=== PATIENT | male | born 1930 | race Caucasian/White ===

== ENCOUNTER 2016-06-04 16:49 | Inpatient (IN) | payer MEDICARE, OTHER ==
[2016-06-04] MEDS ORDERED: ACETAMINOPHEN IV (For NPO) 1,000 MG in EMPTY BAG 1 BAG IVPB STA (17:15)
[2016-06-04] MEDS: SODIUM CHLORIDE 0.9% 500 ML IV SCH ×2 (17:20→18:15)
[2016-06-04 17:28] LABS: Basophils % (A) 0 %; CH 32.2; CHCM 34.3; Eosinophils % (A) 0 %; HCT 39.7 % (39.0-53.0); HDW 2.53; HGB 13.5 gm/dL (13.0-17.5); Luc # (Auto) 0.11; Luc % (Auto) 1; Lymphocytes # (A) 0.5 k/uL (1.0-4.8); Lymphocytes % (A) 3 %; MCV 94.3 fL (80.0-100.0); Mean Platelet Volume 8.2; Monocytes # (A) 0.9 k/uL (0-1.0); Monocytes % (A) 6 %; Neutrophils # (A) 12.9 k/uL (1.3-7.7); Neutrophils % (A) 89 %; RBC 4.21 m/uL (4.30-5.90); RDW 13.3 % (11.5-15.5); WBC 14.5 k/uL (3.8-10.6); WBC (Perox) 14.65
--- NOTE | 2016-06-04 17:31 | ED ---
General Adult HPI - General Chief complaint: Altered Mental Status Stated complaint: Altered Mental Time Seen by Provider: 06/04/16 16:57 Source: patient, EMS, RN notes reviewed Mode of arrival: EMS Limitations: no limitations, altered mental status - History of Present Illness Initial comments: Patient is a pleasant 85-year-old male presenting to the emergency department complaining of reported change in mental status. Patient states he feels fine and has no real complaints. Patient does admit to occasional cough. Patient reportedly has chronic mental status problems however worse today. Patient denies chest pain. No abdominal pain. No dysuria. Patient states he does not normally know what the year is. Patient denies fever. - Related Data Home Medications Medication Instructions Recorded Confirmed Aspirin EC [Ecotrin Low Dose] 81 mg PO DAILY 05/02/15 06/04/16 Donepezil [Aricept] 20 mg PO DAILY 05/02/15 06/04/16 Gabapentin [Neurontin] 600 mg PO BID 05/02/15 06/04/16 Oxybutynin Chloride [Ditropan] 5 mg PO DAILY 05/02/15 06/04/16 Terazosin [Hytrin] 5 mg PO HS 05/02/15 06/04/16 Ferrous Sulfate [Feosol] 325 mg PO BID 06/04/16 06/04/16 Gabapentin [Neurontin] 300 mg PO HS 06/04/16 06/04/16 Glucosamine HCl/Chondr Downing A Na 1 tab PO DAILY 06/04/16 06/04/16 [Osteo Bi-Flex Caplet] HYDROcodone/APAP 10-325MG [[place] 1 tab PO QID PRN 06/04/16 06/04/16 10-325] Metoprolol Tartrate [Lopressor] 12.5 mg PO BID 06/04/16 06/04/16 Omeprazole 20 mg PO DAILY 06/04/16 06/04/16 Simvastatin [Zocor] 20 mg PO HS 06/04/16 06/04/16 Allergies Allergy/AdvReac Type Severity Reaction Status Date / Time No Known Allergies Allergy Verified 06/04/16 17:28 Review of Systems ROS Statement: Those systems with pertinent positive or pertinent negative responses have been documented in the HPI. ROS Other: All systems not noted in ROS Statement are negative. Constitutional: Denies: fever Eyes: Denies: eye pain ENT: Denies: ear pain Respiratory: Reports: cough Cardiovascular: Denies: chest pain Endocrine: Denies: fatigue Gastrointestinal: Denies: abdominal pain Genitourinary: Denies: dysuria Musculoskeletal: Denies: back pain Skin: Denies: rash Neurological: Reports: confusion. Denies: headache Past Medical History Past Medical History: Hyperlipidemia, Hypertension Additional Past Medical History / Comment(s): neuropathy History of Any Multi-Drug Resistant Organisms: None Reported Past Surgical History: Back Surgery Past Psychological History: Depression Smoking Status: Former smoker Past Alcohol Use History: None Reported Past Drug Use History: None Reported General Exam Limitations: no limitations, altered mental status General appearance: alert, in no apparent distress Head exam: Present: atraumatic Eye exam: Present: normal appearance, PERRL ENT exam: Present: normal oropharynx Neck exam: Present: normal inspection. Absent: meningismus Respiratory exam: Present: normal lung sounds bilaterally Cardiovascular Exam: Present: normal rhythm, tachycardia GI/Abdominal exam: Present: soft. Absent: tenderness Extremities exam: Present: normal inspection. Absent: pedal edema, calf tenderness Neurological exam: Present: alert Psychiatric exam: Present: normal affect, normal mood Skin exam: Absent: rash Course Vital Signs 06/04/16 06/04/16 16:51 17:26 Temperature 101.8 F H Pulse Rate 106 H 96 Respiratory 18 18 Rate Blood Pressure 123/82 110/61 O2 Sat by Pulse 95 100 Oximetry - Reevaluation(s) Reevaluation #1: 06/04/16 17:59 Patient found to have urinary tract infection. Patient does meet sepsis criteria, diagnosed at 17:59. IV antibiotics have been ordered. EKG Findings - EKG Comments: EKG Findings:: Sinus tachycardia 105 PVC. MD 200. QRS 88. QT 338. QTC 446. Normal axis. Normal QRS. Normal ST-T. Medical Decision Making - Medical Decision Making Dr. rosales has been paged for admission. Patient reevaluated. Patient and family updated on results and plan. Admission orders written. - Lab Data Result diagrams: 06/04/16 17:00 06/04/16 17:00 Lab Results 06/04/16 06/04/16 06/04/16 Range/Units 17:00 17:00 17:00 WBC 14.5 H (3.8-10.6) k/uL RBC 4.21 L (4.30-5.90) m/uL Hgb 13.5 (13.0-17.5) gm/dL Hct 39.7 (39.0-53.0) % MCV 94.3 (80.0-100.0) fL MCH 32.0 (25.0-35.0) pg MCHC 34.0 (31.0-37.0) g/dL RDW 13.3 (11.5-15.5) % Plt Count 108 L (150-450) k/uL Neutrophils % 89 % Lymphocytes % 3 % Monocytes % 6 % Eosinophils % 0 % Basophils % 0 % Neutrophils # 12.9 H (1.3-7.7) k/uL Lymphocytes # 0.5 L (1.0-4.8) k/uL Monocytes # 0.9 (0-1.0) k/uL Eosinophils # 0.0 (0-0.7) k/uL Basophils # 0.0 (0-0.2) k/uL PT (9.0-12.0) sec INR (<1.1) APTT (22.0-30.0) sec Sodium 135 L (137-145) mmol/L Potassium 4.0 (3.5-5.1) mmol/L Chloride 100 (98-107) mmol/L Carbon Dioxide 26 (22-30) mmol/L Anion Gap 9 mmol/L BUN 17 (9-20) mg/dL Creatinine 1.25 (0.66-1.25) mg/dL Est GFR (MDRD) Af Amer >60 (>60 ml/min/1.73 sqM) Est GFR (MDRD) Non-Af 55 (>60 ml/min/1.73 sqM) Glucose 114 H (74-99) mg/dL Plasma Lactic Acid Guillermo (0.7-2.0) mmol/L Calcium 9.1 (8.4-10.2) mg/dL Total Bilirubin 2.0 H (0.2-1.3) mg/dL AST 23 (17-59) U/L ALT 26 (21-72) U/L Alkaline Phosphatase 86 (38-126) U/L Total Creatine Kinase 85 (55-170) U/L CK-MB (CK-2) 0.9 (0.0-2.4) ng/mL CK-MB (CK-2) Rel Index 1.1 Troponin I 0.029 (0.000-0.034) ng/mL Total Protein 6.4 (6.3-8.2) g/dL Albumin 3.7 (3.5-5.0) g/dL Urine Color Urine Appearance (Clear) Urine pH (5.0-8.0) Ur Specific [place] (1.001-1.035) Urine Protein (Negative) Urine Glucose (UA) (Negative) Urine Ketones (Negative) Urine Blood (Negative) Urine Nitrate (Negative) Urine Bilirubin (Negative) Urine Urobilinogen (<2.0) mg/dL Ur Leukocyte Esterase (Negative) Urine RBC (0-5) /hpf Urine WBC (0-5) /hpf Urine WBC Clumps (None) /hpf Urine Bacteria (None) /hpf Urine Mucus (None) /hpf Influenza Type A RNA (Not Detectd) Influenza Type B (PCR) (Not Detectd) 06/04/16 06/04/16 06/04/16 Range/Units 17:00 17:00 17:00 WBC (3.8-10.6) k/uL RBC (4.30-5.90) m/uL Hgb (13.0-17.5) gm/dL Hct (39.0-53.0) % MCV (80.0-100.0) fL MCH (25.0-35.0) pg MCHC (31.0-37.0) g/dL RDW (11.5-15.5) % Plt Count (150-450) k/uL Neutrophils % % Lymphocytes % % Monocytes % % Eosinophils % % Basophils % % Neutrophils # (1.3-7.7) k/uL Lymphocytes # (1.0-4.8) k/uL Monocytes # (0-1.0) k/uL Eosinophils # (0-0.7) k/uL Basophils # (0-0.2) k/uL PT 11.7 (9.0-12.0) sec INR 1.2 (<1.1) APTT 25.5 (22.0-30.0) sec Sodium (137-145) mmol/L Potassium (3.5-5.1) mmol/L Chloride (98-107) mmol/L Carbon Dioxide (22-30) mmol/L Anion Gap mmol/L BUN (9-20) mg/dL Creatinine (0.66-1.25) mg/dL Est GFR (MDRD) Af Amer (>60 ml/min/1.73 sqM) Est GFR (MDRD) Non-Af (>60 ml/min/1.73 sqM) Glucose (74-99) mg/dL Plasma Lactic Acid Guillermo 1.2 (0.7-2.0) mmol/L Calcium (8.4-10.2) mg/dL Total Bilirubin (0.2-1.3) mg/dL AST (17-59) U/L ALT (21-72) U/L Alkaline Phosphatase (38-126) U/L Total Creatine Kinase (55-170) U/L CK-MB (CK-2) (0.0-2.4) ng/mL CK-MB (CK-2) Rel Index Troponin I (0.000-0.034) ng/mL Total Protein (6.3-8.2) g/dL Albumin (3.5-5.0) g/dL Urine Color Urine Appearance (Clear) Urine pH (5.0-8.0) Ur Specific [place] (1.001-1.035) Urine Protein (Negative) Urine Glucose (UA) (Negative) Urine Ketones (Negative) Urine Blood (Negative) Urine Nitrate (Negative) Urine Bilirubin (Negative) Urine Urobilinogen (<2.0) mg/dL Ur Leukocyte Esterase (Negative) Urine RBC (0-5) /hpf Urine WBC (0-5) /hpf Urine WBC Clumps (None) /hpf Urine Bacteria (None) /hpf Urine Mucus (None) /hpf Influenza Type A RNA Not Detected (Not Detectd) Influenza Type B (PCR) Not Detected (Not Detectd) 06/04/16 Range/Units 17:00 WBC (3.8-10.6) k/uL RBC (4.30-5.90) m/uL Hgb (13.0-17.5) gm/dL Hct (39.0-53.0) % MCV (80.0-100.0) fL MCH (25.0-35.0) pg MCHC (31.0-37.0) g/dL RDW (11.5-15.5) % Plt Count (150-450) k/uL Neutrophils % % Lymphocytes % % Monocytes % % Eosinophils % % Basophils % % Neutrophils # (1.3-7.7) k/uL Lymphocytes # (1.0-4.8) k/uL Monocytes # (0-1.0) k/uL Eosinophils # (0-0.7) k/uL Basophils # (0-0.2) k/uL PT (9.0-12.0) sec INR (<1.1) APTT (22.0-30.0) sec Sodium (137-145) mmol/L Potassium (3.5-5.1) mmol/L Chloride (98-107) mmol/L Carbon Dioxide (22-30) mmol/L Anion Gap mmol/L BUN (9-20) mg/dL Creatinine (0.66-1.25) mg/dL Est GFR (MDRD) Af Amer (>60 ml/min/1.73 sqM) Est GFR (MDRD) Non-Af (>60 ml/min/1.73 sqM) Glucose (74-99) mg/dL Plasma Lactic Acid Guillermo (0.7-2.0) mmol/L Calcium (8.4-10.2) mg/dL Total Bilirubin (0.2-1.3) mg/dL AST (17-59) U/L ALT (21-72) U/L Alkaline Phosphatase (38-126) U/L Total Creatine Kinase (55-170) U/L CK-MB (CK-2) (0.0-2.4) ng/mL CK-MB (CK-2) Rel Index Troponin I (0.000-0.034) ng/mL Total Protein (6.3-8.2) g/dL Albumin (3.5-5.0) g/dL Urine Color Yellow Urine Appearance Turbid (Clear) Urine pH 5.5 (5.0-8.0) Ur Specific [place] 1.013 (1.001-1.035) Urine Protein 2+ H (Negative) Urine Glucose (UA) Negative (Negative) Urine Ketones Negative (Negative) Urine Blood Moderate H (Negative) Urine Nitrate Positive (Negative) Urine Bilirubin Negative (Negative) Urine Urobilinogen 2.0 (<2.0) mg/dL Ur Leukocyte Esterase Large H (Negative) Urine RBC 50 H (0-5) /hpf Urine WBC >182 H (0-5) /hpf Urine WBC Clumps Many H (None) /hpf Urine Bacteria Occasional H (None) /hpf Urine Mucus Rare H (None) /hpf Influenza Type A RNA (Not Detectd) Influenza Type B (PCR) (Not Detectd) - Radiology Data Radiology results: report reviewed (Computed tomography scan of the brain shows atrophy, no acute process.), image reviewed (Chest x-ray shows no acute process) Critical Care Time Critical Care Time: Yes Total Critical Care Time: 32 Disposition Clinical Impression: Sepsis, Altered mental status, Urinary tract infection Disposition: ADMITTED IP TO THIS HOSP
[2016-06-04 17:35] LABS: Appearance,Urine Turbid (Clear); Bacteria,Urine Occasional /hpf; Bilirubin,Urine Negative (Negative); Glucose,Urine (UA) Negative (Negative); Ketones,Urine Negative (Negative); Leukocyte Esterase,Urine Large (Negative); Mucus,Urine Rare /hpf; Nitrite,Urine Positive (Negative); PH, Urine 5.5 (5.0-8.0); Particle Count 18441; Protein,Urine 2+ (Negative); RBC,Urine 50 /hpf (0-5); Specific Gravity,Urine 1.013 (1.001-1.035); UA Billing (MACRO vs. MICRO) MICRO; WBC,Urine >182 /hpf (0-5)
[2016-06-04 17:37] LABS: INR 1.2 (<1.1); Partial Thromboplastin Time 25.5 sec (22.0-30.0); Prothrombin Time 11.7 sec (9.0-12.0)
[2016-06-04 17:44] LABS: ALT 26 U/L (21-72); AST 23 U/L (17-59); Alkaline Phosphatase 86 U/L (38-126); Anion Gap 9 mmol/L; Blood Urea Nitrogen 17 mg/dL (9-20); Calcium 9.1 mg/dL (8.4-10.2); Carbon Dioxide 26 mmol/L (22-30); Chloride 100 mmol/L (98-107); Glucose 114 mg/dL (74-99); Non-African American GFR(MDRD) 55 (>60 ml/min/1.73 sqM); Sodium 135 mmol/L (137-145); Total Protein 6.4 g/dL (6.3-8.2)
--- NOTE | 2016-06-04 17:57 | XR ---
EXAMINATION TYPE: XR chest 2V DATE OF EXAM: 06/04/2016 5:53 PM COMPARISON: 05/02/2015 HISTORY: Fever and altered mental status TECHNIQUE: Frontal and lateral views of the chest are obtained. FINDINGS: Heart and mediastinum are normal. Lungs are clear of consolidation. There are no hilar mas ses. Thoracic aorta is atheromatous. There is no pleural effusion. There is spurring in the thoracic spine. There are chest leads. IMPRESSION: No active cardiopulmonary disease. No change.
--- NOTE | 2016-06-04 17:58 | CT ---
EXAMINATION TYPE: CT brain wo con DATE OF EXAM: 06/04/2016 5:53 PM COMPARISON: NONE HISTORY: Confusion. CT DLP: 1082.00 mGycm Automated exposure control for dose reduction was used. FINDINGS: There is cerebral cortical atrophy. There is no mass effect nor midline shift. There is no sign of in tracranial hemorrhage. Calvarium is intact. IMPRESSION: Cerebral atrophy. No acute intracranial abnormality.
[2016-06-04 17:59] LABS: Creatine Kinase MB 0.9 ng/mL (0.0-2.4); Troponin I 0.029 ng/mL (0.000-0.034)
[2016-06-04] MEDS ORDERED: LEVOFLOXACIN 750MG-D5W PMX 750 MG in DEXTROSE/WATER 1 150ML.BAG IVPB STA (17:59)
[2016-06-04] MEDS ORDERED: NALOXONE 0.4 MG/ML 1 ML VIAL IV PRN (18:08)
[2016-06-04] MEDS: SODIUM CHLORIDE 0.9% 1,000 ML IV SCH (18:15)
[2016-06-04] MEDS ORDERED: GABAPENTIN 300 MG CAP PO STA (21:07)
[2016-06-04] MEDS: HYDROcodone/APAP 10-325MG 1 EACH TAB PO PRN (21:30)
[2016-06-04] MEDS ORDERED: SODIUM CHLORIDE 0.9% 2,500 ML IV ONE (21:54)
[2016-06-04 22:16] LABS: Glucose,Whole Blood 88 mg/dL (75-99)
[2016-06-05] LABS: Creatine Kinase MB 1.9 ng/mL (0.0-2.4)
[2016-06-05 00:01] LABS: Troponin I 0.179 ng/mL (0.000-0.034)
[2016-06-05] MEDS: HEPARIN SODIUM,PORCINE 5,000 UNIT/ML 1 ML VIAL SQ SCH ×4 (00:32→23:42)
[2016-06-05] MEDS: HYDROcodone/APAP 10-325MG 1 EACH TAB PO PRN (03:24)
[2016-06-05 05:11] LABS: Anion Gap 8 mmol/L; Blood Urea Nitrogen 16 mg/dL (9-20); Calcium 8.3 mg/dL (8.4-10.2); Carbon Dioxide 24 mmol/L (22-30); Chloride 107 mmol/L (98-107); Glucose 104 mg/dL (74-99); Magnesium 1.5 mg/dL (1.6-2.3); Non-African American GFR(MDRD) 58 (>60 ml/min/1.73 sqM); Phosphorous 3.6 mg/dL (2.5-4.5); Potassium 4.3 mmol/L (3.5-5.1); Sodium 139 mmol/L (137-145)
[2016-06-05 05:18] LABS: Basophils % (A) 0 %; CH 31.4; CHCM 32.8; Eosinophils % (A) 0 %; HCT 36.6 % (39.0-53.0); HDW 2.56; HGB 12.1 gm/dL (13.0-17.5); Luc # (Auto) 0.16; Luc % (Auto) 1; Lymphocytes # (A) 0.8 k/uL (1.0-4.8); Lymphocytes % (A) 6 %; MCH 31.7 pg (25.0-35.0); MCV 96.1 fL (80.0-100.0); Mean Platelet Volume 7.3; Monocytes # (A) 0.8 k/uL (0-1.0); Monocytes % (A) 6 %; Neutrophils # (A) 12.1 k/uL (1.3-7.7); Neutrophils % (A) 88 %; RDW 13.5 % (11.5-15.5); WBC 13.8 k/uL (3.8-10.6); WBC (Perox) 14.36
[2016-06-05] MEDS ORDERED: Magnesium Replacement Protocol 1 EACH MISC MISCELLANE PRN (05:20)
[2016-06-05 05:33] LABS: Creatine Kinase MB 5.3 ng/mL (0.0-2.4); Troponin I 1.19 ng/mL (0.000-0.034)
[2016-06-05 05:59] LABS: Manual Review Performed
[2016-06-05] MEDS: MAGNESIUM SULFATE-D5W PMX 1 GM in DEXTROSE/WATER 1 100ML.BAG IVPB SCH ×3 (05:59→07:07)
--- NOTE | 2016-06-05 08:30 | XR ---
"EXAMINATION TYPE: XR chest 1V DATE OF EXAM: 06/05/2016 6:35 AM CLINICAL HISTORY: Difficulty breathing and fever progress study. TECHNIQUE: Single AP portable upright view of the chest is obtained. COMPARISON: Chest x-ray from one day earlier and older study May 02, 2015. FINDINGS: Cardiac silhouette size is stable and upper limits of normal atherosclerotic thoracic aort a. There is chronic parenchymal change bilaterally without suspicious focal airspace opacity, pleural effusion, or pneumothorax seen. Osseous structures are demineralized. Suspect nodule left upper lobe IMPRESSION: Overall stable findings, chronic parenchymal change without acute pulmonary process. Po ssible left upper lobe pulmonary nodule, advised CT correlation. A Yellow message has been communicated to Clarice Granda MD via the [employer] | Critical Result sy stem on 06/05/2016 8:27 AM, Message ID [id number]."
[2016-06-05] MEDS ORDERED: OXYBUTYNIN CHLORIDE 5 MG TAB PO SCH (09:00)
[2016-06-05] MEDS: SODIUM CHLORIDE 0.9% 1,000 ML IV SCH ×2 (09:04→22:00)
[2016-06-05] MEDS: ASPIRIN 81 MG CHEW PO SCH (09:04)
[2016-06-05] MEDS: DONEPEZIL 10 MG TAB PO SCH (09:05)
[2016-06-05] MEDS: GABAPENTIN 300 MG CAP PO SCH ×2 (09:05→22:24)
[2016-06-05] MEDS: FERROUS SULFATE 325 MG TAB PO SCH ×2 (09:05→22:24)
[2016-06-05] MEDS: PANTOPRAZOLE 40 MG TABLET PO SCH (09:05)
[2016-06-05] MEDS: METOPROLOL TARTRATE 12.5 MG TAB PO SCH ×2 (09:06→22:24)
--- NOTE | 2016-06-05 10:31 | P.CNPUL ---
History of Present Illness Consult date: 06/05/16 Reason for consult: other Chief complaint: Mental status changes and urosepsis History of present illness: 85-year-old gentleman who was admitted to the emergency department. Seen by one of the ER doctors for mental status changes. The patient Don really apparently had no additional complaints in the emergency department. Very hard of hearing. Apparently had a bit of a cough as well. The patient was apparently discovered to have a bladder infection. The patient was initially admitted from the ER to the [facility] surgical floor and then went to the ICU. The patient had an elevated lactate of 4.6. It dropped down to 1.1. Based on the ER documentation, and his quick sofa score, he only had 1 out of 3 that were positive. That was the mental status. Currently the patient's on no pressors. He is getting 0.9 IV at 75 mL an hour. No supplemental oxygen. He was admitted on June 04. Doing very well. Can be transferred out of the ICU. Review of Systems The patient is very hard of hearing. This hard to get it review of systems on this patient. He apparently is not having any difficulty now. Apparently came into the emergency room with mental status changes. Hard to evaluate at this point. Past Medical History Past Medical History: Hyperlipidemia, Hypertension Additional Past Medical History / Comment(s): neuropathy History of Any Multi-Drug Resistant Organisms: None Reported Past Surgical History: Back Surgery Additional Past Surgical History / Comment(s): 2 knee repoacements, bilateral cataracts, hernia surgery Past Anesthesia/Blood Transfusion Reactions: No Reported Reaction Past Psychological History: Depression Smoking Status: Former smoker Past Alcohol Use History: None Reported Past Drug Use History: None Reported Medications and Allergies Home Medications Medication Instructions Recorded Confirmed Type Aspirin EC [Ecotrin Low Dose] 81 mg PO DAILY 05/02/15 06/04/16 History Donepezil [Aricept] 20 mg PO DAILY 05/02/15 06/04/16 History Gabapentin [Neurontin] 600 mg PO BID 05/02/15 06/04/16 History Oxybutynin Chloride [Ditropan] 5 mg PO DAILY 05/02/15 06/04/16 History Terazosin [Hytrin] 5 mg PO HS 05/02/15 06/04/16 History Ferrous Sulfate [Feosol] 325 mg PO BID 06/04/16 06/04/16 History Gabapentin [Neurontin] 300 mg PO HS 06/04/16 06/04/16 History Glucosamine HCl/Chondr [place] A Na 1 tab PO DAILY 06/04/16 06/04/16 History [Osteo Bi-Flex Caplet] HYDROcodone/APAP 10-325MG [[place] 1 tab PO QID PRN 06/04/16 06/04/16 History 10-325] Metoprolol Tartrate [Lopressor] 12.5 mg PO BID 06/04/16 06/04/16 History Omeprazole 20 mg PO DAILY 06/04/16 06/04/16 History Simvastatin [Zocor] 20 mg PO HS 06/04/16 06/04/16 History Allergies Allergy/AdvReac Type Severity Reaction Status Date / Time No Known Allergies Allergy Verified 06/04/16 17:28 Physical Exam Osteopathic Statement: *. No significant issues noted on an osteopathic structural exam other than those noted in the History and Physical/Consult. Vitals: Vital Signs Temp Pulse Pulse Resp BP BP Pulse Ox 06/05/16 09:00 97.9 F 64 22 113/59 96 06/05/16 08:30 70 26 H 115/65 94 L 06/05/16 08:00 64 19 115/65 95 06/05/16 07:30 64 16 108/55 87 L 06/05/16 07:00 57 L 15 113/59 98 06/05/16 06:30 65 22 115/64 95 06/05/16 06:00 61 16 108/57 95 06/05/16 05:00 70 15 110/60 93 L 06/05/16 04:00 66 22 118/65 97 06/05/16 03:00 82 15 102/61 94 L 06/05/16 02:00 85 18 109/60 97 06/05/16 01:00 89 19 111/63 98 06/05/16 00:00 99.1 F 96 24 116/62 96 06/04/16 23:00 106 H 52 H 129/56 90 L 06/04/16 22:30 124 H 34 H 127/65 94 L 06/04/16 21:50 101.6 F H 146 H 127/69 94 L 06/04/16 19:03 99.5 F 86 18 116/61 96 Intake and Output 06/04/16 06/05/16 06/05/16 22:59 06:59 14:59 Intake Total 1999 2024 320 Output Total 50 815 260 Balance 1950 1210 60 Intake: IV 1999 2024 150 Sodium Chloride 0.9% 1, 450 150 000 ml @ 75 mls/hr IV . [id number] [facility] Rx#:[id number] Sodium Chloride 0.9% 1999 1575 500 ml @ 999 mls/hr IV . Q2H31M [facility] Rx#:[id number] Intake, IV Titration 50 Amount cefTRIAXone 1,000 mg In 50 Sodium Chloride 0.9% 50 ml @ 100 mls/hr IVPB Q24HR [facility] Rx#:[id number] Tube Feeding 120 Output: Urine 50 815 260 Other: Voiding Method Bedside Commode Indwelling Catheter # Voids 7 # Bowel Movements 1 Weight 82.6 kg No acute distress, hard of hearing. Seems oriented. HEENT examination is grossly unremarkable. Mucous membranes are moist. He is wearing hearing aids. Neck supple. Full range of motion. No adenopathy. Cardiovascular examination reveals regular rhythm rate. S1-S2 normal. Heart rate 80. Lungs are clear breath sounds are equal. No wheezes rhonchi or crackles. Abdomen soft bowel sounds are heard. Extremities are intact. Results - Laboratory Findings CBC and BMP: 06/05/16 04:44 06/05/16 04:44 PT/INR, D-dimer PT 11.7 sec (9.0-12.0) 06/04/16 17:00 INR 1.2 (<1.1) 06/04/16 17:00 Abnormal lab findings: Abnormal Labs 06/04/16 06/04/16 06/05/16 21:18 23:11 04:44 WBC RBC Hgb Hct Plt Count Neutrophils # Lymphocytes # Glucose Plasma Lactic Acid Guillermo 4.6 H* Calcium Magnesium Total Creatine Kinase 217 H 273 H CK-MB (CK-2) 5.3 H* Troponin I 0.179 H* 1.190 H* 06/05/16 06/05/16 04:44 04:44 WBC 13.8 H RBC 3.80 L Hgb 12.1 L Hct 36.6 L Plt Count 91 L Neutrophils # 12.1 H Lymphocytes # 0.8 L Glucose 104 H Plasma Lactic Acid Guillermo Calcium 8.3 L Magnesium 1.5 L Total Creatine Kinase CK-MB (CK-2) Troponin I - Diagnostic Findings Chest x-ray: image reviewed (X-rays labs and medications are all reviewed.) Assessment and Plan (1) Altered mental status Status: Acute (2) Sepsis Status: Acute (3) Urinary tract infection Status: Acute Plan: The patient's doing well. Lactate is back down to normal range. Never required any pressors. Hemodynamically stable. Stable from the respiratory standpoint. The patient can be transferred out to the general medical floor. Medication labs and x-rays are reviewed. Time with Patient: Greater than 30
--- NOTE | 2016-06-05 14:42 | HP ---
DATE OF ADMISSION: An 85-year-old, came in with altered mental status and patient has leukocytosis. Patient's urine is significantly abnormal, patient is on oxybutynin. No other source of infection was appreciated. Patient denied any suprapubic pain, patient denied any dysuria. Patient confusion improved at this point of time. Patient has moderate to advanced dementia. Patient's lactic acid was elevated because of which patient was admitted to ICU, now is going out of ICU. Patient is on Rocephin at this point of time. Patient's urine is significantly abnormal including large leukocyte esterase, WBC 182, occasional bacteria and patient also has elevated troponins, because of which Cardiology was consulted. EKG showed sinus tachycardia. Patient denied any chest pain, I did not see any significant ST-T waves on the EKG and patient's tachycardia resolved at this point of time. That is probably because of sepsis and of for elevated troponins, Cardiology was consulted. REVIEW OF SYSTEMS: Except for those mentioned above, the rest of the review of systems are negative. Patient denied any cough with sputum production and much of the review of systems we are unable to obtain because of his clinical condition. PAST MEDICAL HISTORY: Hyperlipidemia, hypertension, overactive bladder apparently and dementia, unknown what kind of dementia patient has. Appears to have moderate to severe dementia, patient is alert and oriented times around 2, which is his baseline. Patient is back to his baseline, former smoker. FAMILY HISTORY: Not available and patient cannot give me any family history and irrelevant at this point of time. Home medications include aspirin, Donepezil, gabapentin, oxybutynin, terazosin, ferrous sulfate, glucosamine, hydrocodone, acetaminophen, metoprolol, omeprazole, simvastatin. ALLERGIES: No known drug allergies. PHYSICAL EXAMINATION: VITAL SIGNS: Temperature 98.0, pulse of 58, respiratory rate of 16, blood pressure is 132/73. Saturating at 93% on room air. GENERAL: Alert and oriented x2, which is his baseline. Patient did have fever high-grade fever of 101.8 on admission. HEENT: Pupils are round and equally reacting to light. EOMI. No scleral icterus. No conjunctival pallor. Normocephalic, atraumatic. No pharyngeal erythema. No thyromegaly. CARDIOVASCULAR: S1 and S2 present. No murmurs, rubs, or gallops. PULMONARY: Chest is clear to auscultation, no wheezing or crackles. ABDOMEN: Soft, nontender, nondistended, normoactive bowel sounds. No palpable organomegaly. MUSCULOSKELETAL: No joint swelling or deformity. EXTREMITIES: No cyanosis, clubbing, or pedal edema. NEUROLOGICAL: Gross neurological examination did not reveal any focal deficits. SKIN: No rashes. LABORATORY DATA: Significant ones, patient WBC count has come down from 14,500 to 13,800. Urine cultures are pending. UA as mentioned above. Patient has a Quiroz catheter which we will try and get rid of Quiroz catheter and see if he can urinate by himself and patient was started on Flomax with the covering physician. Patient's sodium was 135, now 139 and patient had elevated lactic acid of around 4.5, now 1.1 with IV fluid resuscitation. Patient is getting 75 mL of normal saline. Initial troponin was 0.029, followed by 0.179, now 1.19. ASSESSMENT AND PLAN: 1. Severe sepsis secondary to urinary tract infection leading to toxic encephalopathy and patient is on IV antibiotics and IV fluids. 2. Elevated troponin, probably due to severe sepsis. 3. Supraventricular tachycardia secondary to sepsis again. 4. Moderate to severe dementia, unknown what type of dementia patient has, either senile dementia, or dementia of Alzheimer's type. Can be vascular dementia, too. Patient's mental status is at his baseline now. 5. Hypertension. 6. Hyperlipidemia for which will continue his home medications. Patient may have overactive bladder. Quiroz catheter will be removed and will see if he can urinate. 7. Peripheral neuropathy. I will avoid [place]. Patient will be transferred out of ICU.
--- NOTE | 2016-06-05 17:04 | CONS ---
DATE OF CONSULTATION: Mr. Ambrosio is an 85-year-old gentleman who is seen for cardiac evaluation. This patient's medical records are reviewed. Patient was admitted through the emergency room with change in mental status. Patient has been treated for urosepsis. We are requested to see this patient in consultation because of the abnormal troponin. Patient has a history of hypertension and hyperlipidemia. Patient did not complain of any chest pain. Patient denies any prior history of myocardial infarction. Patient is physically independent. He does have a problem with memory and has been on medications, but there is no history of congestive cardiac failure. Patient is not having any anginal pain with routine activities. Past medical history includes: 1. History of hyperlipidemia. 2. Hypertension. 3. Total knee replacement. 4. Bilateral cataract surgery. 5. Hernia surgery. Patient's home medications included: 1. Aspirin. 2. Neurontin. 3. Ditropan. 4. Lopressor 12.5 mg b.i.d. 5. Zocor 20 mg daily. Physical examination at present reveals an 85-year-old gentleman who is afebrile now. Blood pressure is 132/73 mmHg. Oxygen saturation is 93%. Head/ENT examination is negative. Neck is supple. There is no increase in jugular venous pressure. Both the carotid pulses are felt. There is no bruit. Chest is symmetrical. HEART: The PMI is not felt. First and second heart sounds are normal. There is no evidence of any murmur. Lungs are clinically clear to auscultation and percussion. Abdomen is soft. Liver and spleen are not enlarged. Bowel sounds are heard. EXTREMITIES: Peripheral pulsations are 1+. EKG shows normal sinus rhythm without any acute ischemic changes. Patient's initial troponin was 0.029. Subsequently maximum troponin of 1.1 is noted. Patient's urine shows many WBCs in clumps and positive leukocyte esterase. FINAL IMPRESSION: This patient is primarily admitted with urosepsis and he seems to be improving. Patient has a borderline elevation in the troponin without any ischemic changes on the EKG or clinical symptoms suggestive of angina. This is most likely related to sepsis or [id number] mismatch. We will do an echocardiogram to rule out any wall motion abnormality. I will continue the patient on baby aspirin and beta nona.
[2016-06-05] MEDS ORDERED: LEVOFLOXACIN 750MG-D5W PMX 750 MG in DEXTROSE/WATER 1 150ML.BAG IVPB SCH (18:00)
[2016-06-05] MEDS: ATORVASTATIN 10 MG TAB PO SCH (22:01)
[2016-06-05] MEDS: TERAZOSIN 5 MG CAP PO SCH (22:24)
[2016-06-06 07:26] LABS: CH 31.7; CHCM 33.8; HCT 35.6 % (39.0-53.0); HDW 2.66; HGB 12.1 gm/dL (13.0-17.5); MCH 32.1 pg (25.0-35.0); MCHC 34.1 g/dL (31.0-37.0); MCV 94.3 fL (80.0-100.0); Mean Platelet Volume 9.6; RBC 3.77 m/uL (4.30-5.90); RDW 13.7 % (11.5-15.5)
[2016-06-06 07:58] LABS: Anion Gap 9 mmol/L; Blood Urea Nitrogen 24 mg/dL (9-20); Calcium 8.8 mg/dL (8.4-10.2); Carbon Dioxide 23 mmol/L (22-30); Chloride 110 mmol/L (98-107); Glucose 86 mg/dL (74-99); Non-African American GFR(MDRD) 56 (>60 ml/min/1.73 sqM); Phosphorous 2.7 mg/dL (2.5-4.5); Potassium 4.2 mmol/L (3.5-5.1); Sodium 142 mmol/L (137-145)
[2016-06-06] MEDS: METOPROLOL TARTRATE 12.5 MG TAB PO SCH ×2 (08:59→21:13)
[2016-06-06] MEDS: GABAPENTIN 300 MG CAP PO SCH ×2 (08:59→21:12)
[2016-06-06] MEDS: ASPIRIN 81 MG CHEW PO SCH (09:00)
[2016-06-06] MEDS: DONEPEZIL 10 MG TAB PO SCH (09:00)
[2016-06-06] MEDS: SODIUM CHLORIDE 0.9% 1,000 ML IV SCH (09:05)
[2016-06-06] MEDS: HEPARIN SODIUM,PORCINE 5,000 UNIT/ML 1 ML VIAL SQ SCH ×2 (09:14→16:00)
[2016-06-06] MEDS: PANTOPRAZOLE 40 MG TABLET PO SCH (09:14)
--- NOTE | 2016-06-06 09:52 | ECHOF ---
Referral Reason:abnormal troponin MEASUREMENTS -------- HEIGHT: 177.8 cm WEIGHT: 82.5 kg BP: 90/41 RVIDd: 2.7 cm (< 3.3) IVSd: 1.1 cm (0.6 - 1.1) LVIDd: 4.9 cm (3.9 - 5.3) LVPWd: 1.2 cm (0.6 - 1.1) IVSs: 1.6 cm LVIDs: 3.9 cm LVPWs: 1.4 cm LA Diam: 4.3 cm (2.7 - 3.8) LAESV Index (A-L): 25.63 ml/m Ao Diam: 3.3 cm (2.0 - 3.7) AV Cusp: 1.7 cm (1.5 - 2.6) MV EXCURSION: 13.275 mm (> 18.000) MV EF SLOPE: 54 mm/s (70 - 150) MV E Omari: 1.28 m/s MV DecT: 321 ms MV A Omari: 1.13 m/s MV E/A Ratio: 1.13 AV maxP.02 mmHg AV meanP.40 mmHg RAP: 5.00 mmHg RVSP: 27.81 mmHg FINDINGS -------- Sinus rhythm with extra systolic beats. This was a technically adequate study. The left ventricular size is normal. There is borderline concentric left ventricular hypertrophy. Overall left ventricular systolic function is low-normal with, an EF between 50 - 55 %. The right ventricle is normal in size. Normal LA size by volume 22+/-6 ml/m2. The right atrium is normal in size. Interatrial septal aneurysm. Aortic valve is trileaflet and is moderately thickened. Trace amount of aortic regurgitation. There is moderate aortic stenosis present. Peak/mean gradient across the Aortic Valve is 36.02mmHg / 20.40mmHg. The mitral valve leaflets are mildly thickened. Mild mitral annular calcification present. There is trace mitral regurgitation. Mild tricuspid regurgitation present. Right ventricular systolic pressure is normal at < 35 mmHg. The pulmonic valve was not well visualized. The aortic root size is normal. There is no pericardial effusion. CONCLUSIONS -------- 1. Sinus rhythm with extra systolic beats. 2. Aortic valve is trileaflet and is moderately thickened. 3. Trace amount of aortic regurgitation. 4. There is moderate aortic stenosis present. 5. Peak/mean gradient across the Aortic Valve is 36.02mmHg / 20.40mmHg. 6. The mitral valve leaflets are mildly thickened. 7. Mild mitral annular calcification present. 8. There is trace mitral regurgitation. 9. Mild tricuspid regurgitation present. 10. Right ventricular systolic pressure is normal at < 35 mmHg. 11. The pulmonic valve was not well visualized. 12. This was a technically adequate study. 13. The aortic root size is normal. 14. There is no pericardial effusion. 15. The left ventricular size is normal. 16. There is borderline concentric left ventricular hypertrophy. 17. Overall left ventricular systolic function is low-normal with, an EF between 50 - 55 %. 18. The right ventricle is normal in size. 19. Normal LA size by volume 22+/-6 ml/m2. 20. The right atrium is normal in size. 21. Interatrial septal aneurysm. BUSINESS TRANSFORMATION MANAGER: Alea Wolfe RDCS
[2016-06-06] MEDS: FERROUS SULFATE 325 MG TAB PO SCH ×2 (10:21→21:13)
--- NOTE | 2016-06-06 11:37 | P.PN ---
Subjective Cardiology is consulted because of elevated troponin. Patient is free of chest pain. An echocardiogram showed normal LV function and wall motion. The exact etiology for elevated troponin is unclear. Objective - Vital Signs Vital signs: Vital Signs Temp 98.2 F 06/06/16 07:00 Pulse 66 06/06/16 07:00 Resp 16 06/06/16 07:00 BP 165/111 06/06/16 07:00 Pulse Ox 95 06/06/16 07:00 Intake & Output 06/05/16 06/06/16 06/06/16 18:59 06:59 18:59 Intake Total 545 840 Output Total 807 Balance -262 840 Weight 82.6 kg Intake: IV 375 600 Sodium Chloride 0.9% 1, 375 600 000 ml @ 75 mls/hr IV . [id number] [facility] Rx#:[id number] Intake, IV Titration 50 Amount cefTRIAXone 1,000 mg In 50 Sodium Chloride 0.9% 50 ml @ 100 mls/hr IVPB Q24HR [facility] Rx#:[id number] Oral 240 Tube Feeding 120 Output: Urine 770 Post Void Residual 37 Other: Voiding Method Indwelling Catheter Indwelling Catheter Urinal # Voids 7 6 1 # Bowel Movements 1 - Exam Comfortable at rest blood pressure is elevated there is a jugular venous distention carotid upstroke is diminished chest exam reveals occasional rhonchi bilaterally heart exam reveals first and second heart sounds no gallop abdomen is soft exam extremities did not reveal any edema per for pulses are felt - Labs CBC & Chem 7: 06/06/16 06:52 06/06/16 06:52 Labs: Abnormal Lab Results - Last 24 Hours (Table) 06/06/16 06/06/16 Range/Units 06:52 06:52 WBC 11.0 H (3.8-10.6) k/uL RBC 3.77 L (4.30-5.90) m/uL Hgb 12.1 L (13.0-17.5) gm/dL Hct 35.6 L (39.0-53.0) % Plt Count 90 L (150-450) k/uL Chloride 110 H (98-107) mmol/L BUN 24 H (9-20) mg/dL Assessment and Plan Plan: Elevated troponin Uncontrolled hypertension I will add Norvasc 5 mg daily for optimal blood pressure control if necessary increase the dose to 10 mg. Reviewed echo results with the patient.
[2016-06-06] MEDS: ACETAMINOPHEN TAB 325 MG TAB PO PRN ×2 (12:14→23:28)
[2016-06-06] MEDS: amLODIPine 5 MG TAB PO SCH (17:17)
[2016-06-06] MEDS: LACTATED RINGERS 1,000 ML IV SCH (17:17)
--- NOTE | 2016-06-06 18:41 | PN ---
Patient is an 85-year-old admitted for urinary tract infection. Patient is undergoing bladder scans at this point of time. Patient is on oxybutynin, because of which patient probably has urination problems, because of which patient had sepsis secondary to UTI. Patient is clinically doing much better and patient is getting IV fluids at 75 mL/hour which we will switch to lactated Ringers. REVIEW OF SYSTEMS: CARDIOVASCULAR: No chest pain, no orthopnea, no PND, no palpitations. PULMONARY: Denied any shortness of breath. No cough or hemoptysis. GASTROINTESTINAL: No diarrhea, nausea or vomiting. No abdominal pain. Normoactive bowel sounds. NEUROLOGIC: No headaches, no weakness, no numbness. Medications were reviewed. Medication changes as mentioned in the interval history. Microbiology cultures are still pending. Patient's leukocytosis improved. Patient has hyperchloremia, because of which I am changing his fluids to lactated Ringers. PHYSICAL EXAMINATION: VITAL SIGNS: Temperature 98.2, pulse of 66, respiratory rate of 16. Blood pressure is 160/111. Saturating at 94% on room air. GENERAL: Alert and oriented x2, which is baseline. Patient looks much better compared to yesterday. HEENT: Pupils are round and equally reacting to light. EOMI. No scleral icterus. No conjunctival pallor. Normocephalic, atraumatic. No pharyngeal erythema. No thyromegaly. CARDIOVASCULAR: S1 and S2 present. No murmurs, rubs, or gallops. PULMONARY: Chest is clear to auscultation, no wheezing or crackles. ABDOMEN: Soft, nontender, nondistended, normoactive bowel sounds. No palpable organomegaly. MUSCULOSKELETAL: No joint swelling or deformity. EXTREMITIES: No cyanosis, clubbing, or pedal edema. NEUROLOGICAL: Gross neurological examination did not reveal any focal deficits. SKIN: No rashes. LABORATORY DATA: As mentioned above. ASSESSMENT AND PLAN: 1. Severe sepsis secondary to urinary tract infection leading to toxic encephalopathy. Patient will continue with IV antibiotics. 2. Supraventricular tachycardia secondary to sepsis. 3. Elevated troponin secondary to severe sepsis. 4. Type II [id number] myocardial infarction. Cardiology evaluated the patient. 5. 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 6. Hypertension. 7. Hyperlipidemia. 8. Peripheral neuropathy.
[2016-06-06] MEDS: TERAZOSIN 5 MG CAP PO SCH (21:12)
[2016-06-06] MEDS: ATORVASTATIN 10 MG TAB PO SCH (21:13)
[2016-06-06] MEDS ORDERED: IPRATROPIUM-ALBUTEROL 3 ML NEB INHALATION PRN (23:15)
[2016-06-07] MEDS: HEPARIN SODIUM,PORCINE 5,000 UNIT/ML 1 ML VIAL SQ SCH ×2 (01:09→07:38)
[2016-06-07] MEDS: LACTATED RINGERS 1,000 ML IV SCH (05:55)
[2016-06-07] MEDS: IPRATROPIUM-ALBUTEROL 3 ML NEB INHALATION SCH ×2 (07:22→13:59)
[2016-06-07] MEDS: amLODIPine 5 MG TAB PO SCH (07:38)
[2016-06-07] MEDS: PANTOPRAZOLE 40 MG TABLET PO SCH (07:38)
[2016-06-07] MEDS: ACETAMINOPHEN TAB 325 MG TAB PO PRN (07:38)
[2016-06-07] MEDS: GABAPENTIN 300 MG CAP PO SCH (07:39)
[2016-06-07] MEDS: FERROUS SULFATE 325 MG TAB PO SCH (07:39)
[2016-06-07] MEDS: METOPROLOL TARTRATE 12.5 MG TAB PO SCH (07:39)
[2016-06-07] MEDS: DONEPEZIL 10 MG TAB PO SCH (07:39)
[2016-06-07] MEDS: ASPIRIN 81 MG CHEW PO SCH (07:39)
[2016-06-07 07:46] VITALS: BP 181/78; PULSE 72; RESP 16; TEMP 97.9
[2016-06-07 08:18] LABS: Magnesium 1.7 mg/dL (1.6-2.3); Phosphorous 3.1 mg/dL (2.5-4.5)
--- NOTE | 2016-06-07 11:17 | P.PN ---
Subjective Patient is feeling better ambulating without any problems denies chest pain or difficulty in breathing. Blood pressure is elevated today on amlodipine 5 mg daily. I advised the patient to increase amlodipine to 10 mg daily. Primary care physician and discharge will give him a prescription for the same. Objective - Vital Signs Vital signs: Vital Signs Temp 97.9 F 06/07/16 07:00 Pulse 60 06/07/16 07:41 Resp 16 06/07/16 07:00 BP 181/78 06/07/16 07:00 Pulse Ox 94 L 06/07/16 07:00 Intake & Output 06/06/16 06/07/16 06/07/16 18:59 06:59 18:59 Intake Total 675 Output Total 189 113 Balance -189 562 Intake: IV 675 Sodium Chloride 0.9% 1, 675 000 ml @ 75 mls/hr IV . [id number] [facility] Rx#:[id number] Output: Post Void Residual 189 113 Other: Voiding Method Urinal Urinal Urinal # Voids 1 2 # Bowel Movements 1 - Exam Comfortable at rest blood pressure is elevated at 180/70 there is a jugular venous distention chest exam reveals occasional rhonchi bilaterally heart exam reveals first and second heart sounds no gallop abdomen is soft exam extremities did not will any edema per for pulses are felt - Labs CBC & Chem 7: 06/06/16 06:52 06/06/16 06:52 Assessment and Plan Plan: Uncontrolled hypertension Elevated troponin Increase the dose of amlodipine to 10 mg daily
--- NOTE | 2016-06-07 18:28 | P.DS ---
Providers Date of admission: 06/04/16 18:08 Attending physician: Maxwell Rachel Consults: 06/04/16 22:29 Consult Physician Routine Consulting Provider: Clarice Granda Consult Reason/Comments: icu managment Do you want consulting provider notified?: Yes 06/05/16 00:25 Consult Physician Routine Consulting Provider: Ifeanyi Shea Consult Reason/Comments: elevated trop Do you want consulting provider notified?: Yes, Notify in am Primary care physician: Silver Robert Hospital Course: Final Diagnoses: 1. Severe sepsis secondary to acute UTI with E. coli being to toxic encephalopathy 2. SVT secondary to sepsis 3. Elevated troponin secondary to severe sepsis 4. Type II non-STEMI, evaluated by cardiology 5. 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 Hypertension 7. Hyperlipidemia 8. Peripheral neuropathy 9. Moderate aortic stenosis, EF 50-55% with interatrial septal aneurysm per echo Hospital course: This is an 85-year-old gentleman admitted with severe sepsis secondary to acute UTI with toxic encephalopathy. Elevated troponins ,SVT, evaluated by cardiology. Echo reported moderate aortic stenosis , LV function, EF 50-55%, interatrial septal aneurysm. Received IV fluid hydration, antibiotics with significant clinical improvement. Initially patient was having difficulty voiding, now voiding independently. Patient is being cleared for discharge by cardiology. Patient is being discharged home with in a stable condition with guarded prognosis. Patient Condition at Discharge: Stable Plan - Discharge Summary New Discharge Prescriptions: Ciprofloxacin HCl [Cipro] 500 mg PO Q12HR #14 tablet amLODIPine [Norvasc] 10 mg PO DAILY #30 tablet Discharge Medication List Aspirin EC [Ecotrin Low Dose] 81 mg PO DAILY 05/02/15 [History] Donepezil [Aricept] 20 mg PO DAILY 05/02/15 [History] Gabapentin [Neurontin] 600 mg PO BID 05/02/15 [History] Terazosin [Hytrin] 5 mg PO HS 05/02/15 [History] Ferrous Sulfate [Iron (65 MG Elemental)] 325 mg PO BID 06/04/16 [History] Gabapentin [Neurontin] 300 mg PO HS 06/04/16 [History] Glucosamine HCl/Chondr Downing A Na [Osteo Bi-Flex Caplet] 1 tab PO DAILY 06/04/16 [ History] HYDROcodone/APAP 10-325MG [[place] 10-325] 1 tab PO QID PRN 06/04/16 [History] Metoprolol Tartrate [Lopressor] 12.5 mg PO BID 06/04/16 [History] Omeprazole 20 mg PO DAILY 06/04/16 [History] Simvastatin [Zocor] 20 mg PO HS 06/04/16 [History] Ciprofloxacin HCl [Cipro] 500 mg PO Q12HR #14 tablet 06/07/16 [Rx] amLODIPine [Norvasc] 10 mg PO DAILY #30 tablet 06/07/16 [Rx] Follow up Appointment(s)/Referral(s): Ray Gonzalez MD [STAFF PHYSICIAN] - 1 Week Silver Robert MD [Primary Care Provider] - 06/15/16 2:45 pm Ifeanyi Shea MD [STAFF PHYSICIAN] - 2 Weeks Ambulatory/Diagnostic Orders: Complete Blood Count w/diff [LAB.AMB] Time Frame: 3 Days, Location: Determined By Patient Patient Instructions/Handouts: Ciprofloxacin (By mouth), Amlodipine (By mouth) , Urinary Tract Infection in Men (DC), Sepsis (GEN) Activity/Diet/Wound Care/Special Instructions: Diet: Cardiac (low fat, low salt) Activity: Limited until follow up -see prescription to have blood work (CBC and BMP) in 3 days Discharge Disposition: HOME WITH HOME HEALTH SERVICES
== END 2016-06-07 14:42 | disposition home or self-care (01) | DRG 871 ==
LOC: EC 16:49 → 4MS4W 18:08 → 6ICU 22:28 → 5MS5E 06-05 15:48
PROVIDERS: ADMIT Hospitalist; ATTEND Hospitalist
DX: A41.9 Sepsis, unspecified organism (principal); G92 Toxic encephalopathy; I21.4 Non-ST elevation (NSTEMI) myocardial infarction; I25.3 Aneurysm of heart; I47.1 Supraventricular tachycardia; N39.0 Urinary tract infection, site not specified; F03.90 Unspecified dementia, unspecified severity, without behavioral disturbance, psychotic disturbance, mood disturbance, and anxiety; G62.9 Polyneuropathy, unspecified; R74.8 Abnormal levels of other serum enzymes; B96.20 Unspecified Escherichia coli [E. coli] as the cause of diseases classified elsewhere; E78.5 Hyperlipidemia, unspecified; H91.90 Unspecified hearing loss, unspecified ear; I10 Essential (primary) hypertension; I35.0 Nonrheumatic aortic (valve) stenosis; N32.81 Overactive bladder; R65.20 Severe sepsis without septic shock; F32.9 Major depressive disorder, single episode, unspecified; R05 Cough; Z87.891 Personal history of nicotine dependence; Z96.653 Presence of artificial knee joint, bilateral; Z79.82 Long term (current) use of aspirin; Z79.899 Other long term (current) drug therapy
CPT/HCPCS: 36415; 70450; 71010; 71020; 80048; 80053; 81001; 82533; 82550; 82553; 83605; 83735; 84100; 84484; 85025; 85027; 85610; 85730; 87040; 87077; 87086; 87186; 87502; 93005; 93306; 94640; 96365; 96367; 99291

== ENCOUNTER 2018-07-11 16:44 | Inpatient (IN) | payer MEDICARE, OTHER ==
[2018-07-11] MEDS ORDERED: HYDROcodone/APAP 7.5-325MG 1 EACH TAB PO ONE (17:53)
--- NOTE | 2018-07-11 18:49 | CT ---
EXAMINATION TYPE: CT brain keven soto DATE OF EXAM: 07/11/2018 COMPARISON: CT brain 06/04/2016 HISTORY: Fall today. Patient denies head injuryHead injury. Fall. . Neck pain CT DLP: 1290.8 mGycm Automated exposure control for dose reduction was used. TECHNIQUE: CT scan of the head and cervical spine are performed without contrast. FINDINGS: There is diffuse cerebral cortical atrophy. There is no mass effect nor midline shift. Th ere is no sign of intracranial hemorrhage. Calvarium is intact. There is multilevel spondylotic changes in the mid and lower cervical spine with hypertrophic anterio r spurring. There is anterior subluxation of C5 in relation to C6 of 5 mm. There is no compression f racture. There is severe narrowing of the C3-4 disc space. There is hypertrophic facet arthropathy. IMPRESSION: Spondylotic changes in the cervical spine. No fracture. Cerebral atrophy. No acute intracranial abnormality. Brain unchanged compared to old exam.
--- NOTE | 2018-07-11 18:58 | XR ---
EXAMINATION TYPE: XR forearm LT DATE OF EXAM: 07/11/2018 COMPARISON: NONE HISTORY: Left wrist pain TECHNIQUE: 2 views FINDINGS: There is impacted transverse fracture of the distal radial metaphysis. 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 The elbow joint appears intact. There is probably an old ulnar styloid process tip fracture. IMPRESSION: Acute impacted distal radius fracture.
--- NOTE | 2018-07-11 18:59 | XR ---
EXAMINATION TYPE: XR humerus LT DATE OF EXAM: 07/11/2018 COMPARISON: NONE HISTORY: Fall. Pain. TECHNIQUE: 2 views FINDINGS: Shoulder joint and elbow joint appear intact. I see no fracture. There is evidence of small metallic foreign body in the proximal forearm. There is spurring at the AC joint. IMPRESSION: No acute abnormality of the left humerus.
--- NOTE | 2018-07-11 19:01 | XR ---
EXAMINATION TYPE: XR Hip Bilateral and AP pelvis DATE OF EXAM: 07/11/2018 COMPARISON: NONE HISTORY: Fall TECHNIQUE: 5 views FINDINGS: AP and oblique views of both hips were obtained. There is a single view of the pelvis. The pelvic ring is intact. The proximal femurs are intact. Hip joint spaces are fairly normal. There is no sign of hip dysplasia. There is multilevel lower lumbar spine fusion surgery. There is no evide nce of hip fracture. There is vascular calcification. IMPRESSION: No acute abnormality of the pelvis.
--- NOTE | 2018-07-11 19:02 | XR ---
EXAMINATION TYPE: XR wrist complete LT DATE OF EXAM: 07/11/2018 COMPARISON: NONE HISTORY: Wrist pain TECHNIQUE: 3 views FINDINGS: There is impacted transverse fracture of the distal radial metaphysis. There is almost 1 cm posterior displacement of the distal fragment. There is no dislocation. IMPRESSION: Impacted distal radius fracture. Old ulnar styloid process tip fracture.
--- NOTE | 2018-07-11 19:03 | XR ---
EXAMINATION TYPE: XR hand complete LT DATE OF EXAM: 07/11/2018 COMPARISON: NONE HISTORY: Fall. Pain. TECHNIQUE: 3 views FINDINGS: Metacarpals are intact. Carpal bones are intact. There is impacted distal radius fracture. There is no dislocation. There are no erosions. IMPRESSION: Distal radius impacted fracture. No fracture of the hand.
--- NOTE | 2018-07-11 19:06 | XR ---
EXAMINATION TYPE: XR chest 2V DATE OF EXAM: 07/11/2018 COMPARISON: 06/05/2016 HISTORY: Fall. Pain. TECHNIQUE: Frontal and lateral views of the chest are obtained. FINDINGS: There is no heart failure. There is a 2.5 cm masslike density in the left upper lobe. Ther e is no pleural effusion. There is no heart failure. IMPRESSION: Left upper lobe mass is quite dense and could be calcifying granuloma and appears more d ense than old exams. Mass is slightly larger. Follow-up recommended. No heart failure.
[2018-07-11] MEDS ORDERED: LIDOCAINE 1% INJ 10MG/ML (20 ML MDV) SQ STA (19:31)
[2018-07-11] MEDS ORDERED: MORPHINE SULFATE 4 MG/ML SYRINGE IM STA (19:31)
[2018-07-11] MEDS ORDERED: KETAMINE 10 MG/ML 20 ML VIAL IV STA (20:38)
[2018-07-11] MEDS ORDERED: LORazepam 2 MG/ML INJ IV STA (20:57)
--- NOTE | 2018-07-11 21:01 | ED ---
General Adult HPI - General Chief complaint: Fall Stated complaint: Fall, arm fracture Time Seen by Provider: 07/11/18 17:28 Source: patient, family Mode of arrival: ambulatory Limitations: physical limitation - Related Data Home Medications Medication Instructions Recorded Confirmed Aspirin EC [Ecotrin Low Dose] 81 mg PO DAILY 05/02/15 06/04/16 Donepezil [Aricept] 20 mg PO DAILY 05/02/15 06/04/16 Gabapentin [Neurontin] 600 mg PO BID 05/02/15 06/04/16 Terazosin [Hytrin] 5 mg PO HS 05/02/15 06/04/16 Ferrous Sulfate [Iron (65 MG 325 mg PO BID 06/04/16 06/04/16 Elemental)] Gabapentin [Neurontin] 300 mg PO HS 06/04/16 06/04/16 Glucosamine/Chondr Downing A Sod [Osteo 1 tab PO DAILY 06/04/16 06/04/16 Bi-Flex Caplet] HYDROcodone/APAP 10-325MG [[place] 1 tab PO QID PRN 06/04/16 06/04/16 10-325] Metoprolol Tartrate [Lopressor] 12.5 mg PO BID 06/04/16 06/04/16 Omeprazole 20 mg PO DAILY 06/04/16 06/04/16 Simvastatin [Zocor] 20 mg PO HS 06/04/16 06/04/16 Previous Rx's Medication Instructions Recorded Ciprofloxacin HCl [Cipro] 500 mg PO Q12HR #14 tablet 06/07/16 amLODIPine [Norvasc] 10 mg PO DAILY #30 tablet 06/07/16 Allergies Allergy/AdvReac Type Severity Reaction Status Date / Time No Known Allergies Allergy Verified 07/11/18 17:08 Review of Systems ROS Statement: Those systems with pertinent positive or pertinent negative responses have been documented in the HPI. ROS Other: All systems not noted in ROS Statement are negative. Past Medical History Past Medical History: Hyperlipidemia, Hypertension Additional Past Medical History / Comment(s): neuropathy History of Any Multi-Drug Resistant Organisms: None Reported Past Surgical History: Back Surgery Additional Past Surgical History / Comment(s): 2 knee repoacements, bilateral cataracts, hernia surgery Past Anesthesia/Blood Transfusion Reactions: No Reported Reaction Past Psychological History: Depression Smoking Status: Former smoker Past Alcohol Use History: None Reported Past Drug Use History: None Reported General Exam Limitations: physical limitation Course Vital Signs 07/11/18 07/11/18 17:05 20:43 Temperature 98.2 F Pulse Rate 57 L 51 L Respiratory 20 16 Rate Blood Pressure 106/70 116/56 O2 Sat by Pulse 98 100 Oximetry Procedures - [place] Protocol (Time Out) Patient Identification (2 identifiers required): Chart, Verbal, Arm Band, Name, Birthdate, Medical Record Number 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
--- NOTE | 2018-07-11 21:01 | ED ---
General Adult HPI <Jackson Valdez - Last Filed: 07/11/18 21:04> - General Source: patient, family, RN notes reviewed, old records reviewed Mode of arrival: ambulatory Limitations: physical limitation <Kong Jaimes - Last Filed: 07/11/18 23:07> - General Chief complaint: Fall Stated complaint: Fall, arm fracture Time Seen by Provider: 07/11/18 17:28 - History of Present Illness Initial comments: 87-year-old male patient passed medical history of hypertension, hearing deficit presents to ED after sustaining a fall. Patient reports that while getting out of the car he stumbled, fell on his left side. Patient reports that he caught himself with his left outstretched arm causing injury. Patient denies any trauma to head or neck, denies any other injury. Patient has not been ambulatory, however denies any pain in his lower extremities. Patient primary complaint is left wrist pain. Patient denies any chest pain, abdominal pain, shortness of breath, nausea vomiting diarrhea. Systemic: Pt denies fatigue, myalgia, fever/chills, rash. Pt denies weakness, night sweats, weight loss. Neuro: Pt denies headache, visual disturbances, syncope or pre-syncope. HEENT: Pt denies ocular discharge or irritation, otalgia, rhinorrhea, pharyngitis or notable lymphadenopathy. Cardiopulmonary: Pt denies chest pain, SOB, heart palpitations, dyspnea on exertion. Abdominal/GI: Pt denies abdominal pain, n/v/d. : Pt denies dysuria, burning w/ urination, frequency/urgency. Denies new onset urinary or bowel incontinence. MSK: Pt denies myalgia, loss of strength or function in extremities. Neuro: Pt denies new onset weakness, paresthesias. (Kong Jaimes) - Related Data Home Medications Medication Instructions Recorded Confirmed Aspirin EC [Ecotrin Low Dose] 81 mg PO DAILY 05/02/15 06/04/16 Donepezil [Aricept] 20 mg PO DAILY 05/02/15 06/04/16 Gabapentin [Neurontin] 600 mg PO BID 05/02/15 06/04/16 Terazosin [Hytrin] 5 mg PO HS 05/02/15 06/04/16 Ferrous Sulfate [Iron (65 MG 325 mg PO BID 06/04/16 06/04/16 Elemental)] Gabapentin [Neurontin] 300 mg PO HS 06/04/16 06/04/16 Glucosamine/Chondr Downing A Sod [Osteo 1 tab PO DAILY 06/04/16 06/04/16 Bi-Flex Caplet] HYDROcodone/APAP 10-325MG [Dodge 1 tab PO QID PRN 06/04/16 06/04/16 10-325] Metoprolol Tartrate [Lopressor] 12.5 mg PO BID 06/04/16 06/04/16 Omeprazole 20 mg PO DAILY 06/04/16 06/04/16 Simvastatin [Zocor] 20 mg PO HS 06/04/16 06/04/16 Previous Rx's Medication Instructions Recorded Ciprofloxacin HCl [Cipro] 500 mg PO Q12HR #14 tablet 06/07/16 amLODIPine [Norvasc] 10 mg PO DAILY #30 tablet 06/07/16 Allergies Allergy/AdvReac Type Severity Reaction Status Date / Time No Known Allergies Allergy Verified 07/11/18 17:08 Review of Systems ROS Other: All systems not noted in ROS Statement are negative. <Jackson Valdez - Last Filed: 07/11/18 21:04> ROS Other: All systems not noted in ROS Statement are negative. <Kong Jaimes - Last Filed: 07/11/18 23:07> ROS Statement: Those systems with pertinent positive or pertinent negative responses have been documented in the HPI. Past Medical History Past Medical History: Hyperlipidemia, Hypertension Additional Past Medical History / Comment(s): neuropathy History of Any Multi-Drug Resistant Organisms: None Reported Past Surgical History: Back Surgery Additional Past Surgical History / Comment(s): 2 knee repoacements, bilateral cataracts, hernia surgery Past Anesthesia/Blood Transfusion Reactions: No Reported Reaction Past Psychological History: Depression Smoking Status: Former smoker Past Alcohol Use History: None Reported Past Drug Use History: None Reported <Kong Jaimes - Last Filed: 07/11/18 23:07> General Exam Limitations: physical limitation <Kong Jaimes - Last Filed: 07/11/18 23:07> - General Exam Comments Initial Comments: Constitutional: NAD, AOX3, Pt has pleasant affect. HEENT: NC/AT, trachea midline, neck supple, no lymphadenopathy. Posterior pharynx non erythematous, without exudates. External ears appear normal, without discharge. Mucous membranes moist. Eyes PERRLA, EOM intact. There is no scleral icterus. No pallor noted. Cardiopulmonary: RRR, no murmurs, rubs or gallops, no JVD noted. Lungs CTAB in anterior and posterior chopra. No peripheral edema. Abdominal exam: Abdomen soft and non-distended. Abdomen non-tender to palpation in all 4 quadrants. Bowel sounds active in LLQ. No hepatosplenomegaly. No ecchymosis Neuro: CN II-XII intact. No nuchal rigidity. No cervical spinal tenderness. MSK: Mild deformity noted in left distal radius. Tender to palpation. Radial pulse +2. Full active ROM of hand. No posterior calf tenderness bilaterally, homans sign negative bilaterally. Posterior tibialis and radial pulse +2 bilaterally. Sensation intact in upper and lower extremities. Full active ROM in upper and lower extremities, 5/5 stregnth. (Kong Jaimes) Course Vital Signs 07/11/18 07/11/18 07/11/18 17:05 20:43 20:47 Temperature 98.2 F Pulse Rate 57 L 51 L 64 Respiratory 20 16 10 L Rate Blood Pressure 106/70 116/56 123/59 O2 Sat by Pulse 98 100 99 Oximetry 07/11/18 07/11/18 07/11/18 20:52 20:57 21:02 Temperature Pulse Rate 55 L 55 L 55 L Respiratory 10 L 14 14 Rate Blood Pressure 111/54 133/63 123/55 O2 Sat by Pulse 97 96 96 Oximetry 07/11/18 22:00 Temperature Pulse Rate 54 L Respiratory 16 Rate Blood Pressure 100/57 O2 Sat by Pulse 95 Oximetry Procedures - Procedural Sedation Procedural Sedation Start Time: 20:47 Procedural Sedation Stop Time: 21:15 Indications: fracture/dislocation reduction ASA Class: II Mallampati Airway Score: 2 Preparation: director of cardiac cath lab applied, pulse oximeter, capnometry used, supplemental O2 applied, suction/airway equipment at bedside Ketamine: IV Ketamine Dose: 80 Complications: none Patient Tolerated Procedure: well <Jackson Valdez - Last Filed: 07/11/18 21:04> - Reeder Protocol (Time Out) Patient Identification (2 identifiers required): Chart, Verbal, Arm Band, Name, Birthdate, Medical Record Number Patient/Legal Director Of Communications has Confirmed: Identity Site: left wrist Site Marked: No Site Verified With Patient/Guardian: Yes Final Confirmation: Procedure <Kong Jaimes - Last Filed: 07/11/18 23:07> Medical Decision Making <Jackson Valdez - Last Filed: 07/11/18 21:04> - Lab Data Result diagrams: 07/11/18 21:42 07/11/18 21:42 <Kong Jaimes - Last Filed: 07/11/18 23:07> - Medical Decision Making 87-year-old male presents status post fall with primary injury left distal radius fracture. This is impacted and angulated. Patient did receive conscious sedation for fracture reduction. Patient is evaluated by myself, resting comfortably, stable vital signs, no other injuries on CT or x-ray. Patient will follow-up with orthopedic surgery. (CourtneyJackson Reyes) 87-year-old male patient passed medical history of hypertension, hearing deficit presents to ED after sustaining a fall. Patient reports that while getting out of the car he stumbled, fell on his left side. Patient reports that he caught himself with his left outstretched arm causing injury. Patient denies any traum a to head or neck, denies any other injury. Patient has not been ambulatory, however denies any pain in his lower extremities. Patient primary complaint is left wrist pain. Patient denies any chest pain, abdominal pain, shortness of breath, nausea vomiting diarrhea. Pt VSS, afebrile. Physical exam displayed: Mild deformity noted in left distal radius. Tender to palpation. Radial pulse +2. Full active ROM of hand. Plain films displayed a left impacted distal radius fracture. Chest x-ray displayed a left upper lobe mass slightly larger than on previous exam. CT brain and cervical spine did not display acute pathology. Patient is fracture was reduced under conscious sedation with attending physician Dr. Bradshaw. Neurovascularly intact after splint placement. Per family request patient to be admitted into observation for pain control and orthopedic consult. Case discussed and patient seen by Dr. Bradshaw. (Kong Jaimes) - Lab Data Lab Results 07/11/18 07/11/18 Range/Units 21:42 21:42 WBC 9.7 (3.8-10.6) k/uL RBC 4.20 L (4.30-5.90) m/uL Hgb 13.1 (13.0-17.5) gm/dL Hct 40.3 (39.0-53.0) % MCV 96.0 (80.0-100.0) fL MCH 31.2 (25.0-35.0) pg MCHC 32.5 (31.0-37.0) g/dL RDW 13.2 (11.5-15.5) % Plt Count 120 L (150-450) k/uL Neutrophils % 78 % Lymphocytes % 15 % Monocytes % 5 % Eosinophils % 1 % Basophils % 0 % Neutrophils # 7.6 (1.3-7.7) k/uL Lymphocytes # 1.4 (1.0-4.8) k/uL Monocytes # 0.5 (0-1.0) k/uL Eosinophils # 0.1 (0-0.7) k/uL Basophils # 0.0 (0-0.2) k/uL Sodium 138 (137-145) mmol/L Potassium 4.8 (3.5-5.1) mmol/L Chloride 106 (98-107) mmol/L Carbon Dioxide 28 (22-30) mmol/L Anion Gap 4 mmol/L BUN 12 (9-20) mg/dL Creatinine 1.05 (0.66-1.25) mg/dL Est GFR (CKD-EPI)AfAm 74 (>60 ml/min/1.73 sqM) Est GFR (CKD-EPI)NonAf 64 (>60 ml/min/1.73 sqM) Glucose 98 (74-99) mg/dL Calcium 8.9 (8.4-10.2) mg/dL Total Bilirubin 0.8 (0.2-1.3) mg/dL AST 41 (17-59) U/L ALT 33 (21-72) U/L Alkaline Phosphatase 58 (38-126) U/L Total Protein 6.1 L (6.3-8.2) g/dL Albumin 3.6 (3.5-5.0) g/dL Disposition <Jackson Valdez - Last Filed: 07/11/18 21:04> Is patient prescribed a controlled substance at d/c from ED?: No <Kong Jaimes - Last Filed: 07/11/18 23:07> Clinical Impression: Fall, Distal radius fracture Disposition: ADMITTED IP TO THIS [facility] Instructions (If sedation given, give patient instructions): Fall Prevention for Older Adults (ED), Moderate Sedation (ED) Referrals: Silver Robert MD [Primary Care Provider] - 1-2 days
--- NOTE | 2018-07-11 21:42 | XR ---
EXAMINATION TYPE: XR wrist limited LT DATE OF EXAM: 07/11/2018 COMPARISON: Today HISTORY: Post reduction TECHNIQUE: 2 views FINDINGS: There is diffuse obtained through the cast. There is impacted transverse fracture distal ra dial metaphysis. There is slight improvement of fragment position compared to initial exam. IMPRESSION: There is improved fragment position compared to initial exam with less displacement.
[2018-07-11] MEDS ORDERED: NALOXONE 0.4 MG/ML 1 ML VIAL IV PRN (21:43)
[2018-07-11 22:09] LABS: Basophils % (A) 0 %; Eosinophils # (A) 0.1 k/uL (0-0.7); Eosinophils % (A) 1 %; HCT 40.3 % (39.0-53.0); HGB 13.1 gm/dL (13.0-17.5); Lymphocytes # (A) 1.4 k/uL (1.0-4.8); Lymphocytes % (A) 15 %; MCH 31.2 pg (25.0-35.0); MCHC 32.5 g/dL (31.0-37.0); Mean Platelet Volume 7.4; Monocytes # (A) 0.5 k/uL (0-1.0); Monocytes % (A) 5 %; Neutrophils # (A) 7.6 k/uL (1.3-7.7); Neutrophils % (A) 78 %; Platelet Count 120 k/uL (150-450); RDW 13.2 % (11.5-15.5); WBC 9.7 k/uL (3.8-10.6)
[2018-07-11 22:17] LABS: Albumin 3.6 g/dL (3.5-5.0); Calcium 8.9 mg/dL (8.4-10.2); Potassium 4.8 mmol/L (3.5-5.1); Total Bilirubin 0.8 mg/dL (0.2-1.3); Total Protein 6.1 g/dL (6.3-8.2)
[2018-07-12 01:42] LABS: Appearance,Urine Clear (Clear); Bilirubin,Urine Negative (Negative); Blood,Urine Negative (Negative); Color,Urine Yellow; Glucose,Urine (UA) Negative (Negative); Hyaline Casts,Urine 1 /lpf (0-2); Ketones,Urine Negative (Negative); Leukocyte Esterase,Urine Moderate (Negative); Mucus,Urine Occasional /hpf; Nitrite,Urine Negative (Negative); PH, Urine 5.5 (5.0-8.0); Protein,Urine 1+ (Negative); RBC,Urine 2 /hpf (0-5); Specific Gravity,Urine 1.029 (1.001-1.035)
[2018-07-12] MEDS: HYDROcodone/APAP 5-325MG 1 EACH TAB PO PRN ×2 (01:48→06:58)
[2018-07-12] MEDS: SODIUM CHLORIDE 0.9% 1,000 ML IV SCH ×2 (01:49→23:15)
--- NOTE | 2018-07-12 08:35 | P.CNOR ---
<Alisa Amaya - Last Filed: 07/12/18 09:17> History of Present Illness - [facility] Consult date: 07/12/18 Consult reason: fracture (Left displaced distal radius fracture) History of present illness: The patient is an 87-year-old male who presented to the emergency department last evening for left wrist pain. According to the ER note, he sustained a fall getting out of a car and fell onto his left side. The patient does have a history of hypertension and hyperlipidemia as well as dementia. The patient is currently confused and unable to tell me how this injury happened. The patient's is currently home and no other family members are at the bedside. The wrist was reduced in the emergency department and placed in a sugar tong splint. Orthopedics was consulted for further evaluation. The patient is currently in the ER holding and waiting for a bed an inpatient unit. Head and neck CT reveals no intracranial bleed or fractures. No other injuries are noted. He is a former smoker. Review of Systems ROS unobtainable: due to mental status Past Medical History Past Medical History: Hyperlipidemia, Hypertension Additional Past Medical History / Comment(s): neuropathy History of Any Multi-Drug Resistant Organisms: None Reported Past Surgical History: Back Surgery Additional Past Surgical History / Comment(s): 2 knee repoacements, bilateral ca taracts, hernia surgery Past Anesthesia/Blood Transfusion Reactions: No Reported Reaction Past Psychological History: Depression Smoking Status: Former smoker Past Alcohol Use History: None Reported Past Drug Use History: None Reported Medications and Allergies Home Medications Medication Instructions Recorded Confirmed Type Donepezil [Aricept] 20 mg PO DAILY 05/02/15 07/12/18 History Gabapentin [Neurontin] 600 mg PO BID 05/02/15 07/12/18 History Terazosin [Hytrin] 5 mg PO HS 05/02/15 07/12/18 History Ferrous Sulfate [Iron (65 MG 325 mg PO BID 06/04/16 07/12/18 History Elemental)] Gabapentin [Neurontin] 300 mg PO HS 06/04/16 07/12/18 History amLODIPine [Norvasc] 10 mg PO DAILY #30 tablet 06/07/16 07/12/18 Rx Cholecalciferol [Vitamin D3] 1,000 unit PO DAILY 07/12/18 07/12/18 History Metoprolol Tartrate [Lopressor] 25 mg PO DAILY 07/12/18 07/12/18 History Simvastatin [Zocor] 20 mg PO HS 07/12/18 07/12/18 History Allergies Allergy/AdvReac Type Severity Reaction Status Date / Time No Known Allergies Allergy Verified 07/12/18 08:29 Physical Examination The patient is an 87-year-old male who is in no acute distress. He is alert and oriented 1. Head is normocephalic atraumatic. No pain upon palpation of the cervical spine and no step-offs noted. Exam of the right upper extremity reveals no obvious deformity or pain upon range of motion. Exam of the left upper extremity reveals a sugar tong splint which is clean, dry, and intact. He is able to wiggle his fingers freely. Neurological and circulatory status is intact. Results - Labs Labs: Abnormal Lab Results - Last 24 Hours (Table) 07/11/18 07/11/18 07/12/18 Range/Units 21:42 21:42 01:30 RBC 4.20 L (4.30-5.90) m/uL Plt Count 120 L (150-450) k/uL Total Protein 6.1 L (6.3-8.2) g/dL Urine Protein 1+ H (Negative) Ur Leukocyte Esterase Moderate H (Negative) Urine Mucus Occasional H (None) /hpf H & H 07/11/18 Range/Units 21:42 Hgb 13.1 (13.0-17.5) gm/dL Hct 40.3 (39.0-53.0) % Result Diagrams: 07/11/18 21:42 07/11/18 21:42 - Diagnostic results Wrist/Hand x-ray: image reviewed (Pre-and postreduction x-rays were reviewed. There is a slight improvement of dorsal tilt with significant shortening of the distal radius on the postreduction x-ray. 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 No other fracture seen.) Assessment and Plan (1) Distal radius fracture Current Visit: Yes Status: Acute Code(s): S52.509A - UNSP FRACTURE OF THE LOWER END OF UNSP RADIUS, INIT SNOMED Code(s): 039339059 (2) Fall Current Visit: Yes Status: Acute Code(s): W19.XXXA - UNSPECIFIED FALL, INITIAL ENCOUNTER SNOMED Code(s): 5420142 Plan: The clinical and x-ray findings were discussed with the patient and the patient's over the telephone by Dr. Quesada. We are recommending a closed reduction with percutaneous pinning vs. open reduction internal fixation of the left wrist this afternoon. The patient will remain nothing by mouth. Continue pain control. Continue sugar tong splint. Ice and elevate left upper extremity. We will continue to follow patient closely and make further recommendations as needed. <Keyshawn Quesada - Last Filed: 07/12/18 17:27> Results - Labs Labs: Abnormal Lab Results - Last 24 Hours (Table) 07/11/18 07/11/18 07/12/18 Range/Units 21:42 21:42 01:30 RBC 4.20 L (4.30-5.90) m/uL Plt Count 120 L (150-450) k/uL Total Protein 6.1 L (6.3-8.2) g/dL Urine Protein 1+ H (Negative) Ur Leukocyte Esterase Moderate H (Negative) Urine Mucus Occasional H (None) /hpf H & H 07/11/18 Range/Units 21:42 Hgb 13.1 (13.0-17.5) gm/dL Hct 40.3 (39.0-53.0) % Result Diagrams: 07/11/18 21:42 07/11/18 21:42 Assessment and Plan Plan: Discussed with MENDOZA Amaya and agree with above. Patient was initially seen and examined by myself as well. He was very confused and unable to provide additional history. O: Splint in place on the left wrist. This was loosened to evaluate the skin. There is only mild edema without blisters or skin disruptions. Appropriate tenderness to palpation. Patient is able to actively move his fingers and thumb without difficulty. The hand is warm, dry and well perfused A: 1. Displaced left distal radius fracture P: I spoke with the patient's and discussed the injury and fracture in detail. With the fracture pattern and amount of displacement, I recommended surgical stabilization. We discussed the relative risks and benefits of closed reduction and percutaneous pinning versus open reduction and internal fixation. She expressed understanding and was in agreement to proceed with surgery. We will keep the patient NPO and plan for surgical stabilization pending surgical clearance. Keyshawn Quesada D.O. [facility]
[2018-07-12 10:39] VITALS: BMI 27.2
[2018-07-12] MEDS ORDERED: HYDROmorphone 0.5 MG/0.5 ML SYRINGE IVP STA (13:55)
[2018-07-12] MEDS ORDERED: IV FLUID CONTINUATION 500 ML IV ONE (17:15)
[2018-07-12] MEDS ORDERED: MIDAZOLAM 2 MG/2 ML VIAL IVP ONE (18:30)
--- NOTE | 2018-07-12 19:28 | P.ONQ ---
Anesthesiology Proc Note - PNB - Peripheral Nerve Block Performed Left Infraclavicular Single Time Out Performed: Yes (1829) Procedure Start Time: 18:30 Procedure Stop Time: 18:35 Indication: Acute Post-Operative Pain, Dx/Pain Location (Left wrist pain), Requested by physician Sedation Type: Sedate with meaningful contact maintained Preparation: Sterile Prep Position: Supine Catheter: None Needle Types: On-Q Needle Size: 50mm (2") Needle Gauge: 21 Technique: Ultrasound Injectate: 0.5% Ropivacaine (see comment for volume) Blood Aspirated: No Pain Paresthesia on Injection Noted: No Resistance on Injection: Normal Events: Uneventful and Well Tolerated
[2018-07-12] MEDS ORDERED: ePHEDrine SULFATE/0.9% NACL/PF 50 MG/5 ML SYRINGE IV ONE (19:40)
[2018-07-12] MEDS ORDERED: ROPIVACAINE 5 MG/ML 30 ML VIAL ONE (19:40)
[2018-07-12] MEDS ORDERED: ceFAZolin 1,000 MG/50 ML BAG (PMX) IVPB ONE (19:40)
[2018-07-12] MEDS ORDERED: MIDAZOLAM 2 MG/2 ML VIAL ONE (19:40)
[2018-07-12] MEDS ORDERED: PROPOFOL 10 MG/ML 20 ML VIAL IV ONE (19:40)
[2018-07-12] MEDS ORDERED: LIDOCAINE 1% INJ 10MG/ML (20 ML MDV) ONE (19:40)
[2018-07-12] MEDS ORDERED: SUCCINYLCHOLINE CHLORIDE 100 MG/5 ML SYR IV ONE (19:40)
[2018-07-12] MEDS ORDERED: LACTATED RINGERS 1,000 ML IV ONE (21:11)
[2018-07-12] MEDS ORDERED: BUPIVACAIN-EPI 0.5%-1:200,000 30 ML VIAL SQ ONE (21:41)
[2018-07-12] MEDS ORDERED: ENOXAPARIN 40 MG/0.4 ML SYRINGE SQ SCH (22:15)
[2018-07-12] MEDS ORDERED: PROMETHAZINE INJ 25 MG/ML 1 ML VIAL IVPB ONE (22:20)
--- NOTE | 2018-07-12 23:17 | HP ---
HISTORY AND PHYSICAL DATE OF ADMISSION: 07/11/2018 DATE OF SERVICE: 07/12/2018. PRESENTING COMPLAINT: Fall. HISTORY OF PRESENTING COMPLAINT: This is a pleasant 87-year-old patient of Dr. Cristian Robert. The patient lives with his . Chronic stable medical conditions include COPD, dementia, GERD, hypertension, hyperlipidemia, peripheral neuropathy, moderate aortic stenosis. The patient apparently was trying to push her as per the nephew at the bedside telling the story and the patient caught his foot and fell down on his outstretched arm resulting in a fracture of the right wrist. I saw the patient this afternoon. The patient is able answer simple questions. Denies any shortness of breath. Otherwise, is able normally to get about. I okayed the patient to proceed for surgery. No known coronary artery disease. The patient had pain in the left foot and a splint was put in the ER. Range of motion is limited. Patient having significant pain at the site when I saw this patient earlier today. REVIEW OF SYSTEMS: CONSTITUTIONAL: None. HEENT: Decreased hearing. RESPIRATORY: None. CARDIOVASCULAR: None. GENITOURINARY none. GENITOURINARY: None. MUSCULOSKELETAL: Pain as above. DERMATOLOGICAL, HEMATOLOGIC, LYMPHATIC: None. PSYCHIATRY: Forgetful. NEUROLOGICAL: Does use a cane. PAST MEDICAL HISTORY: COPD, stroke, dementia, GERD, hard of hearing, hyperlipidemia, hypertension, peripheral neuropathy, moderate aortic stenosis, stroke many years ago with no residue, past skull fracture of the forehead. PAST SURGICAL HISTORY: Appendectomy, back surgery, hernia repair, joint replacement, bilateral knee arthroplasty, back surgery with pins and rods, bilateral cataract, bilateral inguinal hernia repair. PSYCH HISTORY: Depression. SOCIAL HISTORY: . Uses a cane sometimes. The patient has smoked for 50 years, stopped in 2000. FAMILY HISTORY: Neurological disorders. HOME MEDICATIONS: 1. Norvasc 10 mg p.o. daily. 2. Hytrin 5 mg q.h.s. 3. Zocor 20 mg q.h.s. 4. Lopressor 25 mg p.o. daily. 5. Neurontin 300 mg q.h.s. 600 mg p.o. b.i.d. 6. Iron 325 p.o. b.i.d. 7. Aricept 20 mg p.o. daily. 8. Vitamin D3 1000 units p.o. daily. ALLERGIES: None. PHYSICAL EXAMINATION: VITAL SIGNS: Temperature 98, pulse 94, respiratory rate 14, blood pressure 130/56, pulse ox 98%. GENERAL APPEARANCE: Average build, lying in bed, somewhat uncomfortable. EYES: Pupils equal. Conjunctivae normal. HEENT: External appearance of nose and ears normal. Oral cavity a bit dry. NECK: JVD not raised. Mass not palpable. RESPIRATORY: Effort normal. LUNGS: Diminished breath sounds. CARDIOVASCULAR: 1st and 2nd heart sounds normal. No edema. ABDOMEN: Soft, nontender. Liver and spleen not palpable. LYMPHATICS: No lymph nodes palpable in the neck and axilla. PSYCHIATRY: Patient is able answer simple questions. Does not know the year or the month or exactly where he is. MUSCULOSKELETAL: Holding his left wrist which has got a splint, this was prior to surgery. INVESTIGATIONS: White count 9.7, hemoglobin 13.1 potassium 4.8. Wrist x-ray impacted distal radius fracture. Chest x-ray, left upper lobe mass, quite dense, could be calcifying granuloma. ASSESSMENT: 1. Mechanical fall due to patient tripping resulting in a left radius distal fracture. The patient is medically stable to proceed for surgery. 2. Upper lung mass need to keep malignancy in the differential. 3. Chronic obstructive pulmonary disease in an ex-smoker. 4. Alzheimer's dementia with major cognitive impairment. 5. Gastroesophageal reflux disease. 6. Hard of hearing. 7. Essential hypertension. 8. Hyperlipidemia. 9. Peripheral neuropathy idiopathic. 10.Moderate aortic stenosis. PLAN: Home medications will be resumed. We will give Lovenox for DVT prophylaxis. The patient is going for surgery this afternoon. Orthopedics is ordering pain medications. Care was discussed with the family at the bedside. Copy to Dr. Robert. MMODL / IJN: [id number] /
[2018-07-12] MEDS: METOPROLOL TARTRATE 25 MG TAB PO SCH (23:50)
[2018-07-12] MEDS: GABAPENTIN 300 MG CAP PO SCH (23:51)
[2018-07-12] MEDS: ceFAZolin IN SWFI 2 GM/20 ML SYRINGE IVP SCH (23:51)
[2018-07-12] MEDS: DOXAZOSIN 4 MG TAB PO SCH (23:51)
[2018-07-13] MEDS: HYDROcodone/APAP 5-325MG 1 EACH TAB PO PRN ×2 (02:21→07:19)
[2018-07-13] MEDS: HYDROmorphone 0.5 MG/0.5 ML SYRINGE IVP PRN (04:35)
[2018-07-13] MEDS: ceFAZolin IN SWFI 2 GM/20 ML SYRINGE IVP SCH (10:02)
[2018-07-13] MEDS: METOPROLOL TARTRATE 25 MG TAB PO SCH ×2 (10:05→21:36)
[2018-07-13] MEDS: amLODIPine 10 MG TAB PO SCH (10:05)
[2018-07-13] MEDS: DONEPEZIL 10 MG TAB PO SCH (10:06)
[2018-07-13] MEDS: GABAPENTIN 300 MG CAP PO SCH ×4 (10:06→21:43)
--- NOTE | 2018-07-13 10:44 | P.PN ---
Subjective Progress Note Date: 07/13/18 Principal diagnosis: Left distal radius fracture Patient is seen at bedside this morning. He is postop day #1 from ORIF left distal radius fracture. He has pain at the surgical site as expected. He does not communicate verbally otherwise and ROS is unobtainable Objective - Vital Signs Vital signs: Vital Signs Temp 97.8 F 07/13/18 07:30 Pulse 111 H 07/13/18 07:30 Resp 18 07/13/18 07:32 BP 137/84 07/13/18 07:30 Pulse Ox 98 07/13/18 07:30 Intake & Output 07/12/18 07/13/18 07/13/18 18:59 06:59 18:59 Intake Total 550 Output Total 150 50 150 Balance -150 500 -150 Intake: IV 550 Output: Urine 150 150 Estimated Blood Loss 50 Other: Voiding Method Diaper Diaper Incontinent Incontinent # Voids 1 1 - Exam Inspection reveals a benign surgical wound. There is no active bleeding or drainage. Neurovascular status is intact throughout the upper extremity with motor and sensation grossly intact. Calves are soft and nontender. 2+ radial pulse and less than 2 second cap refill is present. - Constitutional General appearance: Present: no acute distress - Labs CBC & Chem 7: 07/11/18 21:42 07/11/18 21:42 Assessment and Plan (1) Distal radius fracture Narrative/Plan: He will continue with routine postop orthopedic protocol including pain management, wound care, PT, DVT prophylaxis and medical management. Expect that he will D/C in next 1-2 days Current Visit: Yes Status: Acute Priority: Medium Code(s): S52.509A - UNSP FRACTURE OF THE LOWER END OF UNSP RADIUS, INIT SNOMED Code(s): 425916849 Time with Patient: Less than 30
[2018-07-13] MEDS: oxyCODONE-APAP 5-325MG 1 EACH TAB PO PRN (14:09)
--- NOTE | 2018-07-13 14:47 | P.PN ---
Subjective Progress Note Date: 07/13/18 The patient was seen and examined. Still confused with minimal verbal actions. Patient does not appear anxious or agitated. Discussed with RN - patient has been excitable, noncompliant and, at times, aggressive with the staff. He's been attempting to pull off the splint and refuses to accept help with transfers. He has received both [place] and Dilaudid but still shows signs of pain. Objective - Vital Signs Vital signs: Vital Signs Temp 97.8 F 07/13/18 07:30 Pulse 111 H 07/13/18 07:30 Resp 18 07/13/18 07:32 BP 137/84 07/13/18 07:30 Pulse Ox 98 07/13/18 07:30 Intake & Output 07/12/18 07/13/18 07/13/18 18:59 06:59 18:59 Intake Total 550 Output Total 150 50 150 Balance -150 500 -150 Intake: IV 550 Output: Urine 150 150 Estimated Blood Loss 50 Other: Voiding Method Diaper Diaper Incontinent Incontinent # Voids 1 1 - Exam Patient is lying supine in bed. Appears comfortable and not agitated when undisturbed but easily excitable. He tolerates the exam shows pain and apprehension when approaching the left hand. Splint in place Omar wrap is unraveled at the edges from patient trying to remove it. Mild digital edema without erythema or ecchymosis. Appropriate pain with passive digital extension. - Labs CBC & Chem 7: 07/11/18 21:42 07/11/18 21:42 Assessment and Plan Assessment: 1. POD #1 status post open reduction and internal fixation of comminuted left distal radius fracture 2. Dementia +/- postop delirium Plan: Continue pain management on a PRN basis only. May use acetaminophen, alternat ing with ibuprofen or naproxen every 4 hours. If this does not provide adequate pain control, recommend using one opioid agent. Recommended a trial of Percocet see if this causes less confusion. Keep the splint in place. Apply ice if the patient will permitted. It is not necessary to try to restrict his use of the hand. If his baseline is anywere close to his present cognitive status, he will likely require interim rehab placement. We will continue to follow him while inpatient. Keyshawn Quesada D.O. [facility]
--- NOTE | 2018-07-13 16:02 | P.OP ---
Date of Procedure: 07/12/18 Preoperative Diagnosis: Displaced, left distal radius fracture Postoperative Diagnosis: Displaced, left distal radius fracture Procedure(s) Performed: Open reduction and internal fixation of comminuted, intra-articular left distal radius fracture Implants: Acumed Acu-Loc 2 locking volar distal radius plate, standard left Anesthesia: [facility] Surgeon: Keyshawn Quesada Estimated Blood Loss (ml): 20 Pathology: none sent Condition: stable Disposition: PACU Indications for Procedure: The patient is an 87 year-old male who fell and sustained an injury to left wrist, resulting in a displaced distal radius fracture. Based on the fracture pattern and amount of displacement, surgical treatment was recommended. Risks and benefits were discussed with the patient's (due to advanced dementia) and reviewed in preop. Questions were invited and answered. She expressed understanding and wished to proceed with surgery. Consents forms were signed. The operative site was confirmed and marked. Description of Procedure: The patient was administered a regional nerve block by the anesthesia team then brought to the operating suite. The patient was positioned supine with the operative limb on an arm board. All bony prominences were well padded. Anesthesia was administered uneventfully. Prophylactic IV antibiotics were administered. A tourniquet was placed on the operative arm which was then prepped and draped in standard, sterile fashion. A timeout was performed which confirmed the patient, the operative side, the site and the procedure to be performed. All team members expressed agreement. The limb was exsanguinated with an Esmarch and the tourniquet was inflated. A standard volar FCR approach was utilized. The skin was incised sharply and the subcutaneous tissue were spread, coagulating superficial vessels as needed. The FCR sheath was incised and the tendon was mobilized. Blunt dissection proceeded down to the pronator quadratus. A small rent was noted in the muscle belly. The pronator was sharply released along its radial border and & elevated ulnarly. The fracture site was identified, running transversely with some comminution of the proximal volar metaphysis. The fracture line extended intra-articularly into the sigmoid notch. There was marked dorsal angulation and significant loss of radial height. A [place] elevator was used to gently open and disimpact the fracture. A manual reduction was performed using axial traction, palmar translation and ulnar deviation. A 0.062 K wire was inserted percutaneously into the radial styloid and advanced across the metaphysis for provisional reduction. This did not afford adequate control of the fracture due to the metaphyseal comminution and the patient's poor bone quality. A second K wire was inserted in similar fashion. Imaging showed improved but not optimal reduction. The plate was selected, based on the patients anatomy and fracture pattern, and was positioned on the volar radius. It was provisionally pinned in place with K- wires and its position was confirmed on imaging. A cortical screw was drilled, measured and inserted into the oblong hole of the shaft. Using the plate as a reduction tool, improved volar tilt was achieved but residual shortening remained. The shaft screw was removed. The plate was secured to the distal articular fragment and pinned in place. Its position was confirmed on imaging. Two locking screws were drilled measured and inserted. The percutaneous K wires were backed out. Again using the plate as a reduction tool, the fracture was re-reduced and improved radial height and inclination was achieved. The plate was pinned to the metaphysis in this position. Three cortical screws were drilled and inserted into the shaft. The remaining distal locking screws were drilled, measured and inserted, checking length and alignment with intraoperative imaging. The provisional K-wires were removed. Final x-rays were obtained which revealed satisfactory reduction of the fracture. A 20-degree inclined lateral view was obtained to confirm extra-articular screw placement. The wrist was then ranged under live fluoroscopy - no motion of the fracture fragments or fixation construct was appreciated. The tourniquet was released and hemostasis was obtained with pressure and electrocautery. There was no active arterial bleeding but persistent oozing was seen at the fracture site due to the metaphyseal comminution. The wound was thoroughly irrigated with normal saline. The pronator was of poor quality and consistency and was not repaired. The subcutaneous tissues were reapproximated w ith interrupted 3-0 Vicryl suture. The incision was closed with interrupted 4-0 nylon suture. Marcaine with epinephrine was injected into the perioperative subcutaneous tissues for adjunctive postoperative pain control and hemostasis. A sterile dressing was applied followed by a resting volar splint. All sponge, needle and instrument counts were correct at the end of the case. The patient tolerated the procedure well and was taken to the recovery room in stable condition.
--- NOTE | 2018-07-13 16:11 | P.CNPUL ---
History of Present Illness Consult date: 07/13/18 Requesting physician: Maxwell Rachel Reason for consult: abnormal CXR/CT (Left upper lobe mass) Chief complaint: Status post fall with a primary injury left distal radius fracture History of present illness: This is an 87-year-old gentleman who follows with Dr. Robert as his primary care physician. He has a history of Alzheimer's dementia with major cognitive impairment, GERD, hearing disorder, hypertension, hyperlipidemia, peripheral neuropathy idiopathic, moderate aortic stenosis, chronic obstructive pulmonary disease with previous smoking history. He presented here to the emergency room yesterday after a mechanical fall due to tripping and was found to have a left radius distal fracture. He did undergo an ORIF of the left distal radius fracture. Postoperative day #1. During his initial evaluation a chest x-ray revealed a left upper lobe mass and we are consulted for the same. He is seen today on the regular medical floor. He is quite altered. He is moving all fours was attempting to get out of bed. A site safety manager is at the bedside. He is maintaining O2 saturations in the upper 90s on room air. He's been afebrile. Hemodynamically stable. White count 9.7. Hemoglobin 13.1. Creatinine 1.05. No information is able to be obtained from the patient. He is refusing all oral intake. He is receiving IV Dilaudid for pain control. Review of Systems ROS unobtainable: due to mental status Past Medical History Past Medical History: COPD, CVA/TIA, Dementia, GERD/Reflux, Hearing Disorder / Deafness, Hyperlipidemia, Hypertension Additional Past Medical History / Comment(s): Peripheral neuropathy in bilateral legs, past severe sepsis d/t UTI/encephalopathy/SVT d/t sepsis, moderate aortic stenosis, CVA years ago without residual, sinus problems, [place] bilaterally, falls, past skull fracture-forehead. History of Any Multi-Drug Resistant Organisms: None Reported Past Surgical History: Appendectomy, Back Surgery, Hernia Repair, Joint Replacement Additional Past Surgical History / Comment(s): L/R total knee arthroplasties, back surgery with pins/rods, bilateral cataract removals/lens implants, bilateral inguinal hernia repairs, colonoscopy Past Anesthesia/Blood Transfusion Reactions: No Reported Reaction Smoking Status: Former smoker - Past Family History Father Additional Family Medical History / Comment(s): Father had hardening of the arteries. He at the age of 90.5 in a MVA. Mother Family Medical History: Neurologic Disorder Additional Family Medical History / Comment(s): Parkinsons Medications and Allergies Home Medications Medication Instructions Recorded Confirmed Type Donepezil [Aricept] 20 mg PO DAILY 05/02/15 07/12/18 History Gabapentin [Neurontin] 600 mg PO BID 05/02/15 07/12/18 History Terazosin [Hytrin] 5 mg PO HS 05/02/15 07/12/18 History Ferrous Sulfate [Iron (65 MG 325 mg PO BID 06/04/16 07/12/18 History Elemental)] Gabapentin [Neurontin] 300 mg PO HS 06/04/16 07/12/18 History amLODIPine [Norvasc] 10 mg PO DAILY #30 tablet 06/07/16 07/12/18 Rx Cholecalciferol [Vitamin D3] 1,000 unit PO DAILY 07/12/18 07/12/18 History Metoprolol Tartrate [Lopressor] 25 mg PO DAILY 07/12/18 07/12/18 History Simvastatin [Zocor] 20 mg PO HS 07/12/18 07/12/18 History Allergies Allergy/AdvReac Type Severity Reaction Status Date / Time No Known Allergies Allergy Verified 07/12/18 17:25 Physical Exam Vitals: Vital Signs Temp Pulse Resp BP Pulse Ox 07/13/18 07:32 18 07/13/18 07:30 97.8 F 111 H 18 137/84 98 07/13/18 00:24 90 139/64 100 07/13/18 00:08 91 142/84 97 07/12/18 23:53 82 136/81 95 07/12/18 23:38 77 147/82 98 07/12/18 23:23 77 149/83 98 07/12/18 23:08 80 156/94 97 07/12/18 22:52 97.0 F L 91 18 138/47 97 07/12/18 22:40 76 16 94 L 07/12/18 22:30 81 16 158/76 94 L 07/12/18 22:14 98.0 F 76 16 167/75 100 07/12/18 17:31 99.4 F 87 16 143/81 93 L 07/12/18 16:04 98.5 F 77 18 122/66 90 L Intake and Output 04/13/19 04/13/19 04/13/19 06:59 14:59 22:59 Output Total 150 Balance -150 Output: Urine 150 Other: Voiding Method Diaper Diaper Diaper Incontinent Incontinent Incontinent # Voids 1 3 3 GENERAL EXAM: Disoriented, uncooperative 87-year-old gentleman. On room air. HEAD: Normocephalic. EYES: Normal reaction of pupils, equal size. NOSE: Clear with pink turbinates. THROAT: No erythema or exudates. NECK: No masses, no JVD. CHEST: No chest wall deformity. LUNGS: Equal air entry with no crackles, wheeze, rhonchi or dullness. CVS: S1 and S2 normal with no audible murmur, regular rhythm. ABDOMEN: No hepatosplenomegaly, normal bowel sounds, no guarding or rigidity. SPINE: No scoliosis or deformity SKIN: No rashes CENTRAL NERVOUS SYSTEM: Altered mental status secondary to Alzheimer's dementia tone is normal in all 4 extremities. EXTREMITIES: Cast to the left upper extremity. There is no peripheral edema. No clubbing, no cyanosis. Peripheral pulses are intact. Results - Laboratory Findings CBC and BMP: 07/11/18 21:42 07/11/18 21:42 Abnormal lab findings: Abnormal Labs 07/11/18 07/11/18 07/12/18 21:42 21:42 01:30 RBC 4.20 L Plt Count 120 L Total Protein 6.1 L Urine Protein 1+ H Ur Leukocyte Esterase Moderate H Urine Mucus Occasional H - Diagnostic Findings Chest x-ray: image reviewed (Left upper lobe mass) Assessment and Plan Assessment: Impression: #1 Status post fall with fracture to the left distal radius fracture, status post ORIF postoperative day #1. #2 Left upper lobe mass noted on x-ray could be calcifying granuloma slightly larger compared to previous. #3 Alzheimer's dementia. #4 Hypertension. #5 Hyperlipidemia. #6 Peripheral neuropathy. #7 History of CVA. #8 Moderate aortic stenosis. #9 Gastroesophageal reflux disease. #10 Chronic obstructive pulmonary disease with previous smoking history, currently inactive and stable. #11 Poor overall functional performance based on the above-mentioned multiple comorbidities. Plan: The patient was seen and evaluated by Dr. James. Chest x-ray was reviewed. There is a left upper lobe mass palpable possible granuloma. However the patient's altered mental status and uncooperativeness would not allow for a CAT scan or any further intervention. We'll see the patient on as-needed basis. I, the cosigning physician, performed a history & physical examination of the patient. Lungs sounds are clear. Maintaining good O2 saturations in the 90s on room air. I discussed the assessment and plan of care with my nurse practi fredrick, Laurita Fernández. I attest to the above note as dictated by her. Time with Patient: Greater than 30
[2018-07-13] MEDS: LORazepam 2 MG/ML INJ IV PRN ×2 (17:04→23:00)
[2018-07-13] MEDS: ATORVASTATIN 10 MG TAB PO SCH (21:36)
[2018-07-13] MEDS: DOXAZOSIN 4 MG TAB PO SCH (21:36)
[2018-07-13] MEDS: SODIUM CHLORIDE 0.9% 1,000 ML IV SCH (22:00)
[2018-07-14] MEDS: HYDROmorphone 0.5 MG/0.5 ML SYRINGE IVP PRN ×2 (00:21→04:47)
[2018-07-14] MEDS: LORazepam 2 MG/ML INJ IV PRN (07:36)
[2018-07-14 07:57] LABS: Basophils % (A) 0 %; Eosinophils # (A) 0.1 k/uL (0-0.7); Eosinophils % (A) 1 %; HCT 36.6 % (39.0-53.0); HGB 11.9 gm/dL (13.0-17.5); Lymphocytes # (A) 1.8 k/uL (1.0-4.8); Lymphocytes % (A) 19 %; MCH 30.9 pg (25.0-35.0); MCHC 32.6 g/dL (31.0-37.0); MCV 94.7 fL (80.0-100.0); Mean Platelet Volume 7.6; Monocytes # (A) 0.8 k/uL (0-1.0); Monocytes % (A) 8 %; Neutrophils # (A) 6.6 k/uL (1.3-7.7); Neutrophils % (A) 70 %; Platelet Count 106 k/uL (150-450); RBC 3.87 m/uL (4.30-5.90); RDW 13.2 % (11.5-15.5); WBC 9.4 k/uL (3.8-10.6)
[2018-07-14 08:09] LABS: Calcium 8.9 mg/dL (8.4-10.2); Potassium 3.8 mmol/L (3.5-5.1)
[2018-07-14] MEDS: oxyCODONE-APAP 5-325MG 1 EACH TAB PO PRN (10:25)
[2018-07-14] MEDS: GABAPENTIN 300 MG CAP PO SCH ×3 (10:26→21:13)
[2018-07-14] MEDS: amLODIPine 10 MG TAB PO SCH (10:27)
[2018-07-14] MEDS: METOPROLOL TARTRATE 25 MG TAB PO SCH ×2 (10:27→21:13)
[2018-07-14] MEDS: DONEPEZIL 10 MG TAB PO SCH (10:27)
--- NOTE | 2018-07-14 10:53 | P.PN ---
<Be Hernandez - Last Filed: 07/14/18 10:48> Subjective Progress Note Date: 07/14/18 Principal diagnosis: Left distal radius fracture Patient is seen at bedside this morning. He is postop day #2 from ORIF left distal radius fracture. He has pain at the surgical site as expected with movement of the hand. He does not communicate verbally and ROS is unobtainable Objective - Vital Signs Vital signs: Vital Signs Temp 98.6 F 07/14/18 01:40 Pulse 86 07/14/18 08:24 Resp 16 07/14/18 08:24 BP 159/74 07/14/18 08:24 Pulse Ox 93 L 07/14/18 08:24 Intake & Output 07/13/18 07/14/18 07/14/18 18:59 06:59 18:59 Output Total 150 Balance -150 Output: Urine 150 Other: Voiding Method Diaper Diaper Incontinent Incontinent # Voids 3 1 - Exam Inspection reveals a benign surgical wound. There is no active bleeding or drainage through bandage. Splint in place. . Neurovascular status throughout the upper extremity with motor and sensation is grossly intact as he demonstrates movement of the fingers and pain with PROM of digits. Calves are soft and nontender. 2+ radial pulse and less than 2 second cap refill is present. - Constitutional General appearance: Present: no acute distress - Labs CBC & Chem 7: 07/14/18 07:22 07/14/18 07:22 Labs: Abnormal Lab Results - Last 24 Hours (Table) 07/14/18 07/14/18 Range/Units 07:22 07:22 RBC 3.87 L (4.30-5.90) m/uL Hgb 11.9 L (13.0-17.5) gm/dL Hct 36.6 L (39.0-53.0) % Plt Count 106 L (150-450) k/uL Glucose 108 H (74-99) mg/dL Assessment and Plan (1) Distal radius fracture Narrative/Plan: He will continue with routine postop orthopedic protocol including splint, pain management, wound care, PT, DVT prophylaxis and medical management. Will Continue to follow and will likely need placement pending primary team recommendations. Current Visit: Yes Status: Acute Priority: Medium Code(s): S52.509A - UNSP FRACTURE OF THE LOWER END OF UNSP RADIUS, INIT SNOMED Code(s): 297638133 Time with Patient: Less than 30 <Keyshawn Quesada - Last Filed: 07/16/18 14:19> Objective - Vital Signs Vital signs: Vital Signs Temp 98.8 F 07/16/18 07:49 Pulse 86 07/16/18 07:49 Resp 18 07/16/18 07:49 BP 132/77 07/16/18 07:49 Pulse Ox 95 07/16/18 07:49 Intake & Output 07/15/18 07/16/18 07/16/18 18:59 06:59 18:59 Intake Total 1036 900 Balance 1036 900 Weight 86.183 kg Intake: Oral 1036 900 Other: Voiding Method Urinal Urinal Urinal Diaper Diaper Diaper Incontinent Incontinent Incontinent # Voids 3 2 - Labs CBC & Chem 7: 07/14/18 07:22 07/14/18 07:22 Assessment and Plan Plan: Patient was subsequently seen and examined by myself as well. Patient still confused and unable to offer appropriate verbal response to questioning Splint in place (but outer macarena disheveled). Trace digital edema. No erythema. Plan as outlined above. Keyshawn Quesada D.O. [facility]
--- NOTE | 2018-07-14 14:51 | P.PN ---
Subjective Progress Note Date: 07/14/18 On today's evaluation the patient is being seen for a follow-up. The patient is postop day #2 following his left distal radius ORIF. He is the medial. He has underlying dementia. He does not communicate verbally. Less agitated compared to yesterday. He was given Ativan for agitation 0.5 mg every 6 hours. He is also on Aricept. Objective - Vital Signs Vital signs: Vital Signs Temp 98.6 F 07/14/18 01:40 Pulse 86 07/14/18 08:24 Resp 16 07/14/18 08:24 BP 159/74 07/14/18 08:24 Pulse Ox 93 L 07/14/18 08:24 Intake & Output 07/13/18 07/14/18 07/14/18 18:59 06:59 18:59 Output Total 150 Balance -150 Output: Urine 150 Other: Voiding Method Diaper Diaper Incontinent Incontinent # Voids 3 1 1 - Exam GENERAL EXAM: Disoriented, uncooperative 87-year-old gentleman. On room air. HEAD: Normocephalic. EYES: Normal reaction of pupils, equal size. NOSE: Clear with pink turbinates. THROAT: No erythema or exudates. NECK: No masses, no JVD. CHEST: No chest wall deformity. LUNGS: Equal air entry with no crackles, wheeze, rhonchi or dullness. CVS: S1 and S2 normal with no audible murmur, regular rhythm. ABDOMEN: No hepatosplenomegaly, normal bowel sounds, no guarding or rigidity. SPINE: No scoliosis or deformity SKIN: No rashes CENTRAL NERVOUS SYSTEM: Altered mental status secondary to Alzheimer's dementia tone is normal in all 4 extremities. EXTREMITIES: Cast to the left upper extremity. There is no peripheral edema. No clubbing, no cyanosis. Peripheral pulses are intact. The left upper extremity wound is dry clean and intact. There is no active bleeding or drainage through bandage. Splint in place. . Neurovascular status throughout the upper extremity with motor and sensation is grossly intact as he demonstrates movement of the fingers and pain with PROM of digits. Calves are soft and nontender. 2+ radial pulse and less than 2 second cap refill is present. - Labs CBC & Chem 7: 07/14/18 07:22 07/14/18 07:22 Labs: Abnormal Lab Results - Last 24 Hours (Table) 07/14/18 07/14/18 Range/Units 07:22 07:22 RBC 3.87 L (4.30-5.90) m/uL Hgb 11.9 L (13.0-17.5) gm/dL Hct 36.6 L (39.0-53.0) % Plt Count 106 L (150-450) k/uL Glucose 108 H (74-99) mg/dL Assessment and Plan Plan: #1 Status post fall with fracture to the left distal radius fracture, status post ORIF postoperative day #2 #2 Left upper lobe mass , malignancy is a consideration #3 Alzheimer's dementia. #4 Hypertension. #5 Hyperlipidemia. #6 Peripheral neuropathy. #7 History of CVA. #8 Moderate aortic stenosis. #9 Gastroesophageal reflux disease. #10 Chronic obstructive pulmonary disease with previous smoking history, currently inactive and stable. #11 Poor overall functional performance based on the above-mentioned multiple comorbidities. Plan The patient is delirious. Significant dementia. Medically and defer any further imaging or workup regarding the left upper lobe mass. This can be revisited at a later stage of his condition improves. Contact us back if there is improvement in his overall neurologic status and weakness in this patient in outpatient basis regarding the left upper lobe mass. We'll sign off the case.
--- NOTE | 2018-07-14 15:20 | P.PN ---
Subjective Progress Note Date: 07/13/18 Principal diagnosis: Status post fall with left distal radius fracture Covering for Dr. Rachel over the weekend Mr. Ambrosio is an 87-year-old male with history of falls and most dementia with major cognitive impairment, GERD, hypertension admitted to the emergency after having a fall due to tripping at home. He was found to have left radius distal fracture and he underwent open reduction and internal fixation. As a part of preop evaluation he had a chest x-ray showing left upper lobe mass suspicious for malignancy. Today the patient is in the bed appears to be confused. Patient's and family members at the bedside. As per the nursing staff report patient has been confused since morning and refusing to eat or drink. He would not let anybody touch him. Patient keeps moaning and pulling his bed sheets. He appears to be very confused. Review of systems -could not be done as the patient is confused Patient's medications and labs have been reviewed. Active Medications Amlodipine Besylate (Norvasc) 10 mg PO DAILY [facility] Last Admin: 07/13/18 10:05 Dose: Not Given Documented by: Atorvastatin Calcium (Lipitor) 10 mg PO [facility] Donepezil HCl (Aricept) 20 mg PO DAILY [facility] Last Admin: 07/13/18 10:06 Dose: Not Given Documented by: Doxazosin Mesylate (Cardura) 4 mg PO HS [facility] Last Admin: 07/12/18 23:51 Dose: Not Given Documented by: Gabapentin (Neurontin) 300 mg PO HS [facility] Last Admin: 07/12/18 23:51 Dose: Not Given Documented by: Gabapentin (Neurontin) 600 mg PO BID [facility] Last Admin: 07/13/18 10:06 Dose: Not Given Documented by: Hydromorphone HCl (Dilaudid) 0.25 mg IVP Q3HR PRN PRN Reason: Pain Scale 7 to 10 Last Admin: 07/13/18 04:35 Dose: 0.25 mg Documented by: Sodium Chloride (Saline 0.9%) 1,000 mls @ 20 mls/hr IV .Q24H [facility] Last Admin: 07/12/18 23:15 Dose: Not Given Documented by: Lorazepam (Ativan) 0.5 mg IV Q6HR PRN PRN Reason: Anxiety Last Admin: 07/13/18 17:04 Dose: 0.5 mg Documented by: Metoprolol Tartrate (Lopressor) 12.5 mg PO BID [facility] Last Admin: 07/13/18 10:05 Dose: Not Given Documented by: Naloxone HCl (Narcan) 0.2 mg IV Q2M PRN PRN Reason: Opioid Reversal Oxycodone/Acetaminophen (Percocet 5-325) 1 each PO Q6HR PRN PRN Reason: Pain Last Admin: 07/13/18 14:09 Dose: 0.5 each Documented by: Objective - Vital Signs Vital signs: Vital Signs Temp 97.8 F 07/13/18 07:30 Pulse 92 07/13/18 15:59 Resp 18 07/13/18 15:59 BP 145/68 07/13/18 15:59 Pulse Ox 92 L 07/13/18 15:59 Intake & Output 07/12/18 07/13/18 07/13/18 18:59 06:59 18:59 Intake Total 550 Output Total 150 50 150 Balance -150 500 -150 Intake: IV 550 Output: Urine 150 150 Estimated Blood Loss 50 Other: Voiding Method Diaper Diaper Incontinent Incontinent # Voids 1 3 - Exam Physical exam. Gen. examination - patient appears to be very confused, keeps pushing away while trying to examine him Head - normocephalic Eyes- pupils round and reactive to light ENT- : Mucosa is moist Neck -no palpable masses Respiratory -bilateral breath sounds are positive. No wheezes or crackles. Cardiovascular- S1-S2 heard Abdomen -soft nontender. Normal breath sounds Extremities- no edema in bilateral lower extremities. left upper extremity is in a cast. Neurological - patient does very confused. He is able to move all extremities. - Labs CBC & Chem 7: 07/11/18 21:42 07/11/18 21:42 Assessment and Plan Assessment: ASSESSMENT Fracture of the left distal radius after a mechanical fall - status post ORIF postop day 1 Acute delirium - most likely due to post anesthesia effect Left upper lobe mass on the chest x-ray Alzheimer's dementia Hypertension Hyperlipidemia History of CVA Moderate aortic stenosis GERD PLAN: Patient has postop delirium currently. We'll continue with pain management - on Percocet currently. Will have a sitter at the bedside for better orientation. Will repeat labs for tomorrow morning. The treatment plan was discussed in detail with the nursing staff and the patient's family members at the bedside. Further recommendations to follow depending on the progress of the patient.
[2018-07-14] MEDS: DOXAZOSIN 4 MG TAB PO SCH (21:12)
[2018-07-14] MEDS: ATORVASTATIN 10 MG TAB PO SCH (21:13)
[2018-07-14] MEDS: SODIUM CHLORIDE 0.9% 1,000 ML IV SCH (21:14)
--- NOTE | 2018-07-14 22:35 | P.PN ---
Subjective Progress Note Date: 07/14/18 Principal diagnosis: Status post fall with left distal radius fracture Covering for Dr. Rachel over the weekend Mr. Ambrosio is an 87-year-old male with history of falls and most dementia with major cognitive impairment, GERD, hypertension admitted to the emergency after having a fall due to tripping at home. He was found to have left radius distal fracture and he underwent open reduction and internal fixation. As a part of preop evaluation he had a chest x-ray showing left upper lobe mass suspicious for malignancy. Today the patient is in the bed appears to be less confused than yesterdya. Sitter at the bed side and helping him keeping him oriented with verbal comma nds. As per the nursing staff report patient has been less confused but still refusing to eat or drink. He would not let anybody touch him. Review of systems -could not be done as the patient is confused Patient's medications and labs have been reviewed. Active Medications Amlodipine Besylate (Norvasc) 10 mg PO DAILY [facility] Last Admin: 07/14/18 10:27 Dose: Not Given Documented by: Atorvastatin Calcium (Lipitor) 10 mg PO [facility] Last Admin: 07/14/18 21:13 Dose: 10 mg Documented by: Donepezil HCl (Aricept) 20 mg PO DAILY [facility] Last Admin: 07/14/18 10:27 Dose: Not Given Documented by: Doxazosin Mesylate (Cardura) 4 mg PO [facility] Last Admin: 07/14/18 21:12 Dose: 4 mg Documented by: Gabapentin (Neurontin) 300 mg PO [facility] Last Admin: 07/14/18 21:13 Dose: Not Given Documented by: Gabapentin (Neurontin) 600 mg PO BID [facility] Last Admin: 07/14/18 21:12 Dose: 600 mg Documented by: Hydromorphone HCl (Dilaudid) 0.25 mg IVP Q3HR PRN PRN Reason: Pain Scale 7 to 10 Last Admin: 07/14/18 04:47 Dose: 0.25 mg Documented by: Sodium Chloride (Saline 0.9%) 1,000 mls @ 20 mls/hr IV .Q24H [facility] Last Admin: 07/14/18 21:14 Dose: 20 mls/hr Documented by: Lorazepam (Ativan) 0.5 mg IV Q6HR PRN PRN Reason: Anxiety Last Admin: 07/14/18 07:36 Dose: 0.5 mg Documented by: Metoprolol Tartrate (Lopressor) 12.5 mg PO BID [facility] Last Admin: 07/14/18 21:13 Dose: 12.5 mg Documented by: Naloxone HCl (Narcan) 0.2 mg IV Q2M PRN PRN Reason: Opioid Reversal Oxycodone/Acetaminophen (Percocet 5-325) 1 each PO Q6HR PRN PRN Reason: Pain Last Admin: 07/14/18 10:25 Dose: 1 each Documented by: Objective - Vital Signs Vital signs: Vital Signs Temp 98.6 F 07/14/18 01:40 Pulse 86 07/14/18 08:24 Resp 16 07/14/18 08:24 BP 159/74 07/14/18 08:24 Pulse Ox 93 L 07/14/18 08:24 Intake & Output 07/13/18 07/14/18 07/14/18 18:59 06:59 18:59 Output Total 150 Balance -150 Output: Urine 150 Other: Voiding Method Diaper Diaper Incontinent Incontinent # Voids 3 1 1 - Exam Physical exam. Gen. examination - patient appears to be very confused, keeps pushing away while trying to examine him Head - normocephalic Eyes- pupils round and reactive to light ENT- : Mucosa is moist Neck -no palpable masses Respiratory -bilateral breath sounds are positive. No wheezes or crackles. Cardiovascular- S1-S2 heard Abdomen -soft nontender. Normal breath sounds Extremities- no edema in bilateral lower extremities. left upper extremity is in a cast. Neurological - patient is very confused. He is able to move all extremities. - Labs CBC & Chem 7: 07/14/18 07:22 07/14/18 07:22 Labs: Abnormal Lab Results - Last 24 Hours (Table) 07/14/18 07/14/18 Range/Units 07:22 07:22 RBC 3.87 L (4.30-5.90) m/uL Hgb 11.9 L (13.0-17.5) gm/dL Hct 36.6 L (39.0-53.0) % Plt Count 106 L (150-450) k/uL Glucose 108 H (74-99) mg/dL Assessment and Plan Assessment: ASSESSMENT Fracture of the left distal radius after a mechanical fall - status post ORIF postop day 2 Acute delirium - most likely due to post anesthesia effect Left upper lobe mass on the chest x-ray Alzheimer's dementia Hypertension Hyperlipidemia History of CVA Moderate aortic stenosis GERD PLAN: Patient has postop delirium currently. We'll continue with pain management - on Percocet currently. Continue with sitter at the bedside for better orientation. He has been getting Ativan on PRN basis to calm him down, which seems to be helping him. The treatment plan was discussed in detail with the nursing staff . Dr. Rachel covering him from tomorrow.
--- NOTE | 2018-07-15 08:13 | FL ---
EXAMINATION TYPE: FL guidance operating room DATE OF EXAM: 07/12/2018 CLINICAL HISTORY: Left wrist fracture. TECHNIQUE: Fluoroscopy. COMPARISON: None. FINDINGS: Fluoroscopic guidance was provided during open reduction internal fixation procedure perfo rmed by Dr. Quesada. A total of 58 seconds of fluoroscopic time was utilized during the procedure and four spot images was acquired. IMPRESSION: As Above.
--- NOTE | 2018-07-15 08:56 | P.PN ---
<Alisa Amaya - Last Filed: 07/15/18 08:49> Subjective Progress Note Date: 07/15/18 Principal diagnosis: Status post ORIF left distal radius This is an 87 year-old male post ORIF left distal radius. This is post-op day 3. The patient was evaluated at the bedside today. He is currently sleeping. According to nursing staff, the patient is much less confused and appears to be comfortable at this time. He is receiving Percocet as needed. We are awaiting rehab placement possibly today. Objective - Vital Signs Vital signs: Vital Signs Temp 98.1 F 07/15/18 08:00 Pulse 78 07/15/18 08:00 Resp 16 07/15/18 08:00 BP 118/56 07/15/18 08:00 Pulse Ox 91 L 07/15/18 08:00 Intake & Output 07/14/18 07/15/18 07/15/18 18:59 06:59 18:59 Intake Total 380 Balance 380 Intake: Intake, IV Titration 180 Amount Sodium Chloride 0.9% 1, 180 000 ml @ 20 mls/hr IV . Q24H [facility] Rx#:[id number] Oral 200 Other: Voiding Method Diaper Urinal Incontinent Diaper Incontinent # Voids 1 3 - Exam The patient is an 87-year-old male who is in no acute distress. The patient is sleeping and was not awoken. The splint on the left arm is clean, dry, and intact. Fingers are warm with a brisk cap refill. - Labs CBC & Chem 7: 07/14/18 07:22 07/14/18 07:22 Assessment and Plan (1) Distal radius fracture Current Visit: Yes Status: Acute Priority: Medium Code(s): S52.509A - UNSP FRACTURE OF THE LOWER END OF UNSP RADIUS, INIT SNOMED Code(s): 031468804 (2) Fall Current Visit: Yes Status: Acute Code(s): W19.XXXA - UNSPECIFIED FALL, INITIAL ENCOUNTER SNOMED Code(s): 5885681 (3) Dementia Current Visit: Yes Status: Acute Code(s): F03.90 - UNSPECIFIED DEMENTIA WITHOUT BEHAVIORAL DISTURBANCE SNOMED Code(s): 06306264 Plan: 1. Continue pain control, use Percocet sparingly. May alternate with acetaminophen. 2. Keep dressing and splint clean, dry, and intact. 3. Elevate and ice left wrist. Encourage finger motion. 4. Anticipate discharge to [facility] when cleared medically. Orthopedically stable for discharge. <Keyshawn Quesada Keeley - Last Filed: 07/15/18 18:52> Objective - Vital Signs Vital signs: Vital Signs Temp 97.6 F 07/15/18 15:06 Pulse 70 07/15/18 15:06 Resp 16 07/15/18 15:06 BP 106/53 07/15/18 15:06 Pulse Ox 95 07/15/18 15:06 Intake & Output 07/14/18 07/15/18 07/15/18 18:59 06:59 18:59 Intake Total 380 1036 Balance 380 1036 Weight 86.183 kg Intake: Intake, IV Titration 180 Amount Sodium Chloride 0.9% 1, 180 000 ml @ 20 mls/hr IV . Q24H [facility] Rx#:[id number] Oral 200 1036 Other: Voiding Method Diaper Urinal Urinal Incontinent Diaper Diaper Incontinent Incontinent # Voids 1 3 - Labs CBC & Chem 7: 07/14/18 07:22 07/14/18 07:22 Assessment and Plan Plan: Above reviewed. Discussed with MIKE Amaya and agree with assessment and plan. Pt was also subsequently seen and examined by me. Splint in place but disheveled (pt continues to try removing it). Mild/appropriate digital edema. Pt actively moving fingers. Hand warm and well perfused. A/P: POD #3 s/p ORIF left distal radius fracture Keep splint in place. Pt may use hand without restriction but do not use for ambulation with a walker (use platform if necessary). Ok to DC from ortho standpoint. Follow up outpatient in 10 days for wound check and repeat xrays
[2018-07-15] MEDS: amLODIPine 10 MG TAB PO SCH (09:49)
[2018-07-15] MEDS: METOPROLOL TARTRATE 25 MG TAB PO SCH ×2 (09:50→20:17)
[2018-07-15] MEDS: GABAPENTIN 300 MG CAP PO SCH ×3 (09:50→20:18)
[2018-07-15] MEDS: DONEPEZIL 10 MG TAB PO SCH (09:50)
[2018-07-15] MEDS: oxyCODONE-APAP 5-325MG 1 EACH TAB PO PRN ×2 (13:59→20:17)
[2018-07-15] MEDS: ATORVASTATIN 10 MG TAB PO SCH (20:17)
[2018-07-15] MEDS: DOXAZOSIN 4 MG TAB PO SCH (20:19)
[2018-07-15] MEDS: SODIUM CHLORIDE 0.9% 1,000 ML IV SCH (20:20)
[2018-07-15] MEDS: ENOXAPARIN 40 MG/0.4 ML SYRINGE SQ SCH (22:17)
--- NOTE | 2018-07-15 23:11 | PN ---
PROGRESS NOTE DATE OF SERVICE: 07/15/2018 PRESENTING COMPLAINT: Fall. INTERVAL HISTORY: This is a patient who presented with fall, had ORIF of the right radius and was a bit delirious. Doing better today. Sitting up in a chair. Did tolerate his meals. Family at the bedside. Patient was just made inpatient yesterday 3 nights. Patient is going to the ECF. REVIEW OF SYSTEMS: Done for constitutional, cardiovascular, GI, pulmonary; relevant findings as above. CURRENT MEDICATIONS: Reviewed. PHYSICAL EXAMINATION: Temperature 97.6 pulse 70, respiration 16, blood pressure 106/53, pulse ox 95% on room air. GENERAL APPEARANCE: Sitting up on a chair, awake. EYES: Pupils equal. Conjunctivae normal. NECK: JVD not raised. Mass not palpable. RESPIRATORY: Effort normal. LUNGS: Decreased breath sounds. CARDIOVASCULAR: First and second sounds normal. No edema. ABDOMEN: Soft, non-tender. Liver and spleen not palpable. PSYCHIATRY: Can answer some simple questions. EXTREMITIES: Right wrist in a support. INVESTIGATIONS: White count 9.4, hemoglobin 11.9, potassium 3.8. ASSESSMENT: 1. Right radial distal fracture followed by open reduction internal fixation. 2. Upper lung mass. Need to keep malignancy in the differential. 3. Chronic obstructive pulmonary disease in an ex-smoker. 4. Alzheimer's dementia with major cognitive impairment. 5. Gastroesophageal reflux disease. 6. Hard of hearing. 7. Essential hypertension. 8. Hyperlipidemia. 9. Peripheral neuropathy, idiopathic. 10.Moderate aortic stenosis, non-rheumatic. PLAN: Care was discussed with family at the bedside. Wait 3 nights before patient can go to the ECF. MMODL / IJN: [id number] /
[2018-07-16] MEDS: ENOXAPARIN 40 MG/0.4 ML SYRINGE SQ SCH (07:35)
[2018-07-16] MEDS: GABAPENTIN 300 MG CAP PO SCH ×3 (07:35→20:48)
[2018-07-16] MEDS: DONEPEZIL 10 MG TAB PO SCH (07:35)
[2018-07-16] MEDS: amLODIPine 10 MG TAB PO SCH (07:35)
[2018-07-16] MEDS: METOPROLOL TARTRATE 25 MG TAB PO SCH ×2 (07:35→20:48)
[2018-07-16] MEDS: oxyCODONE-APAP 5-325MG 1 EACH TAB PO PRN ×3 (07:37→20:48)
--- NOTE | 2018-07-16 09:44 | P.PN ---
<Alisa Amaya - Last Filed: 07/16/18 09:45> Subjective Progress Note Date: 07/16/18 Principal diagnosis: Status post ORIF left distal radius This is an 87 year-old male post ORIF left distal radius. This is post-op day 4. The patient was evaluated at the bedside today with a sitter present. According to the nursing staff, patient has been picking at his splint and removed his splint last night. The nursing staff applied a soft cast until this morning. He currently denies pain in the wrist. Objective - Vital Signs Vital signs: Vital Signs Temp 98.8 F 07/16/18 07:49 Pulse 86 07/16/18 07:49 Resp 18 07/16/18 07:49 BP 132/77 07/16/18 07:49 Pulse Ox 95 07/16/18 07:49 Intake & Output 07/15/18 07/16/18 07/16/18 18:59 06:59 18:59 Intake Total 1036 900 Balance 1036 900 Weight 86.183 kg Intake: Oral 1036 900 Other: Voiding Method Urinal Urinal Diaper Diaper Incontinent Incontinent # Voids 3 - Exam The patient is an 87-year-old male who is in no acute distress. He is alert and oriented x1. Exam of the left wrist reveals sutures in place. There is no signs or symptoms of infection. There is no active drainage. There is finger stiffness present and pain upon passive range of motion of the fingers and thumb. Mild swelling to the wrist and hand. A short arm cast was applied. Neurological and circulatory status is intact. - Labs CBC & Chem 7: 07/14/18 07:22 07/14/18 07:22 Assessment and Plan (1) Distal radius fracture Current Visit: Yes Status: Acute Priority: Medium Code(s): S52.509A - UNSP FRACTURE OF THE LOWER END OF UNSP RADIUS, INIT SNOMED Code(s): 007300184 (2) Fall Current Visit: Yes Status: Acute Code(s): W19.XXXA - UNSPECIFIED FALL, INITIAL ENCOUNTER SNOMED Code(s): 1130714 (3) Dementia Current Visit: Yes Status: Acute Code(s): F03.90 - UNSPECIFIED DEMENTIA WITHOUT BEHAVIORAL DISTURBANCE SNOMED Code(s): 00925575 Plan: 1. Continue pain control, use Percocet sparingly. May alternate with acetaminophen. 2. Keep short arm cast clean, dry, and intact. 3. Elevate and ice left wrist. Encourage finger motion. 4. Anticipate discharge to [facility] tomorrow. Ok for discharge from an orthopedic standpoint. <Keyshawn Quesada - Last Filed: 07/16/18 14:15> Objective - Vital Signs Vital signs: Vital Signs Temp 98.8 F 07/16/18 07:49 Pulse 86 07/16/18 07:49 Resp 18 07/16/18 07:49 BP 132/77 07/16/18 07:49 Pulse Ox 95 07/16/18 07:49 Intake & Output 07/15/18 07/16/18 07/16/18 18:59 06:59 18:59 Intake Total 1036 900 Balance 1036 900 Weight 86.183 kg Intake: Oral 1036 900 Other: Voiding Method Urinal Urinal Urinal Diaper Diaper Diaper Incontinent Incontinent Incontinent # Voids 3 2 - Labs CBC & Chem 7: 07/14/18 07:22 07/14/18 07:22 Assessment and Plan Plan: Discussed with MENDOZA Amaya and agree with above. Patient was subsequently seen and examined by myself as well. Cast in place, clean and well-padded. Mild, appropriate pain with passive digital extension. Minimal edema Plan as outlined above. Follow up outpatient in 10 days. Keyshawn Quesada D.O. [facility]
[2018-07-16] MEDS: DOXAZOSIN 4 MG TAB PO SCH (20:47)
[2018-07-16] MEDS: ATORVASTATIN 10 MG TAB PO SCH (20:47)
--- NOTE | 2018-07-17 04:54 | PN ---
PROGRESS NOTE DATE OF SERVICE: 07/16/2018 PRESENTING COMPLAINT: Fall. INTERVAL HISTORY: Patient presented with fall, now has an ORIF to the left radius. The patient has been doing well, sitting up, tolerating his meals. May need to go to the rehab. Pain is controlled. Family is at the bedside. REVIEW OF SYSTEMS: Done for constitutional, cardiovascular, GI, pulmonary, musculoskeletal; relevant findings as above. MEDICATIONS: Current medications are reviewed. PHYSICAL EXAMINATION: On examination, temperature 97.7, pulse 80, respiration 16, blood pressure 108/69, pulse ox 96% on room air. GENERAL APPEARANCE: Sitting up in a chair, eating his meal, smiling. EYES: Pupils equal. Conjunctivae normal. NECK: JVD not raised. Mass not palpable. RESPIRATORY: Effort . LUNGS: Decreased breath sounds. CARDIOVASCULAR: First and second sounds normal. No edema. ABDOMEN: Soft, nontender. Liver and spleen not palpable. PSYCHIATRY: Awake, answering simple questions. EXTREMITIES: Left wrist in a cast. INVESTIGATIONS: White count 9.4, hemoglobin 11.9, potassium 3.8. ASSESSMENT: 1. Left radial distal fracture followed by ORIF. 2. Upper lung mass. 3. Chronic obstructive pulmonary disease in an ex-smoker. 4. Alzheimer's dementia with major cognitive impairment. 5. Gastroesophageal reflux disease. 6. Hard of hearing. 7. Essential hypertension. 8. Hyperlipidemia. 9. Peripheral neuropathy, idiopathic. 10.Moderate aortic stenosis, nonrheumatic. PLAN: Continue current medication and treatment plan. Spoke to the family. He will go to the [facility] tomorrow. MMBERTL / DEANNEN: [id number] /
[2018-07-17] MEDS: oxyCODONE-APAP 5-325MG 1 EACH TAB PO PRN ×2 (07:18→15:06)
[2018-07-17] MEDS: DONEPEZIL 10 MG TAB PO SCH (07:18)
[2018-07-17] MEDS: GABAPENTIN 300 MG CAP PO SCH (07:18)
[2018-07-17] MEDS: amLODIPine 10 MG TAB PO SCH (07:18)
[2018-07-17] MEDS: ENOXAPARIN 40 MG/0.4 ML SYRINGE SQ SCH (07:19)
[2018-07-17] MEDS: METOPROLOL TARTRATE 25 MG TAB PO SCH (07:19)
[2018-07-17 08:14] VITALS: RESP 15
--- NOTE | 2018-07-17 09:27 | CDI ---
Documentation Clarification Form Date: 07/17/2018 8:35:01 AM From: Neelam Seaman RN, CCDS Admit Date: 07/14/2018 3:36:00 AM Patient Name: Vinny Ambrosio Visit Number: [id number] Discharge Date: ATTENTION: The Clinical Documentation Specialists (CDI) and [facility] Coding Staff appreciate your assistance in clarifying documentation. Please respond to the clarification below the line at the bottom and electronically sign. The CDI & [facility] Coding staff will review the response and follow-up if needed. Please note: Queries are made part of the Legal Health Record. If you have any questions, please contact the author of this message via ITS. Dr. Katherine Simon Acute delirium-most likely due to post anesthesia effect is documented in the progress note on 07/13/18 and continue on 07/14/18. Patients Admitting Diagnosis: Fall with left distal radius fracture Post-Operative Diagnosis: Same Procedure performed: ORIF Left distal Radius History/Risk Factors: hyperlipidemia, Hypertension, COPD, Alzheimer's dementia with major cognitive impairment Clinical Indicators: Patient is confused with minimal verbal action. Patient does not appear anxious or agitated. He is excitable, noncompliant and at times, aggressive with staff. 07/13/18 Post op day 1 for ORIF left distal radius fracture. Dementia +/- postop delirium Vital signs: 145/68 92 18 97.8 Treatment: Neurological assessment per protocol 1:1 Sitter Monitor labs In order to accurately reflect this patients severity of illness, please further clarify if the post-operative diagnosis is: An expected post-surgical condition related to other medical conditions (other please specify) An unexpected post-surgical condition (please specify) Other, please specify Unable to determine (Last Revision: July 2017) MTDD
--- NOTE | 2018-07-17 15:28 | DS ---
DISCHARGE SUMMARY DATE OF ADMISSION: 07/11/2018 DATE OF DISCHARGE: 07/17/2018 FINAL DIAGNOSES: 1. Left radial distal fracture followed by ORIF. 2. Left upper lung mass. 3. Chronic obstructive pulmonary disease in an ex-smoker. 4. Alzheimer's dementia with major cognitive impairment. 5. Gastroesophageal reflux disease. 6. Hard of hearing. 7. Essential hypertension. 8. Hyperlipidemia. 9. Peripheral neuropathy, idiopathic. 10.Moderate aortic stenosis, nonrheumatic. HOSPITAL COURSE: This patient presented with a fall with a fracture to the left distal radius, ORIF was carried out. Patient is able to carry on a simple conversation, otherwise has got cognitive impairment probably from underlying dementia. Patient has a lung mass. This will be followed as an outpatient by Pulmonary. CONSULTATION: 1. Dr. Quesada from Orthopedics. 2. Dr. James from Pulmonary. PHYSICAL EXAMINATION: Temperature 98.4, pulse 54, respiration 15, blood pressure 122/62, pulse ox 92% on room air. GENERAL: Sitting up, eating his lunch. LUNGS: Decreased breath sounds. CARDIOVASCULAR: First and second sounds normal. PSYCH: Able to answer some simple questions. Left arm in a cast. INVESTIGATIONS: Hemoglobin 11.9, BUN and creatinine is normal. DISCHARGE MEDICATIONS: 1. Aricept 20 mg a day. 2. Hytrin 5 mg q.h.s. 3. Iron 325 p.o. b.i.d. 4. Norvasc 10 mg a day. 5. Vitamin D3 one thousand units p.o. daily. 6. Zocor 20 mg q.h.s. 7. Tylenol 500 mg q.4 p.r.n. 8. Percocet 5 one tablet q.6 p.r.n. 9. Neurontin 300 mg p.o. t.i.d. 10.Lopressor 12.5 p.o. b.i.d. FOLLOWUP: Follow up with Dr. Robert after DC from the [facility]; Dr. Keyshawn Quesada on 07/26/2018; Dr. Tam at [facility]; Dr. James in 10 days. DISPOSITION: [facility]. Care was discussed with at the bedside. MMODL / IJN: [id number] /
[2018-07-17 15:35] VITALS: BP 126/67; PULSE 70; TEMP 98.3
== END 2018-07-17 16:53 | DRG 511 ==
LOC: EC 16:44 → 4SSUR 22:13 → OBSVTOIN 07-14 03:36
PROVIDERS: ADMIT Hospitalist; ATTEND Hospitalist
PROC: 0PSJ04Z Reposition Left Radius with Internal Fixation Device, Open Approach (ICD-10-PCS; principal; 2018-07-12 08:40)
DX: S52.572A Other intraarticular fracture of lower end of left radius, initial encounter for closed fracture (principal); F05 Delirium due to known physiological condition; J44.9 Chronic obstructive pulmonary disease, unspecified; G62.9 Polyneuropathy, unspecified; I35.0 Nonrheumatic aortic (valve) stenosis; G30.9 Alzheimer's disease, unspecified; F02.80 Dementia in other diseases classified elsewhere, unspecified severity, without behavioral disturbance, psychotic disturbance, mood disturbance, and anxiety; H91.90 Unspecified hearing loss, unspecified ear; I10 Essential (primary) hypertension; E78.5 Hyperlipidemia, unspecified; F32.9 Major depressive disorder, single episode, unspecified; F41.9 Anxiety disorder, unspecified; K21.9 Gastro-esophageal reflux disease without esophagitis; V48.4XXA Person boarding or alighting a car injured in noncollision transport accident, initial encounter; R32 Unspecified urinary incontinence; Z79.82 Long term (current) use of aspirin; Z79.899 Other long term (current) drug therapy; Z96.653 Presence of artificial knee joint, bilateral; Z98.41 Cataract extraction status, right eye; Z98.42 Cataract extraction status, left eye; Z86.73 Personal history of transient ischemic attack (TIA), and cerebral infarction without residual deficits; Z87.891 Personal history of nicotine dependence; Z91.81 History of falling; Z87.440 Personal history of urinary (tract) infections; Z96.1 Presence of intraocular lens; Z91.19 Patient's noncompliance with other medical treatment and regimen; Z82.0 Family history of epilepsy and other diseases of the nervous system
CPT/HCPCS: 25605; 36415; 64413; 70450; 71046; 72125; 73521; 80048; 80053; 81001; 85025; 96372; 96374; 99152; 99153; 99285

== ENCOUNTER 2019-01-08 17:08 | Emergency (ER) | payer MEDICARE ==
--- NOTE | 2019-01-08 17:43 | ED ---
Psych HPI - General Chief Complaint: Recheck/Abnormal Lab/Rx Stated Complaint: dementia Time Seen by Provider: 01/08/19 17:17 Source: EMS, RN notes reviewed, old records reviewed Mode of arrival: EMS Limitations: altered mental status, physical limitation - History of Present Illness Initial Comments: This is a 80-year-old male who is unable to give history secondary severe dementia coming from metal lodged for combative behavior throwing chairs. Patient is unable to give any history at this time. This patient's inability history history obtained from patient's chart as well as transporting EMS. Again patient transported but seems like for psychiatric evaluation secondary combative behavior. Patient appropriately and responding appropriately and is able to the directioned currently MD Complaint: altered mental status -: unknown Associated Psychiatric Symptoms: none History of same: Yes Quality: constant Improves With: none Worsens With: none Context: other (none) Associated Symptoms: denies other symptoms Treatments Prior to Arrival: placed on mental health hold - Related Data Home Medications Medication Instructions Recorded Confirmed Terazosin [Hytrin] 5 mg PO HS@209905/02/15 01/08/19 Abh Gel(Ativan/Benadryl/Haldol) 1 applic TOPICAL Q3H PRN 01/08/19 01/08/19 Abh Gel(Ativan/Benadryl/Haldol) 1 applic TOPICAL Q6H 01/08/19 01/08/19 Bisacodyl [Dulcolax] 10 mg RECTAL DAILY PRN 01/08/19 01/08/19 Cephalexin [Keflex] 500 mg PO BID@0800,2100 01/08/19 01/08/19 Gabapentin [Neurontin] 400 mg PO BID@0800,2100 01/08/19 01/08/19 Ipratropium-Albuterol Nebulize 3 ml INHALATION RT-QID PRN 01/08/19 01/08/19 [Duoneb 0.5 mg-3 mg/3 ml Soln] Lactose-Reduced Food [Ensure Plus] 120 ml PO TID@0800,1200,1700 01/08/19 01/08/19 Magic Cup 1 dose PO DAILY@1200 01/08/19 01/08/19 Magnesium Hydroxide [Milk of 7,200 mg PO Q48H PRN 01/08/19 01/08/19 Magnesia Concentrate] Metoprolol Tartrate [Lopressor] 12.5 mg PO BID@0800,1700 01/08/19 01/08/19 Na Phos,M-B/Na Phos,Di-Ba [Fleet 133 ml RECTAL DAILY PRN 01/08/19 01/08/19 Adult] QUEtiapine [SEROquel] 50 mg PO DAILY@1400 01/08/19 01/08/19 QUEtiapine [SEROquel] 75 mg PO HS 01/08/19 01/08/19 Sennosides [Senna] 8.6 mg PO BID@0800,1700 01/08/19 01/08/19 amLODIPine [Norvasc] 10 mg PO DAILY@0800 01/08/19 01/08/19 oxyCODONE HCL/ACETAMINOPHEN 1 tab PO BID@0800,2100 01/08/19 01/08/19 [Percocet 5-325 mg] oxyCODONE-APAP 5-325MG [Percocet 1 tab PO BID PRN 01/08/19 01/08/19 5-325 mg] Previous Rx's Medication Instructions Recorded Acetaminophen Tab [Tylenol Tab] 500 mg PO Q4H PRN #30 tablet 07/15/18 Allergies Allergy/AdvReac Type Severity Reaction Status Date / Time No Known Allergies Allergy Verified 01/08/19 18:27 Review of Systems ROS Statement: Those systems with pertinent positive or pertinent negative responses have been documented in the HPI. ROS Other: All systems not noted in ROS Statement are negative. Past Medical History Past Medical History: COPD, CVA/TIA, Dementia, GERD/Reflux, Hearing Disorder / Deafness, Hyperlipidemia, Hypertension Additional Past Medical History / Comment(s): Peripheral neuropathy in bilateral legs, past severe sepsis d/t UTI/encephalopathy/SVT d/t sepsis, moderate aortic stenosis, CVA years ago without residual, sinus problems, [place] bilaterally, falls, past skull fracture-forehead. History of Any Multi-Drug Resistant Organisms: None Reported Past Surgical History: Appendectomy, Back Surgery, Hernia Repair, Joint Replacement Additional Past Surgical History / Comment(s): L/R total knee arthroplasties, back surgery with pins/rods, bilateral cataract removals/lens implants, bilateral inguinal hernia repairs, colonoscopy Past Anesthesia/Blood Transfusion Reactions: No Reported Reaction Past Psychological History: Depression Smoking Status: Former smoker - Past Family History Father Additional Family Medical History / Comment(s): Father had hardening of the arteries. He at the age of 90.5 in a MVA. Mother Family Medical History: Neurologic Disorder Additional Family Medical History / Comment(s): Parkinsons General Exam Limitations: altered mental status General appearance: alert, in no apparent distress Head exam: Present: atraumatic, normocephalic, normal inspection Eye exam: Present: normal appearance, EOMI. Absent: scleral icterus, conjunctival injection, periorbital swelling ENT exam: Present: normal exam, mucous membranes moist Neck exam: Present: normal inspection. Absent: tenderness, meningismus, lymphadenopathy Respiratory exam: Present: normal lung sounds bilaterally. Absent: respiratory distress, wheezes, rales, rhonchi, stridor Cardiovascular Exam: Present: regular rate, normal rhythm, normal heart sounds. Absent: systolic murmur, diastolic murmur, rubs, gallop, clicks GI/Abdominal exam: Present: soft, normal bowel sounds. Absent: distended, tenderness, guarding, rebound, rigid Extremities exam: Present: normal inspection, full ROM, normal capillary refill. Absent: tenderness, pedal edema, joint swelling, calf tenderness Back exam: Present: normal inspection Neurological exam: Present: alert, oriented X3, CN II-XII intact Psychiatric exam: Present: normal affect, normal mood Skin exam: Present: warm, dry, intact, normal color. Absent: rash Course Vital Signs 01/08/19 17:13 Temperature 99.0 F Pulse Rate 68 Respiratory 16 Rate Blood Pressure 133/71 O2 Sat by Pulse 95 Oximetry - Reevaluation(s) Reevaluation #1: 01/08/19 17:41 Medical record as well as transfer paperwork is reviewed Medical Decision Making - Medical Decision Making 88 male was made clear for mental health, patient has urine and also sent, patient was seen and evaluated by psychiatry here in the ER and made okay for discharge home Disposition Clinical Impression: Dementia, Altered mental status Disposition: HOME SELF-CARE Condition: Fair Instructions (If sedation given, give patient instructions): Dementia (ED) Is patient prescribed a controlled substance at d/c from ED?: No Referrals: Ilia Tam DO [Primary Care Provider] - 1-2 days
[2019-01-08] MEDS ORDERED: LORazepam 2 MG/ML INJ IM STA (18:58)
[2019-01-08 21:11] LABS: Appearance,Urine Clear (Clear); Bilirubin,Urine Negative (Negative); Blood,Urine Negative (Negative); Color,Urine Yellow; Glucose,Urine (UA) Negative (Negative); Ketones,Urine Negative (Negative); Leukocyte Esterase,Urine Negative (Negative); Nitrite,Urine Negative (Negative); Protein,Urine Negative (Negative); Urobilinogen,Urine <2.0 mg/dL (<2.0)
[2019-01-08 21:54] VITALS: BP 107/88; PULSE 72; RESP 18; TEMP 98.9
== END 2019-01-08 21:55 | disposition home or self-care (01) ==
LOC: EC 17:08
DX: F03.90 Unspecified dementia, unspecified severity, without behavioral disturbance, psychotic disturbance, mood disturbance, and anxiety (principal); I10 Essential (primary) hypertension; G62.9 Polyneuropathy, unspecified; F32.9 Major depressive disorder, single episode, unspecified; H91.93 Unspecified hearing loss, bilateral; Z87.891 Personal history of nicotine dependence; Z79.891 Long term (current) use of opiate analgesic; Z79.899 Other long term (current) drug therapy; Z86.73 Personal history of transient ischemic attack (TIA), and cerebral infarction without residual deficits; Z87.440 Personal history of urinary (tract) infections; Z87.81 Personal history of (healed) traumatic fracture
CPT/HCPCS: 81003; 99285; 96372; J2060

== ENCOUNTER 2019-01-10 21:12 | Inpatient (IN) | payer MEDICARE ==
[2019-01-10] MEDS ORDERED: SODIUM CHLORIDE 0.9% 500 ML 500 ML IV ONE (21:18)
[2019-01-10] MEDS ORDERED: LORazepam 2 MG/ML INJ IM STA (21:19)
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
[2019-01-10 23:05] LABS: Basophils % (A) 1 %; Eosinophils # (A) 0.1 k/uL (0-0.7); Eosinophils % (A) 1 %; HCT 38.8 % (39.0-53.0); HGB 13.2 gm/dL (13.0-17.5); Lymphocytes # (A) 1.5 k/uL (1.0-4.8); Lymphocytes % (A) 26 %; MCH 31.8 pg (25.0-35.0); MCHC 33.9 g/dL (31.0-37.0); MCV 93.8 fL (80.0-100.0); Mean Platelet Volume 7.1; Monocytes # (A) 0.4 k/uL (0-1.0); Monocytes % (A) 6 %; Neutrophils # (A) 3.7 k/uL (1.3-7.7); Neutrophils % (A) 64 %; Platelet Count 128 k/uL (150-450); RBC 4.14 m/uL (4.30-5.90); RDW 14.3 % (11.5-15.5); WBC 5.8 k/uL (3.8-10.6)
[2019-01-10 23:15] LABS: Partial Thromboplastin Time 23.4 sec (22.0-30.0); Prothrombin Time 10.8 sec (9.0-12.0)
[2019-01-10 23:16] LABS: Albumin 3.6 g/dL (3.5-5.0); Calcium 9.3 mg/dL (8.4-10.2); Potassium 4.2 mmol/L (3.5-5.1); Total Bilirubin 0.5 mg/dL (0.2-1.3); Total Protein 6.5 g/dL (6.3-8.2)
--- NOTE | 2019-01-10 23:43 | CT ---
EXAMINATION TYPE: CT brain wo con DATE OF EXAM: 01/10/2019 COMPARISON: 07/11/2018 HISTORY: 1099.4 CT DLP: AMS mGycm Automated exposure control for dose reduction was used. FINDINGS: There is cerebral cortical atrophy. There is no mass effect nor midline shift. There is no sign of in tracranial hemorrhage. The calvarium is intact. IMPRESSION: CEREBRAL ATROPHY. NO ACUTE INTRACRANIAL ABNORMALITY. NO CHANGE.
--- NOTE | 2019-01-10 23:45 | XR ---
EXAMINATION TYPE: XR chest 1V portable DATE OF EXAM: 01/10/2019 COMPARISON: 07/11/2018 HISTORY: Altered mental status. Dementia. TECHNIQUE: Single frontal view of the chest is obtained. FINDINGS: Heart size is normal. There is a irregular 2.8 cm masslike density left upper lobe. There is coarsening of the pulmonary interstitial markings right lower lobe. There is no pleural effusion. There is no heart failure. IMPRESSION: Left upper lobe mass unchanged. There is new mild interstitial infiltrate right lower lo be compared to last exam.
[2019-01-11] MEDS ORDERED: CEFEPIME 2 GM in SODIUM CHLORIDE 0.9% 100 ML IVPB STA (00:23)
[2019-01-11] MEDS ORDERED: VANCOMYCIN IV PER PHARMACY 1 EACH MISC MISCELLANE PRN (00:23)
[2019-01-11] MEDS ORDERED: VANCOMYCIN 1,250 MG in SODIUM CHLORIDE 0.9% 250 ML IVPB STA (00:28)
[2019-01-11] MEDS ORDERED: NALOXONE 0.4 MG/ML 1 ML VIAL IV PRN (01:00)
[2019-01-11] MEDS ORDERED: IPRATROPIUM-ALBUTEROL 3 ML NEB INHALATION PRN (01:02)
[2019-01-11 01:36] LABS: Appearance,Urine Clear (Clear); Bilirubin,Urine Negative (Negative); Blood,Urine Small (Negative); Color,Urine Yellow; Glucose,Urine (UA) Negative (Negative); Ketones,Urine Negative (Negative); Leukocyte Esterase,Urine Negative (Negative); Mucus,Urine Rare /hpf; Nitrite,Urine Negative (Negative); PH, Urine 6.5 (5.0-8.0); Protein,Urine Negative (Negative); RBC,Urine 53 /hpf (0-5); Specific Gravity,Urine 1.014 (1.001-1.035); Urobilinogen,Urine <2.0 mg/dL (<2.0); WBC,Urine 1 /hpf (0-5)
[2019-01-11 01:37] LABS: Amphetamine Screen,Urine Not Detected (NotDetected); Barbiturate Screen,Urine Not Detected (NotDetected); Benzodiazepines Screen,Urine Detected (NotDetected); Cocaine Screen,Urine Not Detected (NotDetected); Methadone Screen, Urine Not Detected (NotDetected); Opiate Screen,Urine Not Detected (NotDetected); Oxycodone Screen, Urine Detected (NotDetected); Phencyclidine Screen,Urine Not Detected (NotDetected); Tricyclic Antidepressant,Urine Detected (NotDetected); Urn Cannabinoid Scrn Not Detected (NotDetected)
[2019-01-11] MEDS: SODIUM CHLORIDE 0.9% 1,000 ML IV SCH (02:08)
[2019-01-11] MEDS: LORazepam 2 MG/ML INJ IV PRN ×3 (02:42→19:14)
[2019-01-11] MEDS ORDERED: PANTOPRAZOLE 40 MG TABLET PO SCH (07:30)
[2019-01-11 07:39] LABS: Calcium 9.3 mg/dL (8.4-10.2); Magnesium 1.8 mg/dL (1.6-2.3); Phosphorus 3.2 mg/dL (2.5-4.5); Potassium 4.1 mmol/L (3.5-5.1)
[2019-01-11 07:54] LABS: T4, Free (Free Thyroxine) 0.88 ng/dL (0.78-2.19)
[2019-01-11] MEDS: PANTOPRAZOLE 40 MG/10 ML VIAL IV SCH (08:19)
[2019-01-11] MEDS ORDERED: LORazepam 2 MG/ML INJ IV STA (12:27)
[2019-01-11 12:35] VITALS: BMI 21.1
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
[2019-01-11] MEDS: VANCOMYCIN 1,250 MG in SODIUM CHLORIDE 0.9% 250 ML IVPB SCH (17:20)
[2019-01-11] MEDS ORDERED: HALOPERIDOL LACTATE 5 MG/ML 1 ML VIAL IM ONE (21:30)
[2019-01-11] MEDS ORDERED: BISACODYL 10 MG SUPP RECTAL PRN (23:02)
[2019-01-11] MEDS ORDERED: MAGNESIUM HYDROXIDE 2,400 MG/10 ML CUP PO PRN (23:02)
[2019-01-12] MEDS: SODIUM CHLORIDE 0.9% 1,000 ML IV SCH (02:30)
[2019-01-12] MEDS: LORazepam 2 MG/ML INJ IV PRN ×4 (04:51→21:02)
[2019-01-12] MEDS: PANTOPRAZOLE 40 MG/10 ML VIAL IV SCH (07:55)
[2019-01-12] MEDS ORDERED: NON FORMULARY DRUG (Lactose-Reduced Food [Ensure Plus] 120 ML) PO SCH (08:00)
[2019-01-12] MEDS: ENOXAPARIN 40 MG/0.4 ML SYRINGE SQ SCH (08:10)
[2019-01-12] MEDS: CEFEPIME 1 GM in SODIUM CHLORIDE 0.9% 50 ML IVPB SCH (08:10)
[2019-01-12 08:13] LABS: Basophils # (A) 0.1 k/uL (0-0.2); Basophils % (A) 1 %; Eosinophils # (A) 0.2 k/uL (0-0.7); Eosinophils % (A) 2 %; HCT 45.2 % (39.0-53.0); HGB 14.1 gm/dL (13.0-17.5); Lymphocytes # (A) 2.3 k/uL (1.0-4.8); Lymphocytes % (A) 34 %; MCH 30.2 pg (25.0-35.0); MCHC 31.2 g/dL (31.0-37.0); MCV 96.8 fL (80.0-100.0); Mean Platelet Volume 7.4; Monocytes # (A) 0.4 k/uL (0-1.0); Monocytes % (A) 6 %; Neutrophils # (A) 3.6 k/uL (1.3-7.7); Neutrophils % (A) 55 %; Platelet Count 135 k/uL (150-450); RBC 4.67 m/uL (4.30-5.90); RDW 14.4 % (11.5-15.5); WBC 6.6 k/uL (3.8-10.6)
[2019-01-12 08:18] LABS: Calcium 9.7 mg/dL (8.4-10.2); Potassium 4.5 mmol/L (3.5-5.1)
[2019-01-12] MEDS: GABAPENTIN 400 MG CAP PO SCH ×2 (08:27→20:52)
[2019-01-12] MEDS: METOPROLOL TARTRATE 25 MG TAB PO SCH ×2 (08:27→15:50)
[2019-01-12] MEDS: amLODIPine 10 MG TAB PO SCH (08:27)
[2019-01-12] MEDS: SENNOSIDES 8.6 MG TAB PO SCH ×2 (08:28→15:50)
[2019-01-12] MEDS: VANCOMYCIN 1,250 MG in SODIUM CHLORIDE 0.9% 250 ML IVPB SCH (09:54)
[2019-01-12] MEDS ORDERED: NON FORMULARY DRUG (Magic Cup 1 DOSE) PO SCH (12:00)
[2019-01-12] MEDS: QUEtiapine 100 MG TAB PO SCH (14:50)
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
[2019-01-12] MEDS: QUEtiapine 200 MG TAB PO SCH (20:52)
[2019-01-12] MEDS: DOXAZOSIN 4 MG TAB PO SCH (20:52)
[2019-01-12] MEDS ORDERED: HALOPERIDOL LACTATE 5 MG/ML 1 ML VIAL IM ONE ×2 (23:02→23:07)
[2019-01-13] MEDS: VANCOMYCIN 1,250 MG in SODIUM CHLORIDE 0.9% 250 ML IVPB SCH ×2 (02:10→17:53)
[2019-01-13] MEDS: SODIUM CHLORIDE 0.9% 1,000 ML IV SCH (05:40)
[2019-01-13] MEDS: LORazepam 2 MG/ML INJ IV PRN (06:06)
[2019-01-13] MEDS: CEFEPIME 1 GM in SODIUM CHLORIDE 0.9% 50 ML IVPB SCH (07:50)
[2019-01-13] MEDS ORDERED: HALOPERIDOL LACTATE 5 MG/ML 1 ML VIAL IM ONE (08:00)
--- NOTE | 2019-01-13 11:18 | CDI ---
Documentation Clarification Form Date: 01/13/2019 10:58:16 AM From: Oly Rogel RN CCDS Admit Date: 01/11/2019 1:00:00 AM Patient Name: Vinny Ambrosio Visit Number: [id number] Discharge Date: ATTENTION: The Clinical Documentation Specialists (CDI) and [facility] Coding Staff appreciate your assistance in clarifying documentation. Please respond to the clarification below the line at the bottom and electronically sign. The CDI & [facility] Coding staff will review the response and follow-up if needed. Please note: Queries are made part of the Legal Health Record. If you have any questions, please contact the author of this message via ITS. Dr. Lisbeth Goins MD Pneumonia was documented in your H & P 01/11/2019 and Progress Note 01/12/2019 History/Risk Factors: 88-year-old male presents to the ED via EMS from [facility] for combative behavior and aggression. Clinical Indicators: Vital signs: 107/70 69 97.5 17 96% ra 01/2019 WBC 5.8 CXR: Left upper lobe mass unchanged. There is new mild interstitial. Lung/Breathing assessment: H& P 01/11/2019 No Wheezes. Decreased breath sounds at the lower lung bases. Treatment: Antibiotics Cefepime IVPB; Vancomycin Ivpb; Breathing Tx: Duonebs; In order to capture the severity of condition, please clarify if the condition signifies and you are treating for: * Aspiration Pneumonia, identify if (due to solids or liquids) * Gram Negative Pneumonia * Other bacteria (please specify) * Viral Pneumonia, specify casual organism (if known) * Other, please specify * Unable to determine (Last Revision: July 2017) Unable to determine MTDD
[2019-01-13] MEDS: METOPROLOL TARTRATE 25 MG TAB PO SCH ×2 (11:25→17:55)
[2019-01-13] MEDS: amLODIPine 10 MG TAB PO SCH (11:25)
[2019-01-13] MEDS: PANTOPRAZOLE 40 MG/10 ML VIAL IV SCH (11:25)
[2019-01-13] MEDS: SENNOSIDES 8.6 MG TAB PO SCH ×2 (11:25→17:55)
[2019-01-13] MEDS: ENOXAPARIN 40 MG/0.4 ML SYRINGE SQ SCH (11:25)
[2019-01-13] MEDS: GABAPENTIN 400 MG CAP PO SCH ×2 (11:25→20:52)
[2019-01-13] MEDS: QUEtiapine 100 MG TAB PO SCH (13:17)
--- NOTE | 2019-01-13 14:37 | P.CN ---
Psychiatric Consult - . Consult date: 01/13/19 Consult:: 01/13/19 14:29 IDENTIFYING DATA: This patient is a 88-year-old male who currently lives in a [facility] has a history of dementia with behavioral problems who was transferred for evaluation and treatment of agitation HISTORY OF PRESENT ILLNESS: The patient was brought to the hospital transferred from [facility] for agitation for the past 2 days as per EMR. Patient received a CT scan of his head which proved to be negative for any acute changes, received chest x-ray showing a right lobe infiltrate and was admitted for treatment. As per EMR notes, patient has been agitated and combative with care staff and is requiring a 11 sitter. As per nurse taking care of the patient, states that patient was agitated this morning and required 2 mg of Ativan and then Haldol which helped patient calmed down. Patient was seen at the bedside today for evaluation by psychiatry however patient was aggressive and irritable. Patient is a poor historian and most of what patient stated was unintelligible and difficult to comprehend. Patient got louder and creating more aggressive when advertising copy writer approached patient. Patient put up his hand as he was going to swing at advertising copy writer. Patient did not follow any commands. PAST PSYCHIATRIC HISTORY: Unable to assess at this time due to patient's mental status. PAST MEDICAL HISTORY: Dementia, stroke, COPD, hypertension, hyperlipidemia, neuropathy ALLERGIES: as per EMR. CHEMICAL DEPENDENCY HISTORY: Unable to assess at this time due to patient's mental status. FAMILY PSYCHIATRIC/SUBSTANCE USE HISTORY: Unable to assess at this time due to patient's mental status. SOCIAL HISTORY: Unable to assess at this time due to patient's mental status. MENTAL STATUS EXAM: General Appearance: Patient appears to be older stated age is alert, frail, and appears to be irritable. Patient has poor hygiene and poor grooming, poor eye contact. Behavior: Patient is lying in bed with agitated behavior. Speech: Patient's speech is unintelligible Mood/Affect: Patient reports their mood is unable to be assessed, affect is labile Suicidality/Homicidality: Unable to assess at this time due to patient's mental status. Perceptions: Unable to assess at this time due to patient's mental status. Though content/process: There is no evidence of any delusional thought content and thought process is unintelligible. Memory and concentration: AOX0, Cannot spell "WORLD" backwards Judgment and insight: Poor IMPRESSIONS: Delirium likely secondary to toxic-metabolic and infection History of dementia. PLAN: -Patient DOES NOT have decision making capacity at this time and is unable to reason through and communicate/appreciate the risks, benefits and alternatives to treatment. -Delirium precautions recommended with patient including - avoiding use of narcotics and ATHLETIC TRAINER sedatives, limit anticholinergic medications when possible, frequent re-orientation, minimize use of restraints, open window shades during the day and close them at night -Would recommend the following medication changes/additions: Discontinued Ativan, do not use any more benzodiazepines as it will exacerbate delirium. Ordered Haldol 2 mg every 8 hours when necessary for agitation. -Continue 1:1 sitter for safety -Cannot leave AMA at this time. Patient will need a petition and certification if attempting to leave AMA. -Continue his treatment of underlying electrolytes/metabolic/infectious problems. -Will continue to follow along
[2019-01-13] MEDS: HALOPERIDOL LACTATE 5 MG/ML 1 ML VIAL IM PRN ×2 (15:32→23:55)
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
[2019-01-13] MEDS ORDERED: VANCOMYCIN TROUGH DUE 1 EACH MISC MISCELLANE ONE (17:00)
[2019-01-13] MEDS: DOXAZOSIN 4 MG TAB PO SCH (20:52)
[2019-01-13] MEDS: QUEtiapine 200 MG TAB PO SCH (20:52)
[2019-01-14] MEDS: SODIUM CHLORIDE 0.9% 1,000 ML IV SCH (02:00)
[2019-01-14 07:33] LABS: Glucose,Whole Blood 99 mg/dL (75-99)
[2019-01-14] MEDS: GABAPENTIN 400 MG CAP PO SCH ×2 (09:33→21:24)
[2019-01-14] MEDS: SENNOSIDES 8.6 MG TAB PO SCH ×2 (09:33→17:43)
[2019-01-14] MEDS: amLODIPine 10 MG TAB PO SCH (09:33)
[2019-01-14] MEDS: METOPROLOL TARTRATE 25 MG TAB PO SCH ×2 (09:33→17:43)
[2019-01-14] MEDS: PANTOPRAZOLE 40 MG/10 ML VIAL IV SCH (09:33)
[2019-01-14] MEDS: CEFEPIME 1 GM in SODIUM CHLORIDE 0.9% 50 ML IVPB SCH (09:33)
[2019-01-14] MEDS: ENOXAPARIN 40 MG/0.4 ML SYRINGE SQ SCH (09:34)
[2019-01-14] MEDS: VANCOMYCIN 1,250 MG in SODIUM CHLORIDE 0.9% 250 ML IVPB SCH (10:37)
[2019-01-14] MEDS: QUEtiapine 100 MG TAB PO SCH ×2 (11:52→21:25)
--- NOTE | 2019-01-14 13:37 | P.PN ---
Progress Note - Text Progress Note Date: 01/14/19 Psychiatric progress note: Interval History: Patient was seen today for psychiatric follow-up for delirium and agitation/combative behavior. Overnight patient received one dose of Haldol 2 mg IM and was reported to sleep during the night. Ativan and all benzodiazepines were discontinued. Patient has been taking the Seroquel. As per nurse caring for patient, states that patient has been sleeping more today and was mildly agitated this morning and was pulling at some lines however it was found that patient needed to go to the bathroom and was directable and went back to sleep afterwards. When justowriter operator approach patient for evaluation and follow-up patient was somnolent however awoke and interacted mildly with justowriter operator, followed some commands and shook justowriter operator's hand. Patient continues to go speak nonsensically however does not appear to be agitated. Mental Status Exam: General Appearance: Patient appears to be older stated age is frail, and appears to be somnolent. Patient has poor hygiene and poor grooming, poor eye contact. Behavior: Patient is lying in bed without agitated behavior. Less agitated today. Speech: Patient's speech is unintelligible Mood/Affect: Patient reports their mood is unable to be assessed Suicidality/Homicidality: Unable to assess at this time due to patient's mental status. Perceptions: Unable to assess at this time due to patient's mental status. Though content/process: There is no evidence of any delusional thought content and thought process is unintelligible. Memory and concentration: AOX0, Cannot spell "WORLD" backwards Judgment and insight: Poor Assessment Delirium likely secondary to toxic-metabolic and infection History of dementia. Plan: -Medications: Can continue with Haldol 2 mg every 8 hours when necessary for agitation. We'll attempt to cut back on Seroquel as patient is oversedated. We'll decrease to dose of 75 mg daily +100 mg nightly. -Continue his treatment of underlying electrolytes/metabolic/infectious problems. -Will continue to follow along -SW on board for discharge planning.
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
[2019-01-14] MEDS: DOXAZOSIN 4 MG TAB PO SCH (21:25)
[2019-01-15] MEDS ORDERED: SODIUM CHLORIDE 0.9% 1,000 ML BAG ONE (00:50)
[2019-01-15] MEDS: SODIUM CHLORIDE 0.9% 1,000 ML IV SCH (07:42)
[2019-01-15] MEDS: VANCOMYCIN 1,250 MG in SODIUM CHLORIDE 0.9% 250 ML IVPB SCH ×2 (07:42→17:15)
[2019-01-15 08:36] LABS: Basophils # (A) 0.1 k/uL (0-0.2); Basophils % (A) 1 %; Eosinophils # (A) 0.2 k/uL (0-0.7); Eosinophils % (A) 2 %; HCT 42.6 % (39.0-53.0); HGB 13.8 gm/dL (13.0-17.5); Lymphocytes # (A) 1.6 k/uL (1.0-4.8); Lymphocytes % (A) 22 %; MCH 30.7 pg (25.0-35.0); MCHC 32.4 g/dL (31.0-37.0); MCV 94.8 fL (80.0-100.0); Mean Platelet Volume 7.7; Monocytes # (A) 0.5 k/uL (0-1.0); Monocytes % (A) 6 %; Neutrophils # (A) 4.9 k/uL (1.3-7.7); Neutrophils % (A) 67 %; Platelet Count 130 k/uL (150-450); RBC 4.49 m/uL (4.30-5.90); RDW 14.4 % (11.5-15.5); WBC 7.3 k/uL (3.8-10.6)
[2019-01-15 08:39] LABS: Calcium 9.4 mg/dL (8.4-10.2); Potassium 3.8 mmol/L (3.5-5.1)
[2019-01-15] MEDS: CEFEPIME 1 GM in SODIUM CHLORIDE 0.9% 50 ML IVPB SCH (09:23)
[2019-01-15] MEDS: PANTOPRAZOLE 40 MG/10 ML VIAL IV SCH (09:28)
[2019-01-15] MEDS: ENOXAPARIN 40 MG/0.4 ML SYRINGE SQ SCH (09:28)
--- NOTE | 2019-01-15 11:28 | CDI ---
Documentation Clarification Form Date: 01/15/2019 11:07:57 AM From: Oly Rogel RN CCDS Admit Date: 01/11/2019 1:00:00 AM Patient Name: Vinny Ambrosio Visit Number: [id number] Discharge Date: ATTENTION: The Clinical Documentation Specialists (CDI) and [facility] Coding Staff appreciate your assistance in clarifying documentation. Please respond to the clarification below the line at the bottom and electronically sign. The CDI & [facility] Coding staff will review the response and follow-up if needed. Please note: Queries are made part of the Legal Health Record. If you have any questions, please contact the author of this message via ITS. Dr. Lisbeth Goins MD Acute Encephalopathy is documented in the in the H & P 01/11/2019 History/Risk Factors: 88-year-old male presents to the ED for aggressive behavior for the past couple of days at the [facility]. Clinical Indicators: Labs: Wbc 5.8 ; CT/MRI Brain: 01/10/2019 Cerebral Atrophy. No acute intracranial abnormality. CXR 01/10/2019 Left upper lobe mass unchanged. There is new mild interstitial infiltrate right lower lobe compared to last exam. Treatment: Cefepime ivpb daily; Vancomycin ivpb Q 16 hrs Consults: Psychiatry 01/13/2019 Delirium likely secondary to toxic metabolic and infection. In your professional opinion, can you please clarify the specific type of Encephalopathy, if known? * Metabolic Encephalopathy * Toxic Encephalopathy * Other, please specify * Unable to determine (Last Revision: July 2017) Etiology was already dictated MTDD
[2019-01-15] MEDS: QUEtiapine 25 MG TAB PO SCH (11:49)
[2019-01-15] MEDS: GABAPENTIN 400 MG CAP PO SCH ×2 (11:49→22:17)
[2019-01-15] MEDS: METOPROLOL TARTRATE 25 MG TAB PO SCH ×2 (11:49→17:15)
[2019-01-15] MEDS: SENNOSIDES 8.6 MG TAB PO SCH ×2 (11:49→17:15)
[2019-01-15] MEDS: amLODIPine 10 MG TAB PO SCH (11:49)
[2019-01-15] MEDS: DOXAZOSIN 4 MG TAB PO SCH (22:17)
[2019-01-15] MEDS: QUEtiapine 100 MG TAB PO SCH (22:17)
--- NOTE | 2019-01-15 23:08 | P.PN ---
Progress Note - Text Progress Note Date: 01/15/19 Interval history: Admitted with increasing confusion and aggressive behavior. From the [facility]. [facility] stable medical conditions include COPD, GERD, hard of hearing, essential hypertension, left lung mass, Hyperlipidemia, peripheral neuropathy idiopathic, moderate aortic stenosis. Has underlying dementia. Seen by psychiatry. Diagnosed to have delirium. Haldol was added when necessary by psychiatry. Does of cervical was cut back to 75 mg. Today-patient woke up late. Do not eat his breakfast. And to call his medications. Laying in bed. Comfortable Progress review of systems, difficult to obtain Active Medications Albuterol/Ipratropium (Duoneb 0.5 Mg-3 Mg/3 Ml Soln) 3 ml INHALATION RT-QID PRN PRN Reason: Shortness Of Breath Amlodipine Besylate (Norvasc) 10 mg PO DAILY@0800 [facility] Last Admin: 01/15/19 11:49 Dose: 10 mg Documented by: Bisacodyl (Dulcolax) 10 mg RECTAL DAILY PRN PRN Reason: Constipation Doxazosin Mesylate (Cardura) 4 mg PO HS@2100 [facility] Last Admin: 01/15/19 22:17 Dose: 4 mg Documented by: Enoxaparin Sodium (Lovenox) 40 mg SQ DAILY [facility] Last Admin: 01/15/19 09:28 Dose: 40 mg Documented by: Gabapentin (Neurontin) 400 mg PO BID@0800,2100 [facility] Last Admin: 01/15/19 22:17 Dose: 400 mg Documented by: Haloperidol Lactate (Haldol) 2 mg IM Q8HR PRN PRN Reason: Agitation or Acute Psychosis Last Admin: 01/13/19 23:55 Dose: 2 mg Documented by: Sodium Chloride (Saline 0.9%) 1,000 mls @ 20 mls/hr IV .Q24H [facility] Last Admin: 01/15/19 07:42 Dose: Not Given Documented by: Vancomycin HCl 1,250 mg/ (Sodium Chloride) 250 mls @ 125 mls/hr IVPB Q16H [facility] Last Admin: 01/15/19 17:15 Dose: 125 mls/hr Documented by: Cefepime HCl 1 gm/ Sodium (Chloride) 50 mls @ 100 mls/hr IVPB DAILY [facility] Last Admin: 01/15/19 09:23 Dose: 100 mls/hr Documented by: Magnesium Hydroxide (Milk Of Magnesia) 2,400 mg PO Q48H PRN PRN Reason: Constipation x 2 days Metoprolol Tartrate (Lopressor) 12.5 mg PO BID@0800,1700 [facility] Last Admin: 01/15/19 17:15 Dose: 12.5 mg Documented by: Miscellaneous Information (Vancomycin Trough Due) 0 each MISCELLANE DIRECTED ONE Stop: 01/16/19 09:01 Naloxone HCl (Narcan) 0.2 mg IV Q2M PRN PRN Reason: Opioid Reversal Pantoprazole Sodium (Protonix) 40 mg IV DAILY [facility] Last Admin: 01/15/19 09:28 Dose: 40 mg Documented by: Quetiapine Fumarate (Seroquel) 100 mg PO HS [facility] Last Admin: 01/15/19 22:17 Dose: 100 mg Documented by: Quetiapine Fumarate (Seroquel) 75 mg PO DAILY [facility] Last Admin: 01/15/19 11:49 Dose: 75 mg Documented by: Senna (Senokot) 8.6 mg PO BID@0800,1700 [facility] Last Admin: 01/15/19 17:15 Dose: 8.6 mg Documented by: Physical examination: VITAL SIGNS: 98.9, 76, 17, 123/70, 96% room air GENERAL: Laying in bed, a bit tired. EYES: Pupils equal. Conjunctiva normal. HEENT: External appearance of nose and ears normal, oral cavity grossly normal. NECK: JVD not raised; masses not palpable. HEART: First and second heart sounds are normal; no edema. LUNGS: Respiratory rate normal; clear to auscultation. ABDOMEN: Soft, nontender, liver spleen not palpable, no masses palpable. PSYCH: Answering occasional questionl. INVESTIGATIONS, reviewed in the clinical context: White count 7.3 hemoglobin 13.8 percussion 3.8 creatinine 0.95 Urine drug screen was positive for oxycodone, tricyclic antidepressants, benzodiazepines Assessment: -Acute delirium, from pneumonia -Right lower lobe pneumonia, suspect gram-negative organism, POA -COPD in an ex-smoker -Severe cognitive impairment with late onset Alzheimer's dementia, behavioral changes -GERD -Hard of hearing -Essential hypertension -Hyperlipidemia -Idiopathic peripheral neuropathy -Moderate aortic stenosis, nontraumatic -Left lung mass being followed by pulmonary as an outpatient -CODE STATUS DO NOT RESUSCITATE Plan: Does of Jaimel was cut back. Yesterday. Keep on cefepime. DC vancomycin. Change to oral antibiotic.
[2019-01-16] MEDS: HALOPERIDOL LACTATE 5 MG/ML 1 ML VIAL IM PRN ×2 (01:16→17:21)
[2019-01-16] MEDS: SODIUM CHLORIDE 0.9% 1,000 ML IV SCH ×2 (01:18→23:43)
[2019-01-16] MEDS ORDERED: VANCOMYCIN TROUGH DUE 1 EACH MISC MISCELLANE ONE (09:00)
[2019-01-16] MEDS: SENNOSIDES 8.6 MG TAB PO SCH ×2 (09:37→18:01)
[2019-01-16] MEDS: CEFDINIR 300 MG CAP PO SCH ×2 (13:20→20:20)
[2019-01-16] MEDS: amLODIPine 10 MG TAB PO SCH (13:20)
[2019-01-16] MEDS: ENOXAPARIN 40 MG/0.4 ML SYRINGE SQ SCH (13:20)
[2019-01-16] MEDS: QUEtiapine 25 MG TAB PO SCH (13:20)
[2019-01-16] MEDS: GABAPENTIN 400 MG CAP PO SCH ×2 (13:20→20:20)
[2019-01-16] MEDS: METOPROLOL TARTRATE 25 MG TAB PO SCH ×2 (13:20→18:01)
[2019-01-16] MEDS: DOXAZOSIN 4 MG TAB PO SCH (20:20)
[2019-01-16] MEDS: QUEtiapine 100 MG TAB PO SCH (20:21)
--- NOTE | 2019-01-16 22:55 | P.PN ---
Progress Note - Text Progress Note Date: 01/16/19 Interval history: Admitted with increasing confusion and aggressive behavior. From the [facility]. [facility] stable medical conditions include COPD, GERD, hard of hearing, essential hypertension, left lung mass, Hyperlipidemia, peripheral neuropathy idiopathic, moderate aortic stenosis. Has underlying dementia. Seen by psychiatry. Diagnosed to have delirium. Haldol was added when necessary by psychiatry. Does of Seroquel was cut back to 75 mg. Today-patient again very sleepy this morning. Does speak to the nurse. Patient being woken up in the middle of the night to take vital signs. Patient did not sleep last night. Went to sleep early hours of the morning. Progress review of systems, difficult to obtain Active Medications Albuterol/Ipratropium (Duoneb 0.5 Mg-3 Mg/3 Ml Soln) 3 ml INHALATION RT-QID PRN PRN Reason: Shortness Of Breath Amlodipine Besylate (Norvasc) 10 mg PO DAILY@0800 [facility] Last Admin: 01/16/19 13:20 Dose: 10 mg Documented by: Bisacodyl (Dulcolax) 10 mg RECTAL DAILY PRN PRN Reason: Constipation Cefdinir (Omnicef) 300 mg PO BID [facility] Last Admin: 01/16/19 20:20 Dose: 300 mg Documented by: Doxazosin Mesylate (Cardura) 4 mg PO HS@2100 [facility] Last Admin: 01/16/19 20:20 Dose: 4 mg Documented by: Enoxaparin Sodium (Lovenox) 40 mg SQ DAILY [facility] Last Admin: 01/16/19 13:20 Dose: 40 mg Documented by: Gabapentin (Neurontin) 400 mg PO BID@0800,2100 [facility] Last Admin: 01/16/19 20:20 Dose: 400 mg Documented by: Haloperidol Lactate (Haldol) 2 mg IM Q8HR PRN PRN Reason: Agitation or Acute Psychosis Last Admin: 01/16/19 17:21 Dose: 2 mg Documented by: Sodium Chloride (Saline 0.9%) 1,000 mls @ 20 mls/hr IV .Q24H [facility] Last Admin: 01/16/19 01:18 Dose: 20 mls/hr Documented by: Magnesium Hydroxide (Milk Of Magnesia) 2,400 mg PO Q48H PRN PRN Reason: Constipation x 2 days Metoprolol Tartrate (Lopressor) 12.5 mg PO BID@0800,1700 [facility] Last Admin: 01/16/19 18:01 Dose: Not Given Documented by: Naloxone HCl (Narcan) 0.2 mg IV Q2M PRN PRN Reason: Opioid Reversal Quetiapine Fumarate (Seroquel) 100 mg PO HS [facility] Last Admin: 01/16/19 20:21 Dose: 100 mg Documented by: Quetiapine Fumarate (Seroquel) 75 mg PO DAILY [facility] Last Admin: 01/16/19 13:20 Dose: 75 mg Documented by: Senna (Senokot) 8.6 mg PO BID@0800,1700 [facility] Last Admin: 01/16/19 18:01 Dose: Not Given Documented by: Physical examination: VITAL SIGNS: 97.2, 73, 17, 122/88, 98% room air GENERAL: Laying in bed, sleepy. EYES: Pupils equal. Conjunctiva normal. HEENT: External appearance of nose and ears normal, oral cavity grossly normal. NECK: JVD not raised; masses not palpable. HEART: First and second heart sounds are normal; no edema. LUNGS: Respiratory rate normal; clear to auscultation. ABDOMEN: Soft, nontender, liver spleen not palpable, no masses palpable. PSYCH: Sleepy. INVESTIGATIONS, reviewed in the clinical context: No labs today. 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 Told him to post signs sleep hygiene. Patient not to be woken for vital signs after given his medication 9 PM, until there is a change in clinical status. What is happening is that patient's woken up at night after given medication etc. equal and is not able to sleep. See how that goes for 24 hours. Later in the evening a was called that patient became agitated. We'll the nurse to call psychiatry has been managing this aspect of the case. And keep informed.
[2019-01-17] MEDS: HALOPERIDOL LACTATE 5 MG/ML 1 ML VIAL IM PRN (00:24)
[2019-01-17] MEDS: SENNOSIDES 8.6 MG TAB PO SCH ×2 (08:47→19:01)
[2019-01-17] MEDS: METOPROLOL TARTRATE 25 MG TAB PO SCH ×2 (08:47→19:00)
[2019-01-17] MEDS: QUEtiapine 25 MG TAB PO SCH (08:47)
[2019-01-17] MEDS: amLODIPine 10 MG TAB PO SCH (08:47)
[2019-01-17] MEDS: GABAPENTIN 400 MG CAP PO SCH ×2 (08:47→21:21)
[2019-01-17] MEDS: ENOXAPARIN 40 MG/0.4 ML SYRINGE SQ SCH (08:50)
[2019-01-17] MEDS: CEFDINIR 300 MG CAP PO SCH ×2 (08:50→21:21)
--- NOTE | 2019-01-17 17:06 | P.PN ---
Progress Note - Text Progress Note Date: 01/17/19 Psychiatric progress note: Interval History: Patient was seen today for psychiatric follow-up for delirium and agitation/combative behavior. Overnight patient received one dose of Haldol 2 mg IM this morning for agitation. Patient was taking his Seroquel as noted by nurse however states that patient was being woken up in the night to do his vitals which may have been contributing to his agitation. When commercial insurance underwriter approached patient for follow-up patient was awake and appeared to be trying to move his blankets from the bed however was directable and did followed some commands. Patient continues to go speak nonsensically however does not appear to be agitated. Mental Status Exam: General Appearance: Patient appears to be older stated age is frail, and appears to be awake today. Patient has proving hygiene and grooming, poor eye contact. Behavior: Patient is lying in bed without agitated behavior. Less agitated today. Speech: Patient's speech is unintelligible Mood/Affect: mood is unable to be assessed Suicidality/Homicidality: Unable to assess at this time due to patient's mental status. Perceptions: Unable to assess at this time due to patient's mental status. Though content/process: There is no evidence of any delusional thought content and thought process is unintelligible. Memory and concentration: AOX0, Cannot spell "WORLD" backwards Judgment and insight: Poor Assessment Delirium likely secondary to toxic-metabolic and infection History of dementia. Plan: -Medications: Can continue with Haldol 2 mg every 8 hours when necessary for agitation. Can continue on Seroquel dose of 75 mg daily +100 mg nightly. Will add Depakene liquid 150 mg twice a day for mood stabilization/irritability. -Continue his treatment of underlying electrolytes/metabolic/infectious problems. -Will continue to follow along -SW on board for discharge planning. Continue to seek geriatric psychiatry unit placement.
[2019-01-17] MEDS ORDERED: DIVALPROEX ER 250 MG TAB.ER.24H PO SCH (21:00)
[2019-01-17] MEDS: DOXAZOSIN 4 MG TAB PO SCH (21:21)
[2019-01-17] MEDS: VALPROIC ACID ORAL SOLN 250 MG/5 ML CUP PO SCH (21:22)
[2019-01-17] MEDS: QUEtiapine 100 MG TAB PO SCH (21:22)
[2019-01-17] MEDS: MELATONIN 1 MG TAB PO SCH (21:22)
--- NOTE | 2019-01-17 22:18 | P.PN ---
Progress Note - Text Progress Note Date: 01/17/19 Interval history: Admitted with increasing confusion and aggressive behavior. From the ECF. C hronic stable medical conditions include COPD, GERD, hard of hearing, essential hypertension, left lung mass, Hyperlipidemia, peripheral neuropathy idiopathic, moderate aortic stenosis. Has underlying dementia. Seen by psychiatry. Diagnosed to have delirium. Haldol was added when necessary by psychiatry. Does of Seroquel was cut back to 75 mg. Today-patient is rather agitated yesterday evening. Did require Haldol. Later slept well. This morning awake. Did eat his breakfast. Comfortable postponing Progress review of systems, answering simple questions Active Medications Albuterol/Ipratropium (Duoneb 0.5 Mg-3 Mg/3 Ml Soln) 3 ml INHALATION RT-QID PRN PRN Reason: Shortness Of Breath Amlodipine Besylate (Norvasc) 10 mg PO DAILY@0800 [facility] Last Admin: 01/17/19 08:47 Dose: 10 mg Documented by: Bisacodyl (Dulcolax) 10 mg RECTAL DAILY PRN PRN Reason: Constipation Cefdinir (Omnicef) 300 mg PO BID [facility] Last Admin: 01/17/19 21:21 Dose: 300 mg Documented by: Doxazosin Mesylate (Cardura) 4 mg PO HS@2100 [facility] Last Admin: 01/17/19 21:21 Dose: 4 mg Documented by: Enoxaparin Sodium (Lovenox) 40 mg SQ DAILY [facility] Last Admin: 01/17/19 08:50 Dose: 40 mg Documented by: Gabapentin (Neurontin) 400 mg PO BID@0800,2100 [facility] Last Admin: 01/17/19 21:21 Dose: 400 mg Documented by: Haloperidol Lactate (Haldol) 2 mg IM Q8HR PRN PRN Reason: Agitation or Acute Psychosis Last Admin: 01/17/19 00:24 Dose: 2 mg Documented by: Sodium Chloride (Saline 0.9%) 1,000 mls @ 20 mls/hr IV .Q24H [facility] Last Admin: 01/16/19 23:43 Dose: Not Given Documented by: Magnesium Hydroxide (Milk Of Magnesia) 2,400 mg PO Q48H PRN PRN Reason: Constipation x 2 days Melatonin (Melatonin) 2 mg PO HS [facility] Last Admin: 01/17/19 21:22 Dose: 2 mg Documented by: Metoprolol Tartrate (Lopressor) 12.5 mg PO BID@0800,1700 [facility] Last Admin: 01/17/19 19:00 Dose: 12.5 mg Documented by: Naloxone HCl (Narcan) 0.2 mg IV Q2M PRN PRN Reason: Opioid Reversal Quetiapine Fumarate (Seroquel) 100 mg PO HS [facility] Last Admin: 01/17/19 21:22 Dose: 100 mg Documented by: Quetiapine Fumarate (Seroquel) 75 mg PO DAILY [facility] Last Admin: 01/17/19 08:47 Dose: 75 mg Documented by: Senna (Senokot) 8.6 mg PO BID@0800,1700 [facility] Last Admin: 01/17/19 19:01 Dose: 8.6 mg Documented by: Valproic Acid (Depakene Syrup) 125 mg PO BID [facility] Last Admin: 01/17/19 21:22 Dose: 125 mg Documented by: Physical examination: VITAL SIGNS: 97.5, 65, 18, 128/69, 96% room air GENERAL: Sitting up in bed, more awake EYES: Pupils equal. Conjunctiva normal. HEENT: External appearance of nose and ears normal, oral cavity grossly normal. NECK: JVD not raised; masses not palpable. HEART: First and second heart sounds are normal; no edema. LUNGS: Respiratory rate normal; clear to auscultation. ABDOMEN: Soft, nontender, liver spleen not palpable, no masses palpable. PSYCH: 6 simple questions INVESTIGATIONS, reviewed in the clinical context: No labs today. 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 Crane is from psychiatry.. 2. The patient current dose of Seroquel. He is having some Depakote for more stabilization. Did reinforce with the nurse and aid to maintain the sleep hygiene. Discharge planning so looking for geriatric psych placement. Eating much better.
[2019-01-18] MEDS: SODIUM CHLORIDE 0.9% 1,000 ML IV SCH (02:18)
[2019-01-18] MEDS: HALOPERIDOL LACTATE 5 MG/ML 1 ML VIAL IM PRN (03:11)
[2019-01-18] MEDS: QUEtiapine 25 MG TAB PO SCH (11:45)
[2019-01-18] MEDS: ENOXAPARIN 40 MG/0.4 ML SYRINGE SQ SCH (11:45)
[2019-01-18] MEDS: VALPROIC ACID ORAL SOLN 250 MG/5 ML CUP PO SCH ×2 (11:45→21:44)
[2019-01-18] MEDS: GABAPENTIN 400 MG CAP PO SCH ×2 (11:45→21:43)
[2019-01-18] MEDS: SENNOSIDES 8.6 MG TAB PO SCH ×2 (11:45→16:55)
[2019-01-18] MEDS: amLODIPine 10 MG TAB PO SCH (11:46)
[2019-01-18] MEDS: METOPROLOL TARTRATE 25 MG TAB PO SCH ×2 (11:46→16:54)
[2019-01-18] MEDS: CEFDINIR 300 MG CAP PO SCH (11:46)
--- NOTE | 2019-01-18 18:16 | P.PN ---
Progress Note - Text Progress Note Date: 01/18/19 Interval history: Admitted with increasing confusion and aggressive behavior. From the [facility]. [facility] stable medical conditions include COPD, GERD, hard of hearing, essential hypertension, left lung mass, Hyperlipidemia, peripheral neuropathy idiopathic, moderate aortic stenosis. Has underlying dementia. Seen by psychiatry. Diagnosed to have delirium. Haldol was added when necessary by psychiatry. Does of Seroquel was cut back to 75 mg. sleep hygiene cycle was introduced. Responding well to the same. Today-slept well last night. Through this morning. In the afternoon visit with the family.. Eating much better. Progress review of systems, answering simple questions Active Medications Albuterol/Ipratropium (Duoneb 0.5 Mg-3 Mg/3 Ml Soln) 3 ml INHALATION RT-QID PRN PRN Reason: Shortness Of Breath Amlodipine Besylate (Norvasc) 10 mg PO DAILY@0800 [facility] Last Admin: 01/18/19 11:46 Dose: 10 mg Documented by: Bisacodyl (Dulcolax) 10 mg RECTAL DAILY PRN PRN Reason: Constipation Cefdinir (Omnicef) 300 mg PO BID [facility] Last Admin: 01/18/19 11:46 Dose: 300 mg Documented by: Doxazosin Mesylate (Cardura) 4 mg PO HS@2100 [facility] Last Admin: 01/17/19 21:21 Dose: 4 mg Documented by: Enoxaparin Sodium (Lovenox) 40 mg SQ DAILY [facility] Last Admin: 01/18/19 11:45 Dose: 40 mg Documented by: Gabapentin (Neurontin) 400 mg PO BID@0800,2100 [facility] Last Admin: 01/18/19 11:45 Dose: 400 mg Documented by: Haloperidol Lactate (Haldol) 2 mg IM Q8HR PRN PRN Reason: Agitation or Acute Psychosis Last Admin: 01/18/19 03:11 Dose: 2 mg Documented by: Sodium Chloride (Saline 0.9%) 1,000 mls @ 20 mls/hr IV .Q24H [facility] Last Admin: 01/18/19 02:18 Dose: Not Given Documented by: Magnesium Hydroxide (Milk Of Magnesia) 2,400 mg PO Q48H PRN PRN Reason: Constipation x 2 days Melatonin (Melatonin) 2 mg PO HS [facility] Last Admin: 10/18/19 21:22 Dose: 2 mg Documented by: Metoprolol Tartrate (Lopressor) 12.5 mg PO BID@0800,1700 [facility] Last Admin: 01/18/19 16:54 Dose: 12.5 mg Documented by: Naloxone HCl (Narcan) 0.2 mg IV Q2M PRN PRN Reason: Opioid Reversal Quetiapine Fumarate (Seroquel) 100 mg PO HS [facility] Last Admin: 01/17/19 21:22 Dose: 100 mg Documented by: Quetiapine Fumarate (Seroquel) 75 mg PO DAILY [facility] Last Admin: 01/18/19 11:45 Dose: 75 mg Documented by: Senna (Senokot) 8.6 mg PO BID@0800,1700 [facility] Last Admin: 01/18/19 16:55 Dose: Not Given Documented by: Valproic Acid (Depakene Syrup) 125 mg PO BID [facility] Last Admin: 01/18/19 11:45 Dose: 125 mg Documented by: Physical examination: VITAL SIGNS: 95.1, 96, 18, 160/84, 98% room air GENERAL: Sitting up in bed, awake EYES: Pupils equal. Conjunctiva normal. HEENT: External appearance of nose and ears normal, oral cavity grossly normal. NECK: JVD not raised; masses not palpable. HEART: First and second heart sounds are normal; no edema. LUNGS: Respiratory rate normal; clear to auscultation. ABDOMEN: Soft, nontender, liver spleen not palpable, no masses palpable. PSYCH: Answering simple questions INVESTIGATIONS, reviewed in the clinical context: No labs today. 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 Continues to improve daily. Pending patient be placed to geriatric psychiatry unit.
[2019-01-18] MEDS: QUEtiapine 100 MG TAB PO SCH (21:43)
[2019-01-18] MEDS: MELATONIN 1 MG TAB PO SCH (21:43)
[2019-01-18] MEDS: DOXAZOSIN 4 MG TAB PO SCH (21:43)
[2019-01-19] MEDS: SODIUM CHLORIDE 0.9% 1,000 ML IV SCH ×2 (02:19→20:28)
[2019-01-19] MEDS: VALPROIC ACID ORAL SOLN 250 MG/5 ML CUP PO SCH ×2 (08:00→20:21)
[2019-01-19] MEDS: ENOXAPARIN 40 MG/0.4 ML SYRINGE SQ SCH (08:00)
[2019-01-19] MEDS: METOPROLOL TARTRATE 25 MG TAB PO SCH ×2 (08:00→16:42)
[2019-01-19] MEDS: GABAPENTIN 400 MG CAP PO SCH ×2 (08:01→20:21)
[2019-01-19] MEDS: SENNOSIDES 8.6 MG TAB PO SCH ×2 (08:01→16:42)
[2019-01-19] MEDS: amLODIPine 10 MG TAB PO SCH (08:01)
[2019-01-19] MEDS: QUEtiapine 25 MG TAB PO SCH (08:01)
--- NOTE | 2019-01-19 14:29 | P.PN ---
Progress Note - Text Progress Note Date: 01/19/19 Psychiatric progress note: Interval History: Patient was seen today for psychiatric follow-up for agitation/combative behavior. As per EMR and report from nurse taking care of patient, claims that patient has been more cooperative and has been sleeping better at night. and daughter were at the bedside and stated that they see that patient has been much improved since admission and is less agitated. Patient has been taking his medication has been cooperative with treatment. When display card writer approached patient for evaluation/exam patient was awake and appeared to be directable and interactive with display card writer. Patient followed commands and attempted to communicate at times however was and continues to be nonsensical or the most part. Patient was however able to state his name however unable to identify his family members in the room. Mental Status Exam: General Appearance: Patient appears to be older stated age is frail, and appears to be awake today and cooperative/directable. Patient has fair hygiene and grooming. Behavior: Patient is lying in bed without agitated behavior. Speech: Patient's speech is unintelligible Mood/Affect: mood is unable to be assessed Suicidality/Homicidality: Unable to assess at this time due to patient's mental status. Perceptions: Unable to assess at this time due to patient's mental status. Though content/process: There is no evidence of any delusional thought content and thought process is unintelligible. Memory and concentration: AOX1, Cannot spell "WORLD" backwards Judgment and insight: Chronically poor Assessment Delirium likely secondary to toxic-metabolic and infection, resolved History of dementia. Plan: -Medications: Can continue with Haldol 2 mg every 8 hours when necessary for agitation. Can continue on Seroquel dose of 75 mg daily +100 mg nightly. Continue with Depakene liquid 150 mg twice a day for mood stabilization/irritability. Patient to be continued on melatonin over increase to 3 mg nightly for sleep. -Patient has improved dramatically terms of his behaviors with above medications and also sleep hygiene (allowing patient to rest throughout the night, not interrupting for vitals and keeping the patient awake during the day with lights on). -SW on board for discharge planning. Patient can be discharged back to [facility] once medically cleared.
[2019-01-19] MEDS: DOXAZOSIN 4 MG TAB PO SCH (20:21)
[2019-01-19] MEDS: QUEtiapine 100 MG TAB PO SCH (20:21)
[2019-01-19] MEDS ORDERED: MELATONIN 3 MG TABLET PO SCH (21:00)
--- NOTE | 2019-01-19 23:57 | P.PN ---
Progress Note - Text Progress Note Date: 01/19/19 Interval history: Admitted with increasing confusion and aggressive behavior. From the [facility]. [facility] stable medical conditions include COPD, GERD, hard of hearing, essential hypertension, left lung mass, Hyperlipidemia, peripheral neuropathy idiopathic, moderate aortic stenosis. Has underlying dementia. Seen by psychiatry. Diagnosed to have delirium. Haldol was added when necessary by psychiatry. Does of Seroquel was cut back to 75 mg. sleep hygiene cycle was introduced. Responding well to the same. Today-patient condition improved. Able to answer simple questions. Tolerated diet. Sleep hygiene cycle been working really well. Family the bedside. Rather pleased with this improvement.. Progress review of systems, answering simple questions Active Medications Albuterol/Ipratropium (Duoneb 0.5 Mg-3 Mg/3 Ml Soln) 3 ml INHALATION RT-QID PRN PRN Reason: Shortness Of Breath Amlodipine Besylate (Norvasc) 10 mg PO DAILY@0800 [facility] Last Admin: 01/19/19 08:01 Dose: 10 mg Documented by: Bisacodyl (Dulcolax) 10 mg RECTAL DAILY PRN PRN Reason: Constipation Doxazosin Mesylate (Cardura) 4 mg PO HS@2100 [facility] Last Admin: 01/19/19 20:21 Dose: 4 mg Documented by: Enoxaparin Sodium (Lovenox) 40 mg SQ DAILY [facility] Last Admin: 01/19/19 08:00 Dose: 40 mg Documented by: Gabapentin (Neurontin) 400 mg PO BID@0800,2100 [facility] Last Admin: 01/19/19 20:21 Dose: 400 mg Documented by: Haloperidol Lactate (Haldol) 2 mg IM Q8HR PRN PRN Reason: Agitation or Acute Psychosis Last Admin: 01/18/19 03:11 Dose: 2 mg Documented by: Sodium Chloride (Saline 0.9%) 1,000 mls @ 20 mls/hr IV .Q24H [facility] Last Admin: 01/19/19 20:28 Dose: Not Given Documented by: Magnesium Hydroxide (Milk Of Magnesia) 2,400 mg PO Q48H PRN PRN Reason: Constipation x 2 days Melatonin (Melatonin) 3 mg PO HS [facility] Last Admin: 01/19/19 20:21 Dose: 3 mg Documented by: Metoprolol Tartrate (Lopressor) 12.5 mg PO BID@0800,1700 [facility] Last Admin: 01/19/19 16:42 Dose: 12.5 mg Documented by: Naloxone HCl (Narcan) 0.2 mg IV Q2M PRN PRN Reason: Opioid Reversal Quetiapine Fumarate (Seroquel) 100 mg PO HS [facility] Last Admin: 01/19/19 20:21 Dose: 100 mg Documented by: Quetiapine Fumarate (Seroquel) 75 mg PO DAILY [facility] Last Admin: 01/19/19 08:01 Dose: 75 mg Documented by: Senna (Senokot) 8.6 mg PO BID@0800,1700 [facility] Last Admin: 01/19/19 16:42 Dose: 8.6 mg Documented by: Valproic Acid (Depakene Syrup) 125 mg PO BID [facility] Last Admin: 01/19/19 20:21 Dose: 125 mg Documented by: Physical examination: VITAL SIGNS: 98.1, 91, 20, 127/55, 94% room air GENERAL: Sitting up in bed, awake EYES: Pupils equal. Conjunctiva normal. HEENT: External appearance of nose and ears normal, oral cavity grossly normal. NECK: JVD not raised; masses not palpable. HEART: First and second heart sounds are normal; no edema. LUNGS: Respiratory rate normal; clear to auscultation. ABDOMEN: Soft, nontender, liver spleen not palpable, no masses palpable. PSYCH: Answering simple questions, intermittent she confused INVESTIGATIONS, reviewed in the clinical context: No labs today. 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 Crane is from psychiatry. Patient felt to be stable to return to the ECF. Patient antibiotics have been discontinued. She will return to the ECF tomorrow. Care discussed with the family the bedside.
[2019-01-20 07:59] VITALS: BP 113/62; PULSE 74; RESP 18; TEMP 96.7
[2019-01-20] MEDS: VALPROIC ACID ORAL SOLN 250 MG/5 ML CUP PO SCH (07:59)
[2019-01-20] MEDS: METOPROLOL TARTRATE 25 MG TAB PO SCH (07:59)
[2019-01-20] MEDS: ENOXAPARIN 40 MG/0.4 ML SYRINGE SQ SCH (08:00)
[2019-01-20] MEDS: SENNOSIDES 8.6 MG TAB PO SCH (08:00)
[2019-01-20] MEDS: amLODIPine 10 MG TAB PO SCH (08:00)
[2019-01-20] MEDS: GABAPENTIN 400 MG CAP PO SCH (08:00)
[2019-01-20] MEDS: QUEtiapine 25 MG TAB PO SCH (08:03)
--- NOTE | 2019-01-20 13:29 | P.DS ---
Providers Date of admission: 01/11/19 01:00 Expected date of discharge: 01/20/19 Attending physician: Maxwell Rachel Consults: 01/12/19 06:46 Consult Physician Routine Consulting Provider: Ilia Crane Consult Reason/Comments: Aggression, Combative Do you want consulting provider notified?: Yes 01/17/19 15:36 Consult Physician Routine Consulting Provider: Ilia Crane Consult Reason/Comments: delirum Do you want consulting provider notified?: Already Contacted Primary care physician: [facility] Course: Hospital course: Admitted with increasing confusion and aggressive behavior. From the [facility]. Chronic stable medical conditions include COPD, GERD, hard of hearing, essential hypertension, left lung mass, Hyperlipidemia, peripheral neuropathy idiopathic, moderate aortic stenosis. Has underlying dementia. Seen by psychiatry. Diagnosed to have delirium. Haldol was added when necessary by psychiatry. Does of Seroquel was cut back to 75 mg. sleep hygiene cycle was introduced. Responding well to the same. patient condition improved. Able to answer simple questions. Tolerated diet. Sleep hygiene cycle been working really well. Discussion and discharge planning more than 35 minutes Consultation: Dr. Crane from psychiatry Physical examination: VITAL SIGNS: 96.7, 74, 18, 11 3/62, 95% room air GENERAL: Laying in bed, comfortable EYES: Pupils equal. Conjunctiva normal. HEENT: External appearance of nose and ears normal, oral cavity grossly normal. NECK: JVD not raised; masses not palpable. HEART: First and second heart sounds are normal; no edema. LUNGS: Respiratory rate normal; clear to auscultation. ABDOMEN: Soft, nontender, liver spleen not palpable, no masses palpable. PSYCH: Answering simple questions, intermittent confused INVESTIGATIONS, reviewed in the clinical context: No labs today. 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 as an outpatient -CODE STATUS DO NOT RESUSCITATE Disposition: [facility]CF/[facility] Patient Condition at Discharge: Fair Plan - Discharge Summary Discharge Rx Participant: No New Discharge Prescriptions: New Valproic Acid Oral Soln [Depakene Syrup] 125 mg PO BID ml Melatonin 3 mg PO HS tablet QUEtiapine [SEROquel] 100 mg PO HS #3 tab QUEtiapine [SEROquel] 50 mg PO DAILY #3 tab Continue Terazosin [Hytrin] 5 mg PO HS@2100 Acetaminophen Tab [Tylenol] 500 mg PO Q4H PRN #30 tablet PRN Reason: Mild Pain amLODIPine [Norvasc] 10 mg PO DAILY@0800 Magnesium Hydroxide [Milk of Magnesia Concentrate] 7,200 mg PO Q48H PRN PRN Reason: Constipation x 2 days Na Phos,M-B/Na Phos,Di-Ba [Fleet Adult] 133 ml RECTAL DAILY PRN PRN Reason: Constipation Ipratropium-Albuterol Nebulize [Duoneb 0.5 mg-3 mg/3 ml Soln] 3 ml INHALATION RT-QID PRN PRN Reason: Shortness Of Breath Bisacodyl [Dulcolax] 10 mg RECTAL DAILY PRN PRN Reason: Constipation Sennosides [Senna] 8.6 mg PO BID@0800,1700 Lactose-Reduced Food [Ensure Plus] 120 ml PO TID@0800,1200,1700 Metoprolol Tartrate [Lopressor] 12.5 mg PO BID@0800,1700 Gabapentin [Neurontin] 400 mg PO BID@0800,2100 Magic Cup 1 dose PO DAILY@1200 oxyCODONE-APAP 5-325MG [Percocet 5-325 mg] 1 tab PO BID PRN #6 tab PRN Reason: Pain Discontinued Abh Gel(Ativan/Benadryl/Haldol) 1 applic TOPICAL Q3H PRN PRN Reason: WRISTS FOR ANXIETY Abh Gel(Ativan/Benadryl/Haldol) 1 applic TOPICAL Q6H oxyCODONE HCL/ACETAMINOPHEN [Percocet 5-325 mg] 1 tab PO BID@0800,2100 LORazepam ORAL CONC [Ativan Intensol] 1 mg PO DAILY PRN PRN Reason: AGAITION QUEtiapine FUMARATE [SEROquel] 200 mg PO HS@2100 QUEtiapine [SEROquel] 100 mg PO DAILY@1400 Discharge Medication List Terazosin [Hytrin] 5 mg PO HS@2100 05/02/15 [History] Acetaminophen Tab [Tylenol] 500 mg PO Q4H PRN #30 tablet 07/15/18 [Rx] Bisacodyl [Dulcolax] 10 mg RECTAL DAILY PRN 01/08/19 [History] Gabapentin [Neurontin] 400 mg PO BID@0800,2100 01/08/19 [History] Ipratropium-Albuterol Nebulize [Duoneb 0.5 mg-3 mg/3 ml Soln] 3 ml INHALATION RT-QID PRN 01/08/19 [History] Lactose-Reduced Food [Ensure Plus] 120 ml PO TID@0800,1200,1700 01/08/19 [History] Magic Cup 1 dose PO DAILY@1200 01/08/19 [History] Magnesium Hydroxide [Milk of Magnesia Concentrate] 7,200 mg PO Q48H PRN 01/08/19 [History] Metoprolol Tartrate [Lopressor] 12.5 mg PO BID@0800,1700 01/08/19 [History] Na Phos,M-B/Na Phos,Di-Ba [Fleet Adult] 133 ml RECTAL DAILY PRN 01/08/19 [Histor y] Sennosides [Senna] 8.6 mg PO BID@0800,1700 01/08/19 [History] amLODIPine [Norvasc] 10 mg PO DAILY@0800 01/08/19 [History] Melatonin 3 mg PO HS tablet 01/20/19 [Rx] QUEtiapine [SEROquel] 50 mg PO DAILY #3 tab 01/20/19 [Rx] QUEtiapine [SEROquel] 100 mg PO HS #3 tab 01/20/19 [Rx] Valproic Acid Oral Soln [Depakene Syrup] 125 mg PO BID ml 01/20/19 [Rx] oxyCODONE-APAP 5-325MG [Percocet 5-325 mg] 1 tab PO BID PRN #6 tab 01/20/19 [Rx] Follow up Appointment(s)/Referral(s): Ilia Tam DO [Primary Care Provider] - 1-2 days
[2019-01-20] MEDS ORDERED: HALOPERIDOL LACTATE 5 MG/ML 1 ML VIAL IM PRN (13:33)
== END 2019-01-20 15:20 | DRG 177 ==
LOC: EC 21:12 → 3NMEDONC 01-11 01:00
PROVIDERS: ADMIT Hospitalist; ATTEND Hospitalist
DX: J15.6 Pneumonia due to other Gram-negative bacteria (principal); G92 Toxic encephalopathy; F02.81 Dementia in other diseases classified elsewhere, unspecified severity, with behavioral disturbance; J44.0 Chronic obstructive pulmonary disease with (acute) lower respiratory infection; F23 Brief psychotic disorder; I35.0 Nonrheumatic aortic (valve) stenosis; G30.1 Alzheimer's disease with late onset; Z51.5 Encounter for palliative care; Z66 Do not resuscitate; G60.9 Hereditary and idiopathic neuropathy, unspecified; R32 Unspecified urinary incontinence; R53.81 Other malaise; R91.8 Other nonspecific abnormal finding of lung field; G47.9 Sleep disorder, unspecified; E78.5 Hyperlipidemia, unspecified; F32.9 Major depressive disorder, single episode, unspecified; F41.9 Anxiety disorder, unspecified; H91.90 Unspecified hearing loss, unspecified ear; I10 Essential (primary) hypertension; K21.9 Gastro-esophageal reflux disease without esophagitis; Z79.899 Other long term (current) drug therapy; Z86.73 Personal history of transient ischemic attack (TIA), and cerebral infarction without residual deficits; Z87.891 Personal history of nicotine dependence; Z87.440 Personal history of urinary (tract) infections; Z96.653 Presence of artificial knee joint, bilateral; Z98.42 Cataract extraction status, left eye; Z98.41 Cataract extraction status, right eye; Z96.1 Presence of intraocular lens; Z90.49 Acquired absence of other specified parts of digestive tract; Z84.89 Family history of other specified conditions; Z82.0 Family history of epilepsy and other diseases of the nervous system; Y95 Nosocomial condition
CPT/HCPCS: 36415; 70450; 71045; 80048; 80053; 80202; 80306; 81001; 81003; 83735; 84100; 84439; 84443; 84484; 85025; 85610; 85730; 87040; 93005; 94760; 96361; 96365; 96367; 96372; 99285